=== PATIENT | female | born 1970 | race Caucasian/White ===

== ENCOUNTER → 2017-03-08 | Outpatient (REF) | payer MEDICARE ==
[~2017-03-08] MED LIST: /ONDA4TA PO; AMBI10TA PO; ANUS2.5C2 PR; BUSP15TA47 PO; DIAZ10TA2 PO; DIPH2.5L PO; DIVA500T9 PO; DRIS50002 PO; FOLI1TAB86 PO; HYDR25CA PO; LASI40TA PO; LORA10TA2 PO; MOBI7.5T10 PO; NICO21PAT EXT; OMEP40CA2 PO; ONDA4TAB2 PO; PROTPAK PO; ROBA750T4 PO; SERO1TAB PO; SERO50TA3 PO; SERT-141 PO; THERTAB20 PO; TOPI1CAP2 PO; TRAZ50TA4 PO; VALT1TAB PO; VIST50CA PO; VITA100T2 PO; ZOLO100T PO; ZOLO50TA PO; ZYPR5TAB2 PO; [UNRECOGNIZED DRUG - CODE] PO; [UNRECOGNIZED DRUG - CODE] PO; [UNRECOGNIZED DRUG - CODE] SC; [UNRECOGNIZED DRUG - OTHER] PO; pegasys PO
[2017-03-08 14:18] LABS: BASO % 0.3 % (0.0-1.0); EOS # 0.2 K/mm3 (0.0-0.50); EOS % 3.3 % (0.0-3.0); LARGE UNSTAINED CELL # 0.1 K/mm3 (0.0-0.4); LARGE UNSTAINED CELL % 1.5 % (0.0-4.0); LYMPH # 2.2 K/mm3 (1.5-4.5); LYMPH % 37.6 % (24.0-44.0); MEAN CORPUSCULAR HEMOGLOBIN 35.1 pg (27.0-33.0); MEAN CORPUSCULAR HGB CONC 34.2 g/dl (32.0-36.5); MEAN CORPUSCULAR VOLUME 102.7 fl (80.0-96.0); MONO # 0.3 K/mm3 (0.0-0.8); MONO % 5.4 % (0.0-5.0); NEUTROPHILS % 51.9 % (36.0-66.0); PLATELET COUNT, AUTOMATED 218 k/mm3 (150-450); RED CELL DISTRIBUTION WIDTH 12.5 % (11.5-14.5); WHITE BLOOD COUNT 5.8 K/mm3 (4.0-10.0)
[2017-03-08 14:42] LABS: ALBUMIN 3.7 GM/DL (3.2-5.2); ALBUMIN/GLOBULIN RATIO 1.12 (1.00-1.93); ALKALINE PHOSPHATASE 144 U/L (45-117); ALT/SGPT 197 U/L (12-78); ANION GAP 10 MEQ/L (8-16); AST/SGOT 134 U/L (15-37); BLOOD UREA NITROGEN 9 MG/DL (7-18); CALCIUM LEVEL 9.3 MG/DL (8.5-10.1); CARBON DIOXIDE LEVEL 26 MEQ/L (21-32); CHLORIDE LEVEL 106 MEQ/L (98-107); CREATININE FOR GFR 0.74 MG/DL (0.55-1.02); GLOMERULAR FILTRATION RATE > 60.0 (>58); GLUCOSE, FASTING 90 MG/DL (70-105); POTASSIUM SERUM 3.8 MEQ/L (3.5-5.1); SODIUM LEVEL 142 MEQ/L (136-145)
== END ==
LOC: M SFHCPLAZ 10:02
PROVIDERS: ATTEND Internal Medicine
DX: R10.12 Left upper quadrant pain (principal)

== ENCOUNTER → 2017-03-09 | Outpatient (REF) | payer MEDICARE | LOC: M SFHCPLAZ 15:39 | PROVIDERS: ATTEND Family Medicine | DX: R10.12 Left upper quadrant pain (principal) ==

== ENCOUNTER → 2017-03-25 | Outpatient (REF) | payer MEDICARE ==
[2017-03-30 00:10] LABS: BENZODIAZEPINES, URINE SCREEN Negative ng/mL (Cutoff=200); METHADONE, URINE SCREEN Negative ng/mL (Cutoff=300); pH, URINE 5.9 (4.5-8.9)
== END ==
LOC: M SFHCPLAZ 16:14
DX: Z00.00 Encounter for general adult medical examination without abnormal findings (principal); R74.8 Abnormal levels of other serum enzymes; Z72.0 Tobacco use; F10.20 Alcohol dependence, uncomplicated; R19.5 Other fecal abnormalities; Z86.19 Personal history of other infectious and parasitic diseases; F31.9 Bipolar disorder, unspecified

== ENCOUNTER → 2017-03-31 | Outpatient (CLI) | payer MEDICARE ==
[2017-03-31 12:10] LABS: BASO % 0.4 % (0.0-1.0); EOS # 0.2 K/mm3 (0.0-0.50); EOS % 3.2 % (0.0-3.0); LARGE UNSTAINED CELL # 0.1 K/mm3 (0.0-0.4); LARGE UNSTAINED CELL % 1.5 % (0.0-4.0); LYMPH # 2.4 K/mm3 (1.5-4.5); LYMPH % 41.8 % (24.0-44.0); MEAN CORPUSCULAR HEMOGLOBIN 34.7 pg (27.0-33.0); MEAN CORPUSCULAR HGB CONC 34.7 g/dl (32.0-36.5); MONO # 0.2 K/mm3 (0.0-0.8); MONO % 4.2 % (0.0-5.0); NEUTROPHILS # 2.7 K/mm3 (1.8-7.7); NEUTROPHILS % 48.8 % (36.0-66.0); PLATELET COUNT, AUTOMATED 194 k/mm3 (150-450); RED CELL DISTRIBUTION WIDTH 12.9 % (11.5-14.5); WHITE BLOOD COUNT 5.5 K/mm3 (4.0-10.0)
[2017-03-31 12:32] LABS: ERYTHROCYTE SEDIMENTATION RATE 34 mm/hr (0-20)
[2017-03-31 13:14] LABS: ALBUMIN 3.6 GM/DL (3.2-5.2); ALBUMIN/GLOBULIN RATIO 1.16 (1.00-1.93); ALKALINE PHOSPHATASE 150 U/L (45-117); ALT/SGPT 214 U/L (12-78); ANION GAP 7 MEQ/L (8-16); AST/SGOT 148 U/L (15-37); BILIRUBIN,DIRECT 0.2 MG/DL (0.0-0.2); BILIRUBIN,TOTAL 0.6 MG/DL (0.2-1.0); BLOOD UREA NITROGEN 7 MG/DL (7-18); CALCIUM LEVEL 8.8 MG/DL (8.5-10.1); CARBON DIOXIDE LEVEL 25 MEQ/L (21-32); CHLORIDE LEVEL 110 MEQ/L (98-107); CREATININE FOR GFR 0.72 MG/DL (0.55-1.02); GLOMERULAR FILTRATION RATE > 60.0 (>58); GLUCOSE, FASTING 91 MG/DL (70-105); POTASSIUM SERUM 4.1 MEQ/L (3.5-5.1); SODIUM LEVEL 142 MEQ/L (136-145); TOTAL PROTEIN 6.7 GM/DL (6.4-8.2)
[2017-04-06 00:06] LABS: BENZODIAZEPINES, URINE SCREEN Negative ng/mL (Cutoff=200); ENDOMYSIAL ABY IgA Negative (Negative); IgA ULTRASENSITIVE 95.1 mg/dL (72-321); METHADONE, URINE SCREEN Negative ng/mL (Cutoff=300); pH, URINE 5.9 (4.5-8.9)
== END ==
LOC: M LAB 11:06
PROVIDERS: ATTEND Hospitalist
DX: Z00.00 Encounter for general adult medical examination without abnormal findings (principal); R74.8 Abnormal levels of other serum enzymes

== ENCOUNTER → 2017-04-05 | Outpatient (CLI) | payer MEDICARE ==
[~2017-04-05] MED LIST changes: +GASTROGRAFIN SOLUTION 30ML (Q9963) As Ordered ONE; +ISOVUE-370 76% 100ML VIAL (Q9967) As Ordered ONE
--- NOTE | 2017-04-05 18:48 | REP ---
CT ABDOMEN: REASON: Elevated LFT's. COMPARISON: 07/08/2015. CONTRAST: 100 mL Isovue-370. Lung bases are clear. The precontrast enhanced portion of the exam shows hepatic and splenic densities to be within normal limits. There are no nephroliths. There are no choleliths. Two focal areas of low density are seen in the liver, one in the anterior segment of the segment of the right lobe and the other in the posterior segment Of the right lobe. The larger of the two measures 1.9 cm in its greatest dimension while the smaller of the two is too small for precise CT characterization. The larger of the two has slightly higher than water Hounsfield unit readings. The contrast enhanced portion of the exam shows in addition to the aforementioned two tiny low density lesions, a third low density lesion seen in the lateral segment of the left lobe of the liver also too small for precise CT characterization. None of these lesions show any form of contrast enhancement, either central or peripheral. They are likely small hepatic cysts. There are no enhancing hepatic lesions. The gallbladder, spleen, pancreas, adrenal glands and kidneys are within normal limits. The abdominal aorta and paraaortic regions are within normal limits. The bowel loops and their mesenteries are within normal limits. There is no free fluid or free air. There is no intraabdominal mass or adenopathy. CT PELVIS: The bowel loops and their mesenteries are within normal limits. There is no mass or adenopathy. There is no free fluid or free air. Bone window technique throughout the exam shows the osseous structures to be within normal limits. IMPRESSION: 1. Small low density hepatic lesions completely stable from 07/08/2015 and likely representing small cysts as described above. 2. No evidence of acute intraabdominal or intrapelvic disease with findings as described above. There has been no significant change from the prior exam. Signed by Jak Gay DO 04/05/2017 07:03 P
== END ==
LOC: M RAD 16:20
DX: R74.8 Abnormal levels of other serum enzymes (principal); K76.9 Liver disease, unspecified
CPT/HCPCS: 74178; Q9963; Q9967

== ENCOUNTER → 2017-04-14 | Outpatient (REF) | payer MEDICARE ==
[~2017-04-14] MED LIST changes: -GASTROGRAFIN SOLUTION 30ML (Q9963) As Ordered ONE; -ISOVUE-370 76% 100ML VIAL (Q9967) As Ordered ONE
[2017-04-20 00:09] LABS: BENZODIAZEPINES, URINE SCREEN Negative ng/mL (Cutoff=200); METHADONE, URINE SCREEN Negative ng/mL (Cutoff=300); pH, URINE 6.5 (4.5-8.9)
== END ==
LOC: M SFHCPLAZ 17:10
PROVIDERS: ATTEND Hospitalist
DX: F19.10 Other psychoactive substance abuse, uncomplicated (principal); Z79.899 Other long term (current) drug therapy

== ENCOUNTER → 2017-05-19 | Outpatient (CLI) | payer MEDICARE, MEDICAID ==
[~2017-05-19] VITALS: Ht 165.1 cm; Wt 104.3 kg
[~2017-05-19] MED LIST changes: +MOBI4TAB PO; -MOBI7.5T10 PO; +NS 1,000 ML IV ONE; +PROPOFOL 500 MG/50 ML VIAL As Ordered ONE; +TRAZ50TA11 PO; -TRAZ50TA4 PO
--- NOTE | 2017-05-19 11:53 | ROOR ---
Patient Name: Bianca Araiza Procedure Date: 05/19/2017 11:34 AM Date of : 1970 Age: 46 Room: [facility] Gender: Female Note Status: Finalized Procedure: Upper GI endoscopy Indications: Suspected esophageal reflux Providers: Moo Swan Jr, MD Referring MD: EVANS BELTRÁN MD Requesting Provider: Medicines: Propofol per Anesthesia Complications: No immediate complications. Procedure: Pre-Anesthesia Assessment: - Prior to the procedure, a History and Physical was performed, and patient medications and allergies were reviewed. The patient is competent. The risks and benefits of the procedure and the sedation options and risks were discussed with the patient. All questions were answered and informed consent was obtained. Patient identification and proposed procedure were verified by the physician and the nurse in the pre-procedure area and in the procedure room. Mental Status Examination: alert and oriented. Airway Examination: normal oropharyngeal airway and neck mobility. Respiratory Examination: clear to auscultation. CV Examination: normal. ASA Grade Assessment: II - A patient with mild systemic disease. After reviewing the risks and benefits, the patient was deemed in satisfactory condition to undergo the procedure. The anesthesia plan was to use moderate sedation / analgesia (conscious sedation). Immediately prior to administration of medications, the patient was re-assessed for adequacy to receive sedatives. The heart rate, respiratory rate, oxygen saturations, blood pressure, adequacy of pulmonary ventilation, and response to care were monitored throughout the procedure. The physical status of the patient was re-assessed after the procedure. The Endoscope was introduced through the mouth, and advanced to the second part of duodenum. The upper GI endoscopy was accomplished without difficulty. The patient tolerated the procedure well. Findings: The upper third of the esophagus, middle third of the esophagus and lower third of the esophagus were normal. The cardia, gastric fundus and gastric body were normal. Localized moderate inflammation characterized by congestion (edema), erosions, erythema, friability and granularity was found in the prepyloric region of the stomach and at the pylorus. Biopsies were taken with a cold forceps for histology. The duodenal bulb, first portion of the duodenum and second portion of the duodenum were normal. Biopsies for histology were taken with a cold forceps for evaluation of celiac disease. Impression: - Normal upper third of esophagus, middle third of esophagus and lower third of esophagus. - Normal cardia, gastric fundus and gastric body. - Gastritis. Biopsied. - Normal duodenal bulb, first portion of the duodenum and second portion of the duodenum. Biopsied. Recommendation: - Discharge patient to home (ambulatory). - Return to my office in 3 weeks. Moo Swan MD Moo Swan Jr, MD 05/19/2017 11:53:14 AM This report has been signed electronically. Number of Addenda: 0 Note Initiated On: 05/19/2017 11:34 AM Estimated Blood Loss: Estimated blood loss: none.
--- NOTE | 2017-05-19 12:06 | ROOR ---
Patient Name: Bianca Araiza Procedure Date: 05/19/2017 11:35 AM Date of : 1970 Age: 46 Room: [facility] Gender: Female Note Status: Finalized Procedure: Colonoscopy Indications: Generalized abdominal pain, Constipation Providers: Moo Swan Jr, MD Referring MD: EVANS BELTRÁN MD Requesting Provider: Medicines: Propofol per Anesthesia Complications: No immediate complications. Procedure: Pre-Anesthesia Assessment: - Prior to the procedure, a History and Physical was performed, and patient medications and allergies were reviewed. The patient is competent. The risks and benefits of the procedure and the sedation options and risks were discussed with the patient. All questions were answered and informed consent was obtained. Patient identification and proposed procedure were verified by the physician and the nurse in the pre-procedure area and in the procedure room. Mental Status Examination: alert and oriented. Airway Examination: normal oropharyngeal airway and neck mobility. Respiratory Examination: clear to auscultation. CV Examination: normal. ASA Grade Assessment: II - A patient with mild systemic disease. After reviewing the risks and benefits, the patient was deemed in satisfactory condition to undergo the procedure. The anesthesia plan was to use moderate sedation / analgesia (conscious sedation). Immediately prior to administration of medications, the patient was re-assessed for adequacy to receive sedatives. The heart rate, respiratory rate, oxygen saturations, blood pressure, adequacy of pulmonary ventilation, and response to care were monitored throughout the procedure. The physical status of the patient was re-assessed after the procedure. The Colonoscope was introduced through the anus and advanced to the cecum, identified by appendiceal orifice and ileocecal valve. The colonoscopy was performed without difficulty. The patient tolerated the procedure well. The quality of the bowel preparation was adequate and good. Findings: The perianal exam findings include non-thrombosed internal hemorrhoids. The rectum, sigmoid colon, descending colon, transverse colon, ascending colon, cecum and ileocecal valve appeared normal. Estimated blood loss: none. Impression: - Non-thrombosed internal hemorrhoids found on perianal exam. - The rectum, sigmoid colon, descending colon, transverse colon, ascending colon, cecum and ileocecal valve are normal. - No specimens collected. Recommendation: - Discharge patient to home (ambulatory). - Repeat colonoscopy in 10 years for screening purposes. Moo Swan MD Moo Swan Jr, MD 05/19/2017 12:05:51 PM This report has been signed electronically. Number of Addenda: 0 Note Initiated On: 05/19/2017 11:35 AM Estimated Blood Loss: Estimated blood loss: none.
[2017-05-19 12:30] VITALS: BP 119/83
== END ==
LOC: M OPP 10:11
PROVIDERS: ATTEND Surgery
DX: K64.8 Other hemorrhoids (principal); R10.13 Epigastric pain; R19.4 Change in bowel habit; Z80.0 Family history of malignant neoplasm of digestive organs; K21.9 Gastro-esophageal reflux disease without esophagitis; K29.70 Gastritis, unspecified, without bleeding; Z79.899 Other long term (current) drug therapy; F17.210 Nicotine dependence, cigarettes, uncomplicated; Z86.19 Personal history of other infectious and parasitic diseases; Z86.59 Personal history of other mental and behavioral disorders; M54.9 Dorsalgia, unspecified; Z86.69 Personal history of other diseases of the nervous system and sense organs; Z86.79 Personal history of other diseases of the circulatory system

== ENCOUNTER → 2017-10-18 | Outpatient (CLI) | payer MEDICARE, MEDICAID ==
[~2017-10-18] MED LIST changes: -NS 1,000 ML IV ONE; -PROPOFOL 500 MG/50 ML VIAL As Ordered ONE
--- NOTE | 2017-10-18 15:08 | REP ---
Cervical spine series: Eight views. History: Neck pain. Comparison study: February 04, 2016. Findings: Lateral views done in flexion, extension and neutral position show preserved vertebral body heights and normal alignment. No subluxation or instability is seen. There is discogenic spurring anteriorly at the C5-6 and to a lesser extent C6-7 disc levels. Swimmers lateral view shows no additional abnormality. Open-mouth odontoid view shows that the mandible is edentulous. AP view is unremarkable. Oblique images demonstrate intact neural foramina bilaterally at each cervical level and normally aligned facets. The findings are status quo from February 04, 2016 prior study. Impression: Mild degenerative disc changes at C5-6 and C6-7. No significant change from February 04, 2016 prior radiographs. Signed by Neil Hahn MD 10/18/2017 04:01 P
--- NOTE | 2017-10-18 15:10 | REP ---
Lumbar spine series: Seven views. History: Pain. Unspecified obesity. Spondylosis. Comparison study: April 07, 2016 intraoperative film. Comparison is also made with radiographs from February 04, 2016. Findings: Lumbar vertebral body heights are preserved. Alignment is normal. Pedicles and posterior elements are intact. There is no evidence of spondylolysis or spondylolisthesis. There is an old anterior wedge compression deformity at T12. This is unchanged. There is mild disc space narrowing at L3-4 and L4-5. Sacrum and SI joints are intact. Psoas margins are symmetric. Impression: Old mild wedge compression deformity at T12. Degenerative disc changes at L4-5 and L3-4. Otherwise negative. Signed by Neil Hahn MD 10/18/2017 04:01 P
== END ==
LOC: M LAB 10:17
PROVIDERS: ATTEND Neurological Surgery
DX: E66.9 Obesity, unspecified (principal)

== ENCOUNTER 2018-01-30 00:31 | Emergency (ER) | payer MEDICARE, MEDICAID ==
[2018-01-30 01:20] LABS: HEMATOCRIT 43.5 % (36.0-47.0); HEMOGLOBIN 15.1 g/dl (12.0-16.0); MEAN CORPUSCULAR HEMOGLOBIN 34.1 pg (27.0-33.0); MEAN CORPUSCULAR HGB CONC 34.7 g/dl (32.0-36.5); MEAN CORPUSCULAR VOLUME 98.2 fl (80.0-96.0); PLATELET COUNT, AUTOMATED 208 10^3/uL (150-450); RED BLOOD COUNT 4.43 10^6/uL (4.00-5.40); RED CELL DISTRIBUTION WIDTH 12.9 % (11.5-14.5); WHITE BLOOD COUNT 6.2 10^3/uL (4.0-10.0)
[2018-01-30 01:36] LABS: CONTROL LINE HCG INT CTR LINE PRESENT; HCG, SERUM QUALITATIVE NEGATIVE (NEGATIVE)
[2018-01-30 01:49] LABS: ACETAMINOPHEN LEVEL < 2.0 UG/ML (10.0-30.0); ALBUMIN 3.6 GM/DL (3.2-5.2); ALBUMIN/GLOBULIN RATIO 1.03 (1.00-1.93); ALKALINE PHOSPHATASE 151 U/L (45-117); ALT/SGPT 100 U/L (12-78); ANION GAP 7 MEQ/L (8-16); AST/SGOT 78 U/L (7-37); BILIRUBIN,DIRECT 0.2 MG/DL (0.0-0.2); BILIRUBIN,TOTAL 0.5 MG/DL (0.2-1.0); BLOOD UREA NITROGEN 9 MG/DL (7-18); CALCIUM LEVEL 8.7 MG/DL (8.5-10.1); CARBON DIOXIDE LEVEL 24 MEQ/L (21-32); CHLORIDE LEVEL 116 MEQ/L (98-107); CREATININE FOR GFR 0.73 MG/DL (0.55-1.30); ETHYL ALCOHOL (ETHANOL) 0.294 % (0.000-0.010); GLOMERULAR FILTRATION RATE > 60.0 (>58); GLUCOSE, FASTING 108 MG/DL (70-100); POTASSIUM SERUM 3.9 MEQ/L (3.5-5.1); SALICYLATE LEVEL 3.3 MG/DL (5.0-30.0); SODIUM LEVEL 147 MEQ/L (136-145); TOTAL PROTEIN 7.1 GM/DL (6.4-8.2)
[2018-01-30 07:51] LABS: AMPHETAMINES LEVEL URINE NEGATIVE (NEGATIVE); BARBITURATES URINE NEGATIVE (NEGATIVE); BENZODIAZEPINES URINE NEGATIVE (NEGATIVE); CANNABINOIDS URINE NEGATIVE (NEGATIVE); COCAINE METABOLITE URINE NEGATIVE (NEGATIVE); METHADONE URINE NEGATIVE (NEGATIVE); OPIATES URINE NEGATIVE (NEGATIVE); PHENCYCLIDINE URINE NEGATIVE (NEGATIVE)
[2018-01-30] MEDS: IBUPROFEN 600 MG TAB PO (08:15)
== END 2018-01-30 09:39 | disposition home or self-care (01) ==
LOC: M ED 00:31
DX: F10.929 Alcohol use, unspecified with intoxication, unspecified (principal); F17.210 Nicotine dependence, cigarettes, uncomplicated
CPT/HCPCS: G0480

== ENCOUNTER → 2018-02-09 | Outpatient (REF) | payer MEDICARE, MEDICAID ==
[2018-02-09 18:31] LABS: ALBUMIN/GLOBULIN RATIO 1.03 (1.00-1.93); ALKALINE PHOSPHATASE 156 U/L (45-117); ALT/SGPT 215 U/L (12-78); ANION GAP 10 MEQ/L (8-16); AST/SGOT 106 U/L (7-37); BILIRUBIN,TOTAL 0.6 MG/DL (0.2-1.0); BLOOD UREA NITROGEN 13 MG/DL (7-18); CALCIUM LEVEL 9.5 MG/DL (8.5-10.1); CARBON DIOXIDE LEVEL 25 MEQ/L (21-32); CHLORIDE LEVEL 108 MEQ/L (98-107); CREATININE FOR GFR 0.77 MG/DL (0.55-1.30); FERRITIN 444 NG/ML (8-252); GLOMERULAR FILTRATION RATE > 60.0 (>58); GLUCOSE, FASTING 98 MG/DL (70-100); IRON (FE) 100 UG/DL (50-170); PERCENT SATURATION 22.9 % (13.2-45.0); POTASSIUM SERUM 3.7 MEQ/L (3.5-5.1); SODIUM LEVEL 143 MEQ/L (136-145); TOTAL IRON BINDING CAPACITY 436 UG/DL (250-450); TOTAL PROTEIN 7.9 GM/DL (6.4-8.2)
[2018-02-10 11:14] LABS: HEPATITIS B SURFACE ANTIGEN NEGATIVE (NEGATIVE)
[2018-02-10 11:29] LABS: HEPATITIS B CORE ANTIBODY IGM NEGATIVE (NEGATIVE)
[2018-02-10 11:31] LABS: HEPATITIS A ANTIBODY IGM NEGATIVE (NEGATIVE)
[2018-02-10 12:03] LABS: HEPATITIS C VIRUS ABY INDEX > 11.0 INDEX (<0.8)
[2018-02-13 08:06] LABS: ANTI-MITOCHONDRIAL ANTIBODY 1.3 Units (0.0-20.0); ANTINUCLEAR ANTIBODIES DIRECT Negative (Negative); LIVER-KIDNEY MICROSOMAL ABY 2.1 Units (0.0-20.0)
[2018-02-13 08:06] LABS: HCV RNA NAA QUALITATIVE Negative (Negative)
== END ==
LOC: M SFHCPLAZ 15:17
DX: R79.89 Other specified abnormal findings of blood chemistry (principal); R06.02 Shortness of breath; R07.9 Chest pain, unspecified
CPT/HCPCS: 83550

== ENCOUNTER → 2018-02-27 | Outpatient (CLI) | payer MEDICARE, MEDICAID ==
[2018-02-27 08:26] LABS: GLUCOSE, FASTING 106 MG/DL (70-100)
[2018-02-27 10:13] LABS: 1 HR GLUCOSE 198 MG/DL (LESS THAN 199)
[2018-02-27 10:57] LABS: 2 HR GLUCOSE 139 MG/DL (LESS THAN 140)
== END ==
LOC: M LAB 07:39
DX: Z01.812 Encounter for preprocedural laboratory examination (principal); E66.01 Morbid (severe) obesity due to excess calories; R73.09 Other abnormal glucose
CPT/HCPCS: 82951

== ENCOUNTER → 2018-03-10 | Outpatient (CLI) | payer MEDICARE, MEDICAID | LOC: M WHC 12:56 | DX: Z12.31 Encounter for screening mammogram for malignant neoplasm of breast (principal); Z78.0 Asymptomatic menopausal state | CPT/HCPCS: 77067 ==

== ENCOUNTER → 2018-03-22 | Outpatient (CLI) | payer MEDICARE, MEDICAID | LOC: M SLEEP 18:45 | DX: R40.0 Somnolence (principal) | CPT/HCPCS: 95810 ==

== ENCOUNTER 2018-05-18 00:57 | Emergency (ER) | payer MEDICARE, MEDICAID ==
[2018-05-18 02:55] LABS: ANION GAP 11 MEQ/L (8-16); BLOOD UREA NITROGEN 9 MG/DL (7-18); CALCIUM LEVEL 8.2 MG/DL (8.5-10.1); CARBON DIOXIDE LEVEL 27 MEQ/L (21-32); CHLORIDE LEVEL 106 MEQ/L (98-107); CREATININE FOR GFR 0.74 MG/DL (0.55-1.30); ETHYL ALCOHOL (ETHANOL) 0.194 % (0.000-0.010); GLOMERULAR FILTRATION RATE > 60.0 (>58); GLUCOSE, FASTING 102 MG/DL (70-100); SODIUM LEVEL 144 MEQ/L (136-145)
== END 2018-05-18 04:25 | disposition home or self-care (01) ==
LOC: M ED 00:57
DX: F10.220 Alcohol dependence with intoxication, uncomplicated (principal); F41.1 Generalized anxiety disorder; D64.9 Anemia, unspecified; F40.00 Agoraphobia, unspecified; B19.20 Unspecified viral hepatitis C without hepatic coma; F17.200 Nicotine dependence, unspecified, uncomplicated
CPT/HCPCS: G0480

== ENCOUNTER → 2018-06-02 | Outpatient (CLI) | payer MEDICARE, MEDICAID | LOC: M SLEEP 19:45 | DX: G47.33 Obstructive sleep apnea (adult) (pediatric) (principal); G47.61 Periodic limb movement disorder | CPT/HCPCS: 95811 ==

== ENCOUNTER 2018-07-03 16:23 | Emergency (ER) | payer MEDICARE, MEDICAID ==
[2018-07-03 16:44] LABS: BEDSIDE GLUCOSE 100 MG/DL (70-105)
[2018-07-03 16:55] LABS: BASO % 0.7 % (0.0-1.0); EOS # 0.1 10^3/uL (0.0-0.50); EOS % 1.3 % (0.0-3.0); HEMATOCRIT 44.4 % (36.0-47.0); HEMOGLOBIN 15.6 g/dl (12.0-15.5); IMMATURE GRANULOCYTE % 0.3 % (0-3.0); LYMPH # 3.2 10^3/uL (1.5-4.5); MEAN CORPUSCULAR HEMOGLOBIN 33.9 pg (27.0-33.0); MEAN CORPUSCULAR HGB CONC 35.1 g/dl (32.0-36.5); MEAN CORPUSCULAR VOLUME 96.5 fl (80.0-96.0); MONO # 0.4 10^3/uL (0.0-0.8); NEUTROPHILS # 2.3 10^3/uL (1.8-7.7); NEUTROPHILS % 37.7 % (36.0-66.0); PLATELET COUNT, AUTOMATED 178 10^3/uL (150-450); RED CELL DISTRIBUTION WIDTH 13.6 % (11.5-14.5); WHITE BLOOD COUNT 6.1 10^3/uL (4.0-10.0)
[2018-07-03] MEDS: KETOROLAC 30 MG/ML VIAL (J1885) IV (17:17)
[2018-07-03 17:29] LABS: AMPHETAMINES LEVEL URINE NEGATIVE (NEGATIVE); BARBITURATES URINE NEGATIVE (NEGATIVE); BENZODIAZEPINES URINE NEGATIVE (NEGATIVE); CANNABINOIDS URINE NEGATIVE (NEGATIVE); COCAINE METABOLITE URINE NEGATIVE (NEGATIVE); METHADONE URINE NEGATIVE (NEGATIVE); OPIATES URINE NEGATIVE (NEGATIVE); PHENCYCLIDINE URINE NEGATIVE (NEGATIVE)
[2018-07-03 17:40] LABS: ALBUMIN 3.8 GM/DL (3.2-5.2); ALBUMIN/GLOBULIN RATIO 1.06 (1.00-1.93); ALKALINE PHOSPHATASE 133 U/L (45-117); ALT/SGPT 303 U/L (12-78); ANION GAP 14 MEQ/L (8-16); AST/SGOT 498 U/L (7-37); BILIRUBIN,DIRECT 0.6 MG/DL (0.0-0.2); BILIRUBIN,TOTAL 1.3 MG/DL (0.2-1.0); BLOOD UREA NITROGEN 5 MG/DL (7-18); CALCIUM LEVEL 8.6 MG/DL (8.5-10.1); CARBON DIOXIDE LEVEL 25 MEQ/L (21-32); CHLORIDE LEVEL 104 MEQ/L (98-107); CPK CREATINE PHOSPHOKINASE 111 U/L (26-192); CREATININE FOR GFR 0.62 MG/DL (0.55-1.30); ETHYL ALCOHOL (ETHANOL) 0.311 % (0.000-0.010); GLOMERULAR FILTRATION RATE > 60.0 (>58); GLUCOSE, FASTING 97 MG/DL (70-100); POTASSIUM SERUM 3.3 MEQ/L (3.5-5.1); SALICYLATE LEVEL < 1.7 MG/DL (5.0-30.0); SODIUM LEVEL 143 MEQ/L (136-145); THYROID STIMULATING HORMONE 0.421 uIU/ML (0.358-3.740); TOTAL PROTEIN 7.4 GM/DL (6.4-8.2)
[2018-07-03 17:45] LABS: ACETAMINOPHEN LEVEL < 2.0 UG/ML (10.0-30.0)
== END 2018-07-03 17:35 | disposition left against medical advice (07) ==
LOC: M ED 16:23
DX: M54.9 Dorsalgia, unspecified (principal); R00.0 Tachycardia, unspecified; I45.19 Other right bundle-branch block; K76.0 Fatty (change of) liver, not elsewhere classified; R45.1 Restlessness and agitation; Z53.21 Procedure and treatment not carried out due to patient leaving prior to being seen by health care provider
CPT/HCPCS: J1885

== ENCOUNTER → 2018-08-10 | Outpatient (CLI) | payer MEDICARE, MEDICAID | LOC: M WHC 12:40 | DX: R10.2 Pelvic and perineal pain (principal); R93.89 Abnormal findings on diagnostic imaging of other specified body structures | CPT/HCPCS: 76830 ==

== ENCOUNTER 2018-12-24 22:38 | Emergency (ER) | payer MEDICARE, MEDICAID ==
[~2018-12-24 22:38] MED LIST changes: -DRIS50002 PO; +DRIS50003 PO; -LASI40TA PO; +LASI40TA9 PO; +SERO50TA27 PO; -SERO50TA3 PO; +TRAZ-160 PO; -TRAZ50TA11 PO
[2018-12-24 22:45] VITALS: BP 98/56
[2018-12-24] MEDS ORDERED: ACETAMINOPHEN TAB 650MG DOSE (2X325MG) PO ONE (23:45)
--- NOTE | 2018-12-25 08:35 | REP ---
LEFT KNEE, TWO VIEWS: HISTORY: Pain. There is no acute fracture or dislocation. The joint spaces are normal in appearance. IMPRESSION: There is no acute fracture or dislocation. Electronically Signed by Syed Javed MD 12/25/2018 08:56 A
--- NOTE | 2018-12-25 08:39 | REP ---
LEFT HIP, TWO VIEWS: HISTORY: Hip pain. There is no acute fracture or dislocation. The joint space is normal in appearance. IMPRESSION: There is no acute fracture or dislocation. Electronically Signed by Syed Javed MD 12/25/2018 08:56 A
== END 2018-12-25 00:08 | disposition home or self-care (01) ==
LOC: M ED 22:38
DX: S80.02XA Contusion of left knee, initial encounter (principal); S70.02XA Contusion of left hip, initial encounter; W19.XXXA Unspecified fall, initial encounter; Y92.099 Unspecified place in other non-institutional residence as the place of occurrence of the external cause; Y93.89 Activity, other specified; Y99.9 Unspecified external cause status

== ENCOUNTER 2019-01-20 06:33 | Inpatient (IN) | payer MEDICARE, MEDICAID ==
[~2019-01-20] VITALS: Ht 165.1 cm; Wt 89.9 kg
[2019-01-20 08:43] LABS: BASO # 0.1 10^3/uL (0.0-0.2); BASO % 0.6 % (0.0-1.0); EOS # 0.1 10^3/uL (0.0-0.50); EOS % 0.8 % (0.0-3.0); HEMATOCRIT 27.2 % (36.0-47.0); HEMOGLOBIN 9.4 g/dl (12.0-15.5); LYMPH # 1.7 10^3/uL (1.5-4.5); LYMPH % 17.8 % (24.0-44.0); MEAN CORPUSCULAR HEMOGLOBIN 36.9 pg (27.0-33.0); MEAN CORPUSCULAR HGB CONC 34.6 g/dl (32.0-36.5); MEAN CORPUSCULAR VOLUME 106.7 fl (80.0-96.0); MONO # 0.8 10^3/uL (0.0-0.8); MONO % 8.2 % (0.0-5.0); NEUTROPHILS # 6.8 10^3/uL (1.8-7.7); NEUTROPHILS % 72.1 % (36.0-66.0); PLATELET COUNT, AUTOMATED 151 10^3/uL (150-450); RED BLOOD COUNT 2.55 10^6/uL (4.00-5.40); WHITE BLOOD COUNT 9.5 10^3/uL (4.0-10.0)
[2019-01-20 09:09] LABS: INR 1.99
[2019-01-20 10:04] LABS: BLOOD UREA NITROGEN 4 MG/DL (7-18); CREATININE FOR GFR 0.52 MG/DL (0.55-1.30); GLOMERULAR FILTRATION RATE > 60.0 (>51); GLUCOSE, FASTING 94 MG/DL (70-100); POTASSIUM SERUM 2.8 MEQ/L (3.5-5.1); SODIUM LEVEL 133 MEQ/L (136-145)
[2019-01-20 10:05] LABS: CARBON DIOXIDE LEVEL 29 MEQ/L (21-32); CHLORIDE LEVEL 97 MEQ/L (98-107)
[2019-01-20 10:06] LABS: ALT/SGPT 34 U/L (12-78); CALCIUM LEVEL 7.3 MG/DL (8.5-10.1)
[2019-01-20 10:07] LABS: ALBUMIN 2.3 GM/DL (3.2-5.2); BILIRUBIN,DIRECT 8.8 MG/DL (0.0-0.2); BILIRUBIN,TOTAL 12.7 MG/DL (0.2-1.0); ETHYL ALCOHOL (ETHANOL) < 0.003 % (0.000-0.010); LIPASE 107 U/L (73-393); MAGNESIUM LEVEL 1.4 MG/DL (1.8-2.4); TOTAL PROTEIN 4.9 GM/DL (6.4-8.2)
[2019-01-20 10:08] LABS: ACETAMINOPHEN LEVEL < 2.0 UG/ML (10.0-30.0)
[2019-01-20] MEDS ORDERED: MAG SULF 1GM/100ML (MAG RUN) 1 GM in APPROPRIATE DILUENT 1 EA IV ONE ×3 (10:30→12:30)
[2019-01-20] MEDS ORDERED: POTASSIUM CHLORIDE 10 MEQ SR TABLET PO ONE (10:30)
--- NOTE | 2019-01-20 10:44 | REP ---
Liver ultrasound History: Jaundice. The gallbladder is distended. Sludge is present in the gallbladder. The gallbladder wall is thickened measuring 2.3 mm. The common bile duct measures 3.9 mm. The liver is enlarged. There is fatty infiltration of the liver. There are to see small in the left A1 in the right lobe. The left liver cyst measures 1.2 cm. The right liver cyst measures 2.1 cm. Multiple collateral vessels are seen in the ashley hepatis. There is no definite flow in the main portal vein. The right kidney measures 5.9 cm in transverse by 4.4 cm in AP by 10.6 cm in cephalocaudal dimensions. There is no hydronephrosis or mass. A small amount of free fluid is present in the right upper quadrant. Impression 1. Distended gallbladder containing sludge. There is no cholelithiasis. 2. Enlarged fatty liver. 3. Right and left liver cysts. 4. There is no definite flow in the main portal vein. This may represent portal vein thrombosis. 4. There is a small amount of free fluid in the right upper quadrant. Electronically Signed by Syed Javed MD 01/20/2019 10:35 A
[2019-01-20] MEDS ORDERED: OXAZEPAM 10 MG CAP PO PRN (12:00)
[2019-01-20] MEDS ORDERED: NICOTINE POLACRILEX 2 MG GUM PO PRN (12:00)
[2019-01-20] MEDS ORDERED: ONDANSETRON 4MG/2ML VIAL (J2405) IV PRN (12:30)
[2019-01-20] MEDS ORDERED: HEPARIN SOD (PORCINE) 5000 UNITS/ML VIAL IV PRN (12:45)
[2019-01-20] MEDS ORDERED: PROHANCE 279.3MG/ML 5ML VIAL (A9576) As Ordered ONE (12:51)
[2019-01-20] MEDS ORDERED: PROHANCE 279.3MG/ML 15ML VIAL (A9576) As Ordered ONE (12:52)
[2019-01-20] MEDS: LACTULOSE 20 GM/30 ML SYRUP UD PO SCH ×3 (12:59→21:11)
[2019-01-20] MEDS: NICOTINE 21MG/24HR 1 EA TRANSDERMAL TD SCH (13:50)
[2019-01-20] MEDS: THIAMINE 100 MG TAB PO SCH (13:50)
[2019-01-20] MEDS: FOLIC ACID 1 MG TAB PO SCH (13:50)
[2019-01-20] MEDS: MULTIVITAMINS/MINERALS THERAP 1 TAB PO SCH (13:50)
[2019-01-20] MEDS: SENOKOT S TAB PO SCH ×2 (13:50→21:11)
[2019-01-20] MEDS: PANTOPRAZOLE 40MG INJ (PROTONIX) (C9113) IV SCH ×2 (13:50→21:11)
[2019-01-20 13:53] LABS: PERCENT SATURATION 65.2 % (13.2-45.0)
[2019-01-20] MEDS ORDERED: LORazepam 2 MG/ML VIAL (J2060) IV STA (14:32)
[2019-01-20] MEDS ORDERED: LORazepam 2 MG/ML VIAL (J2060) IV PRN (15:00)
[2019-01-20 15:30] VITALS: BP 122/67
[2019-01-20 15:33] LABS: HEMATOCRIT 28.3 % (36.0-47.0); HEMOGLOBIN 9.7 g/dl (12.0-15.5)
[2019-01-20 15:35] VITALS: BP 122/67
[2019-01-20] MEDS: cefTRIAXone SOD 1 GM in D5W MINI-BAG PLUS 50 ML IV SCH (15:42)
[2019-01-20] MEDS: KCL 20MEQ in NS 1000ML 1,000 ML IV SCH (15:42)
--- NOTE | 2019-01-20 16:28 | REPVR ---
EXAM: MR Abdomen Without Contrast; Liver EXAM DATE/TIME: 01/20/2019 3:32 PM CLINICAL HISTORY: 48 years old, female; Pain; Abdominal pain; Generalized; Patient HX: PT is jaundice; Additional info: Liver protocol, mrcp TECHNIQUE: MR Abdomen without contrast. Exam focused on the liver. MIP reconstructed images were created and reviewed. COMPARISON: LIVER US 01/20/2019 9:13 AM FINDINGS: Liver: Liver measures 24 cm in craniocaudal span. A lobulated 1.4 cm T2 hyperintense lesion noted within the medial segment of the left lobe of the liver anterior to the bifurcation of the portal vein. 6 mm T2 hyperintense lesion in the posterior superior segment of the right lobe the liver. 1.8 cm T2 hyperintense lesion in the medial segment of left lobe of the liver superior to the plane of the portal vein. 9 mm rounded T2 hyperintense lesion in the posterior inferior segment of the right lobe of the liver 1.3 cm T2 hyperintense lesion in the lateral segment of the left lobe of the liver. Gallbladder and bile ducts: Common bile duct measures 3 mm. Pancreas: No pancreatic ductal dilatation. Spleen: Spleen measures 14.9 cm in craniocaudal span. Filippo hepatis: there is a lobulated T2 hyperintense lesion located slightly to the right of the pancreatic head and posterior to the neck of the gallbladder measuring 2.3 x 2.7 by 1.8 cm. Kidneys: 1.4 cm T2 hyperintense lesion in lower pole left kidney Intraperitoneal space: Trace amount of perisplenic ascites. Trace amount of dee-hepatic ascites. Other findings: Recanalized umbilical vein noted. Perirenal varices are present. Mesenteric varices. Varices suggested in the gastric fundus. IMPRESSION: 1. Normal MRCP. No ductal dilatation. 2. Hepatosplenomegaly with varices as described above. Small amount of intra-abdominal ascites. 3. Lobulated cystic structure adjacent to and not from the pancreatic head. It is not imaged in its entirety. This could represent a duplication cyst, pancreatic cyst, choledochal diverticulum or cystic lymph node. MR of the abdomen without and with gadolinium might be considered if clinically relevant 4. Multiple T2 hyperintense liver lesions. 5. T2 hyperintense left renal lesion not fully characterized without contrast. COMMENT: Consistent with the [employer] Incidental Findings Committee Report (J Am Mickey Radiol 2010): Unless the patients specific circumstances suggest otherwise, any liver lesion 0.5 cm or less, any cystic kidney lesion less than 1.0 cm, and/or any adrenal lesion 1.0 cm or less not otherwise characterized in this report as possessing suspicious or indeterminate imaging features is/are highly likely to be benign and do not require follow-up imaging or biopsy. Electronically signed by: Sophie Roque On 01/20/2019 16:27:50 PM
[2019-01-20] MEDS: predniSONE 50 MG TAB PO SCH (16:43)
[2019-01-20] MEDS: HEPARIN DRIP 25,000 UNITS in APPROPRIATE DILUENT 1 EA IV SCH (16:48)
--- NOTE | 2019-01-20 17:08 | HPE ---
DATE OF ADMISSION: 01/20/2019 PRIMARY CARE PROVIDER: Dr. Donohue CHIEF COMPLAINT: Jaundice. HISTORY OF PRESENT ILLNESS: This is a 48-year-old female patient with underlying medical history of hepatitis C, treated by Dr. Von Nelson, alcoholism, fatty liver with liver cysts with biopsy showing benign, chronic anemia, anxiety, agoraphobia, T12 compression fracture with fall, uterine prolapse, bipolar disorder, impulse control issues, anxiety disorder, who sent to the hospital when the patient was seen by the primary care provider with jaundice. The patient's boyfriend stated that the jaundice has been noted for the past week or so. The patient reported mild constipation, mild left lower quadrant abdominal discomfort. No nausea or vomiting. The patient is asymptomatic. The patient expresses minimal symptoms. Denies any chest pain, fevers or chills. The patient stated drinking about 10 shots of vodka a week ago, as well as one 20 ounce beer. The patient binge drinks. The patient stated that she used to drink a lot more than this. The patient also smokes one pack per day. ALLERGIES: No known drug allergies. PAST MEDICAL HISTORY: See above. PAST SURGICAL HISTORY: 1. Back surgery. 2. Tubal ligation. 3. Ruptured tubal . 4. Carpal tunnel release in right hand. FAMILY HISTORY: Unknown. Father of unknown cause. Mother is still alive with cholecystectomy. SOCIAL HISTORY: The patient is a heavy drinker, alcohol abuse. Used to drink every day and currently drinking intermittently, last drink one week ago was 10 shots of vodka and one 20 ounce beer. Smoking one pack per day since she was 10 years old. No other illicit drug use. REVIEW OF SYSTEMS: Reported constipation with left lower quadrant abdominal pain. Jaundice. Other review of systems are negative. HOME MEDICATIONS: The patient is noncompliant and does not take any medications. VITAL SIGNS: Temperature 98.4, pulse 105, respirations 20, blood pressure 122/67, pulse oximetry 94% on room air. GENERAL: The patient is alert, comfortable, jaundiced. HEENT: Normocephalic, atraumatic. Sclera icterus, jaundice. PULMONARY: Bilaterally clear. CARDIAC: Regular. S1, S2. ABDOMEN: Soft, nontender. EXTREMITIES: No clubbing, cyanosis or edema. LABORATORIES: WBC 9.5, hemoglobin and hematocrit 9.4/27.2, platelets 151. Sodium 133, potassium 3.8, chloride 97, bicarbonate 29, BUN 4, creatinine 0.52, magnesium 1.4, total bilirubin 12.7, direct bilirubin 8.8, ammonia 43. INR 1.99. ASSESSMENT AND PLAN: This is a 48-year-old female patient with underlying medical history of hepatitis C, as well as fatty liver, alcoholism/alcohol abuse, bipolar disorder, anxiety disorder, compression fracture of T12, who presented with jaundice. 1. Jaundice secondary to cirrhosis with liver failure, likely secondary to alcohol. We will get a hepatitis profile, as well as hepatitis C PCR. The patient stated that she was treated for hepatitis C by Dr. Nelson. We will also get ARLENE, ANCA, C-ANCA, P-ANCA, anti cardiolipin. Alcohol level negative. Acetaminophen level negative. IV fluids for hydration. The patient has a model for end-stage liver disease (MELD) score of 26 with 19.6% mortality in 3 months. Discriminate function of 48.5. Alcohol cessation recommended. We will get MRI of the liver. Ultrasound of the liver appreciated. 2. Possible hepatoportal thrombosis. Ultrasound appreciated. We will get ultrasound with Doppler, as well as MRI of the liver. Started anticoagulation. Consented for transfusion. Monitor hemoglobin and hematocrit. Followup laboratories, as mentioned above. 3. Alcoholic hepatitis. Prednisone has been started. 4. Alcohol abuse. Monitor for withdrawal. Serax as needed. Thiamine, folate and multivitamin. Supportive care. 5. Advanced cirrhosis with jaundice, hyperbilirubinemia. Workup has been ordered, including laboratories, MRI of the liver, ultrasound of the liver with Doppler. Followup INR. Followup liver functions and bilirubin. Case discussed with Dr. Yeh, gastroenterology. Rocephin for SBE prophylaxis. Prednisone given discriminate function of 48.5 for alcoholic hepatitis. 6. Anemia. The patient has significant anemia compared to previous. History does not support manifest of esophageal varices. The patient did have esophagogastroduodenoscopy (EGD) 2 years ago. Hemoglobin and hematocrit remain relatively stable. Consented for transfusion. SBE prophylaxis, Rocephin has been started. Anemia workup has been sent. 7. Hypokalemia and hypomagnesemia. Supplemented. 8. Smoking. Counseling provided. Nicotine patch. 9. Deep vein thrombosis (DVT) prophylaxis. Thromboembolic compression stockings (TEDS) and sequentials. Place the patient on heparin drip for portal venous thrombosis suspected, pending further studies. DISPOSITION: Pending further workup. The patient has advanced liver disease. Poor long-term prognosis. Counseling provided.
[2019-01-20 20:00] VITALS: BP 96/55
[2019-01-20 20:13] LABS: HEMATOCRIT 25.7 % (36.0-47.0); HEMOGLOBIN 8.9 g/dl (12.0-15.5)
[2019-01-20 20:26] LABS: BLOOD UREA NITROGEN 3 MG/DL (7-18); CALCIUM LEVEL 7.3 MG/DL (8.5-10.1); CARBON DIOXIDE LEVEL 27 MEQ/L (21-32); CHLORIDE LEVEL 98 MEQ/L (98-107); CREATININE FOR GFR 0.69 MG/DL (0.55-1.30); GLOMERULAR FILTRATION RATE > 60.0 (>51); GLUCOSE, FASTING 131 MG/DL (70-100); MAGNESIUM LEVEL 2.4 MG/DL (1.8-2.4); POTASSIUM SERUM 3.1 MEQ/L (3.5-5.1); SODIUM LEVEL 134 MEQ/L (136-145)
[2019-01-20 23:42] LABS: HEMATOCRIT 26.1 % (36.0-47.0)
[2019-01-20 23:59] VITALS: BP 94/48
[2019-01-21] VITALS (9 sets, daily range): BP systolic 92–106; BP diastolic 48–64
[2019-01-21] MEDS: KCL 20MEQ in NS 1000ML 1,000 ML IV SCH (05:28)
[2019-01-21 07:48] LABS: HEMATOCRIT 26.9 % (36.0-47.0); HEMOGLOBIN 9.3 g/dl (12.0-15.5); MEAN CORPUSCULAR HEMOGLOBIN 36.9 pg (27.0-33.0); MEAN CORPUSCULAR HGB CONC 34.6 g/dl (32.0-36.5); MEAN CORPUSCULAR VOLUME 106.7 fl (80.0-96.0); PLATELET COUNT, AUTOMATED 157 10^3/uL (150-450); RED BLOOD COUNT 2.52 10^6/uL (4.00-5.40); WHITE BLOOD COUNT 9.8 10^3/uL (4.0-10.0)
[2019-01-21] MEDS ORDERED: POTASSIUM CHLORIDE 10 MEQ SR TABLET PO ONE (08:00)
[2019-01-21 08:15] LABS: INR 2.04; PROTHROMBIN TIME 23.4 SECONDS (12.1-14.4)
[2019-01-21 08:19] LABS: PARTIAL THROMBOPLASTIN TIME 130.8 SECONDS (25.4-37.6)
[2019-01-21 08:29] LABS: ALBUMIN 2.3 GM/DL (3.2-5.2); ALT/SGPT 38 U/L (12-78); BILIRUBIN,TOTAL 12.3 MG/DL (0.2-1.0); BLOOD UREA NITROGEN 4 MG/DL (7-18); CALCIUM LEVEL 7.4 MG/DL (8.5-10.1); CARBON DIOXIDE LEVEL 25 MEQ/L (21-32); CHLORIDE LEVEL 98 MEQ/L (98-107); CREATININE FOR GFR 0.63 MG/DL (0.55-1.30); GLOMERULAR FILTRATION RATE > 60.0 (>51); GLUCOSE, FASTING 153 MG/DL (70-100); MAGNESIUM LEVEL 2.2 MG/DL (1.8-2.4); POTASSIUM SERUM 3.1 MEQ/L (3.5-5.1); SODIUM LEVEL 131 MEQ/L (136-145); TOTAL PROTEIN 5.9 GM/DL (6.4-8.2)
[2019-01-21] MEDS: PANTOPRAZOLE 40MG INJ (PROTONIX) (C9113) IV SCH ×2 (10:22→21:20)
[2019-01-21] MEDS: NICOTINE 21MG/24HR 1 EA TRANSDERMAL TD SCH (10:22)
[2019-01-21] MEDS: LACTULOSE 20 GM/30 ML SYRUP UD PO SCH ×3 (10:23→21:20)
[2019-01-21] MEDS: THIAMINE 100 MG TAB PO SCH (10:23)
[2019-01-21] MEDS: FOLIC ACID 1 MG TAB PO SCH (10:23)
[2019-01-21] MEDS: SENOKOT S TAB PO SCH ×2 (10:23→21:20)
[2019-01-21] MEDS: predniSONE 50 MG TAB PO SCH (10:23)
[2019-01-21] MEDS: MULTIVITAMINS/MINERALS THERAP 1 TAB PO SCH (10:23)
[2019-01-21] MEDS: rOPINIRole 0.25 MG TAB(REQUIP) PO SCH ×3 (10:47→21:20)
[2019-01-21] MEDS: LORazepam 2 MG/ML VIAL (J2060) IV PRN ×2 (11:00→11:30)
--- NOTE | 2019-01-21 11:01 | REP ---
Portal vein Doppler ultrasound: No vascular flow can be identified within the main portal vein with color Doppler ultrasound with Doppler waveforms. This is compatible with main portal vein thrombosis. There is vascular flow in the right and the left intrahepatic portal veins. The umbilical vein is recanalized. There is no biliary duct dilatation, the common biliary duct measures 3.4 mm in diameter. Hepatic cysts are identified. There is no cholelithiasis. There is minimal abdominal ascites. Impression: Findings are compatible with main portal vein thrombosis. Upper abdomen ultrasound: The spleen measures 15.6 by 4.3 x 13.7 cm for a volume of 190 March. The left kidney is normal size. The abdominal aorta is unremarkable. Electronically Signed by Shivam Serrano MD 01/21/2019 10:53 A
[2019-01-21] MEDS ORDERED: PROHANCE 279.3MG/ML 5ML VIAL (A9576) As Ordered ONE (11:03)
[2019-01-21] MEDS ORDERED: PROHANCE 279.3MG/ML 15ML VIAL (A9576) As Ordered ONE (11:04)
[2019-01-21] MEDS ORDERED: LORazepam 2 MG/ML VIAL (J2060) As Ordered ONE (11:56)
[2019-01-21] MEDS ORDERED: LORazepam 2 MG/ML VIAL (J2060) IV ONE (12:00)
[2019-01-21] MEDS: cefTRIAXone SOD 1 GM in D5W MINI-BAG PLUS 50 ML IV SCH (12:55)
--- NOTE | 2019-01-21 15:07 | REPVR ---
EXAM: MR Abdomen Without and With Contrast; Liver EXAM DATE/TIME: 01/21/2019 12:17 PM CLINICAL HISTORY: 48 years old, female; Pain; Abdominal pain; Generalized; Patient HX: PT is jaundice best images possible PT continued to get leg cramps and was medicated two times to help; Additional info: Liver protocol TECHNIQUE: MR Abdomen with and without intravenous contrast. Exam focused on the liver. CONTRAST: Contrast Material: 16 ml of prohance; Contrast Route: power injection COMPARISON: MRI ABDOMEN WITHOUT CONTRAST 01/20/2019 2:07 PM FINDINGS: Liver: There is a 2.5 CM cyst of the liver near the ashley hepatis. There is a 1 CM cyst posterior aspect of the right lobe liver. Small cyst left lobe of the liver. A 2.8 CM cystic structure near the pylorus. Gallbladder and bile ducts: The Common bile duct appears normal in size. There is a large amount of sludge in the dependent portion of gallbladder. There is fluid along the margin of the gallbladder and this is possibly the result of pancreatitis , cholecystitis or ascites. Pancreas: Normal sized pancreatic duct. Adrenals: Normal appearing adrenal glands. Kidneys and ureters: Normal appearing kidneys. Intraperitoneal space: There was a great deal of patient motion making the MRI suboptimal, therefore it would be helpful to have a CT scan of the abdomen for further evaluation. Other findings: Continue thrombolysis of the main portal vein. IMPRESSION: 1. Thrombosis of the main portal vein is thought to be present. Because of motion artifact a CT scan would be helpful for further evaluation. 2. There is fluid along the margin of the pancreas, gallbladder, liver and spleen. This fluid may be due to ascites and portal vein thrombosis. This can also be seen with cholecystitis and pancreatitis. 3. Prominent sludge within the gallbladder. Normal-sized common bile duct. 4. A 2.8 CM cyst near the gastric antrum and pancreas can be seen on the CT scan of 07/03/2018. A followup CT would be helpful for comparison since the MRI had significant motion artifact. Electronically signed by: Danial Reynoso On 01/21/2019 15:06:49 PM
--- NOTE | 2019-01-21 15:42 | IPNPDOC ---
Text Note Date of Service The patient was seen on 01/21/19. NOTE Reported restless leg. Denied chest pain, sob, abd pain, n/v GENERAL: The patient is alert, comfortable, jaundiced. HEENT: Normocephalic, atraumatic. Sclera icterus, jaundice. PULMONARY: Bilaterally clear. CARDIAC: Regular. S1, S2. ABDOMEN: Soft, nontender. EXTREMITIES: No clubbing, cyanosis or edema. ASSESSMENT AND PLAN: This is a 48-year-old female patient with underlying medical history of hepatitis C, as well as fatty liver, alcoholism/alcohol abuse, bipolar disorder, anxiety disorder, compression fracture of T12, who presented with jaundice. 1. Jaundice secondary to cirrhosis with liver failure, likely secondary to alcohol. We will get a hepatitis profile, as well as hepatitis C PCR. The patient stated that she was treated for hepatitis C by Dr. Nelson. We will also get ARLENE, ANCA, C-ANCA, P-ANCA, anti cardiolipin. Alcohol level negative. Acetaminophen level negative. IV fluids for hydration providered. The patient has a model for end-stage liver disease (MELD) score of 26 with 19.6% mortality in 3 months. Discriminate function of 48.5. Alcohol cessation recommended. MRI of the liver. Ultrasound of the liver appreciated. 2. Possible hepatoportal thrombosis. Ultrasound appreciated. We will get ultrasound with Doppler, as well as MRI of the liver. Started anticoagulation. Heparin Drip, f/u CBC, PTT Consented for transfusion. Monitor hemoglobin and hematocrit. Followup laboratories, as mentioned above. 3. Alcoholic hepatitis. Prednisone has been started. 4. Alcohol abuse. Monitor for withdrawal. Serax as needed. Thiamine, folate and multivitamin. Supportive care. 5. Advanced cirrhosis with jaundice, hyperbilirubinemia. Workup has been ordered, including laboratories, MRI of the liver, ultrasound of the liver with Doppler. Followup INR. Followup liver functions and bilirubin. Case discussed with Dr. Yeh, gastroenterology. Rocephin for SBE prophylaxis. Prednisone given discriminate function of 48.5 for alcoholic hepatitis. 6. Anemia. The patient has significant anemia compared to previous. History does not support manifest of esophageal varices. The patient did have esophagogastroduodenoscopy (EGD) 2 years ago. Hemoglobin and hematocrit remain relatively stable. Consented for transfusion. SBE prophylaxis, Rocephin has been started. Anemia workup has been sent. 7. Hypokalemia and hypomagnesemia. Supplemented. 8. Smoking. Counseling provided. Nicotine patch. 9. Deep vein thrombosis (DVT) prophylaxis. Thromboembolic compression stockings (TEDS) and sequentials. Place the patient on heparin drip for portal venous thrombosis suspected, pending further studies. DISPOSITION: Pending further workup. The patient has advanced liver disease. Poor long-term prognosis. considering CT abd with contrast VS,Fishbone, I+O VS, Fishbone, I+O Laboratory Tests 01/20/19 19:59 Calcium Level 7.3 L 01/20/19 23:17 01/21/19 07:10 Calcium Level 7.4 L, Red Blood Count 2.52 L, Mean Corpuscular Volume 106.7 H, Mean Corpuscular Hemoglobin 36.9 H, Mean Corpuscular Hemoglobin Concent 34.6, Red Cell Distribution Width 17.7 H, Aspartate Amino Transf (AST/SGOT) 152 H, Alanine Aminotransferase (ALT/SGPT) 38, Alkaline Phosphatase 165 H, Total Bilirubin 12.3 H, Total Protein 5.9 #L, Albumin 2.3 L Vital Signs Date Time Temp Pulse Resp B/P (MAP) Pulse Ox O2 Delivery O2 Flow Rate FiO2 01/21/19 11:30 96 106/64 01/21/19 10:52 97.6 18 97 01/20/19 15:04 Room Air I&O- Last 24 Hours up to 6 AM 01/21/19 06:00 Intake Total 1619 ml Output Total 100 ml Balance 1519 ml ASHLEY RODAS MD Jan 21, 2019 15:42
[2019-01-21 15:43] LABS: HEMATOCRIT 23.8 % (36.0-47.0); HEMOGLOBIN 8.2 g/dl (12.0-15.5)
[2019-01-21 16:13] LABS: BLOOD UREA NITROGEN 6 MG/DL (7-18); CARBON DIOXIDE LEVEL 25 MEQ/L (21-32); CHLORIDE LEVEL 102 MEQ/L (98-107); CREATININE FOR GFR 0.59 MG/DL (0.55-1.30); GLOMERULAR FILTRATION RATE > 60.0 (>51); GLUCOSE, FASTING 131 MG/DL (70-100); POTASSIUM SERUM 3.5 MEQ/L (3.5-5.1); SODIUM LEVEL 135 MEQ/L (136-145)
--- NOTE | 2019-01-21 18:37 | ECGEPIP ---
Stationary ECG Study [facility] - ED Test Date: 2019-01-20 Pat Name: SLICK BIRD Department: Room: - Gender: F Hand Lacer: : 1970 Requested By: Mauricio Schaeffer Order Number: [id number] Reading MD: Myla Gray Measurements Intervals [place] Rate: 89 P: 19 MO: 144 QRS: 42 QRSD: 110 T: -2 QT: 432 QTc: 528 Interpretive Statements SINUS RHYTHM INCOMPLETE RIGHT BUNDLE BRANCH BLOCK ST DEVIATION AND MODERATE T-WAVE ABNORMALITY, CONSIDER ISCHEMIA DECREASED RATE 07/03/18 Electronically Signed On 01-21-2019 18:37:27 EDT by Myla Gray
[2019-01-21 22:32] LABS: HEMATOCRIT 24.7 % (36.0-47.0); HEMOGLOBIN 8.3 g/dl (12.0-15.5)
[2019-01-22] VITALS: BP 97/52
[2019-01-22 04:00] VITALS: BP 102/57
[2019-01-22 05:41] LABS: HEMATOCRIT 25.4 % (36.0-47.0); HEMOGLOBIN 8.7 g/dl (12.0-15.5); MEAN CORPUSCULAR HEMOGLOBIN 36.4 pg (27.0-33.0); MEAN CORPUSCULAR HGB CONC 34.3 g/dl (32.0-36.5); MEAN CORPUSCULAR VOLUME 106.3 fl (80.0-96.0); PLATELET COUNT, AUTOMATED 194 10^3/uL (150-450); RED BLOOD COUNT 2.39 10^6/uL (4.00-5.40); WHITE BLOOD COUNT 12.4 10^3/uL (4.0-10.0)
[2019-01-22 05:54] LABS: INR 1.8; PROTHROMBIN TIME 21.2 SECONDS (12.1-14.4)
[2019-01-22 05:56] LABS: PARTIAL THROMBOPLASTIN TIME 66.1 SECONDS (25.4-37.6)
[2019-01-22 06:06] LABS: ALBUMIN 2.3 GM/DL (3.2-5.2); ALT/SGPT 42 U/L (12-78); BILIRUBIN,TOTAL 9.5 MG/DL (0.2-1.0); BLOOD UREA NITROGEN 7 MG/DL (7-18); CALCIUM LEVEL 7.6 MG/DL (8.5-10.1); CARBON DIOXIDE LEVEL 26 MEQ/L (21-32); CHLORIDE LEVEL 103 MEQ/L (98-107); CREATININE FOR GFR 0.62 MG/DL (0.55-1.30); GLOMERULAR FILTRATION RATE > 60.0 (>51); GLUCOSE, FASTING 113 MG/DL (70-100); MAGNESIUM LEVEL 2.2 MG/DL (1.8-2.4); POTASSIUM SERUM 3.7 MEQ/L (3.5-5.1); SODIUM LEVEL 136 MEQ/L (136-145); TOTAL PROTEIN 5.8 GM/DL (6.4-8.2)
[2019-01-22 08:00] VITALS: BP 102/53
[2019-01-22] MEDS ORDERED: ISOVUE-370 76% 125ML VIAL (Q9967 PER ML) As Ordered ONE (08:23)
[2019-01-22] MEDS: PANTOPRAZOLE 40MG INJ (PROTONIX) (C9113) IV SCH ×2 (09:12→20:49)
[2019-01-22] MEDS: NICOTINE 21MG/24HR 1 EA TRANSDERMAL TD SCH (09:12)
[2019-01-22] MEDS: MULTIVITAMINS/MINERALS THERAP 1 TAB PO SCH (09:13)
[2019-01-22] MEDS: rOPINIRole 0.25 MG TAB(REQUIP) PO SCH ×3 (09:13→20:49)
[2019-01-22] MEDS: FOLIC ACID 1 MG TAB PO SCH (09:13)
[2019-01-22] MEDS: THIAMINE 100 MG TAB PO SCH (09:13)
[2019-01-22] MEDS: SENOKOT S TAB PO SCH ×2 (09:13→20:49)
[2019-01-22] MEDS: LACTULOSE 20 GM/30 ML SYRUP UD PO SCH ×3 (09:13→20:49)
[2019-01-22] MEDS: predniSONE 50 MG TAB PO SCH (09:13)
--- NOTE | 2019-01-22 09:57 | REP ---
CT ABDOMEN AND PELVIS WITH AND WITHOUT CONTRAST: CT abdomen was performed without IV contrast. CT abdomen and pelvis performed following the intravenous administration of 100 mL of Isovue-370. Sagittal and coronal reconstruction images are performed. Visualized lung bases show mild patchy atelectasis/infiltrate. The liver is enlarged measuring 20-21 cm in length in the midclavicular line. A few scattered cysts are seen in the liver. Largest is in the right lobe and measures approximately 2.3 cm in diameter. There is mild splenomegaly. Adrenals and pancreas are unremarkable. The kidneys demonstrate no hydronephrosis or nephrolithiasis. There is a cyst in the lower pole of the left kidney measuring 1.2 cm in diameter. There is no abdominal aortic aneurysm with mild atherosclerotic calcification. I see no adenopathy. No free air is seen. There is mild free fluid scattered in the abdomen or pelvis. There are multiple varices present in the right upper and left upper quadrants with multiple varices extending inferiorly through the right pericolic gutter. There is recanalization of the umbilical vein. The portal vein opacifies well with contrast with no evidence of thrombosis. There is no hepatic vein thrombosis. No definite bowel wall thickening is seen. There is no appendicitis. I see no pelvic mass. IMPRESSION: Mild patchy atelectasis or infiltrate in each lung base. Mild hepatosplenomegaly. There is recanalization of the umbilical vein with multiple varices in the upper abdomen and right pericolic gutter. There is no evidence of portal vein thrombosis or hepatic vein thrombosis. Mild scattered abdominal and pelvic ascites. Electronically Signed by Shivam Moon MD 01/24/2019 10:21 A
[2019-01-22 10:06] LABS: FOLATE 3.8 NG/ML (>5.4)
[2019-01-22 10:12] LABS: HEPATITIS B SURFACE ANTIGEN NEGATIVE (NEGATIVE)
[2019-01-22 10:40] LABS: HEPATITIS B CORE ANTIBODY IGM NEGATIVE (NEGATIVE)
[2019-01-22 10:42] LABS: HEPATITIS A ANTIBODY IGM NEGATIVE (NEGATIVE)
[2019-01-22 10:49] LABS: HEPATITIS C VIRUS ABY INDEX > 11.0 INDEX (<0.8)
[2019-01-22 11:17] LABS: HEMATOCRIT 25.7 % (36.0-47.0); HEMOGLOBIN 8.7 g/dl (12.0-15.5)
[2019-01-22 12:00] VITALS: BP 100/54
[2019-01-22] MEDS ORDERED: LIDOCAINE 1% MDV 20ML VIAL As Ordered ONE (12:03)
[2019-01-22] MEDS: cefTRIAXone SOD 1 GM in D5W MINI-BAG PLUS 50 ML IV SCH (13:44)
[2019-01-22] MEDS: HEPARIN DRIP 25,000 UNITS in APPROPRIATE DILUENT 1 EA IV SCH (13:52)
[2019-01-22] MEDS ORDERED: SODIUM CHLORIDE 0.9% INJ 10 ML SYR IV PRN (14:00)
[2019-01-22 16:00] VITALS: BP 107/64
[2019-01-22 16:34] LABS: HEMOGLOBIN 8.4 g/dl (12.0-15.5)
[2019-01-22] MEDS: SODIUM CHLORIDE 0.9% INJ 10 ML SYR IV SCH (17:14)
--- NOTE | 2019-01-22 19:12 | CR ---
DATE OF CONSULTATION: 01/22/2019 INPATIENT REQUESTING PHYSICIAN: Hospitalist service. REASON FOR CONSULTATION: Abdominal pain, jaundice, alcoholism. HISTORY OF PRESENT ILLNESS: This is a 48-year-old female with a long history of alcoholism, also a known history of hepatitis C, who presents to the hospital upon urging from her boyfriend stating that she had become more jaundiced over the past 1 to 2 weeks. She otherwise feels well, does not appear to be confused. Denies any significant abdominal pain. She has an extensive and long-standing heavy alcohol consumption history on a daily basis, plus binge drinking. ALLERGIES: No known drug allergies. PAST MEDICAL HISTORY: As per history of present illness. PAST SURGICAL HISTORY: No intraabdominal surgeries. FAMILY HISTORY: Negative for colorectal carcinoma, inflammatory bowel disease or chronic liver disease. SOCIAL HISTORY: As stated above with heavy long standing alcoholism, drinking vodka and beer. HOME MEDICATIONS: She is on no medications. PHYSICAL EXAMINATION: VITAL SIGNS: Temperature 98.1, pulse 92, respiratory rate 69, blood pressure 107/64, pulse oximetry 93% on room air. GENERAL: She is awake, alert and oriented times three. In no apparent distress. She is deeply jaundiced. HEENT: Grossly without abnormalities except for scleral icterus. NECK: Supple. No lymphadenopathy or thyromegaly. CHEST: Clear bilaterally. HEART: Regular rate and rhythm. S1, S2. ABDOMEN: Soft, positive bowel sounds. She is mildly tender in the right upper quadrant area and in the epigastric area. Abdomen is obese. I do not appreciate a definite fluid wave. EXTREMITIES: Negative for edema. RECTAL: Examination deferred as per patient. NEUROLOGIC: There is no asterixis. She is awake and alert. Moves all extremities equally bilaterally. LABORATORY WORK: PT/INR 2.04/1.80, hemoglobin 8.7/8.4, hematocrit 25.7/25, WBC 12.4, BUN 7, creatinine 0.62, total bilirubin 12.3/9.5, AST 152/149, ALT 38/42, alkaline phosphatase 165/179, albumin 2.3. Hepatitis C antibody positive with HCV RNA pending (the patient is status post treatment). Hepatitis A and B negative. ARLENE and ANCA pending. AMA is pending. IMAGIN01/21/2019: Ultrasound with Doppler: Impression: 1. Findings compatible with portal vein thrombosis. 2. Distended gallbladder containing sludge. 3. No cholelithiasis. 4. Large fatty liver. 5. Right and left liver cysts. 6. Small amount of free fluid in the right upper quadrant. 01/21/2019: MRI: Impression: 1. Thrombosis of the main portal vein is thought to be present. Because of motion artifact, a CT scan would be helpful for further evaluation. 2. There is fluid along the margin of the pancreas, gallbladder, liver and spleen. This fluid may be due to ascites and portal vein thrombosis. This can also be seen with cholecystitis and pancreatitis. 3. Prominent sludge in the gallbladder, normal sized common bile duct. 4. A 2.8 cm cyst near the gastric antrum pancreas and can be seen on CT scan of 07/03/2018. A followup CT would be helpful in comparison MRI since the MRI has significant motion artifact. 01/22/2019: CT of the abdomen and pelvis, with and without IV contrast. Impression: 1. Mild patchy atelectasis or infiltrate in each lung base. 2. Mild hepatosplenomegaly. There is recannulation of the umbilical vein with multiple varices in the upper abdomen and right pericolic gutter. There is no evidence of portal vein thrombosis or hepatic vein thrombosis. Mild scattered abdominal and pelvic ascites. IMPRESSION: 1. Alcoholic hepatitis. 2. Cirrhosis of the liver. 3. Portal hypertension. 4. Possible portal vein thrombosis as suggested by ultrasound Duplex, but this is in disagreement with her CT abdomen with IV contrast. RECOMMENDATIONS: 1. I agree with the course of prednisone 20 mg daily for 1 month for alcoholic hepatitis for 1 month, then stop (such short course does not need taper). 2. There is apparently discordant information by ultrasound Doppler and CT IV contrast regarding her portal vein thrombosis. Certainly, her portal vein thrombosis does not appear to be an acute finding, if present, therefore the use of anticoagulation may be questionable for chronic portal vein thrombosis. I will discuss with our radiologist for further recommendation regarding the use of anticoagulant. ADD: I reviewed her scans with Dr Hahn. The US dopper shows the right and left hepatic veins with flow. The portal vein is not dilated and doppler likely unable to penetrate sufficiently deep into liver to get flow characteristics.Comparison to MRI and CT was made which showed portal vein to be patent and normal in caliber. Overall the general verdict is that she does NOT have portal vein thrombosis, and anticoagulation not necessary. (please note that anticoagulation for chronic portal vein thrombosis is of unproven value anyways). Rec hold off on anticoagulation MTDD
--- NOTE | 2019-01-22 19:31 | IPNPDOC ---
Text Note Date of Service The patient was seen on 01/22/19. NOTE Reported restless leg improved. Denied chest pain, sob, abd pain, n/v GENERAL: The patient is alert, comfortable, jaundiced. HEENT: Normocephalic, atraumatic. Sclera icterus, jaundice. PULMONARY: Bilaterally clear. CARDIAC: Regular. S1, S2. ABDOMEN: Soft, nontender. EXTREMITIES: No clubbing, cyanosis or edema. ASSESSMENT AND PLAN: This is a 48-year-old female patient with underlying medical history of hepatitis C, as well as fatty liver, alcoholism/alcohol abu se, bipolar disorder, anxiety disorder, compression fracture of T12, who presented with jaundice. 1. Jaundice secondary to cirrhosis with liver failure, likely secondary to alcohol. hepatitis profile, hepatitis C PCR neg. The patient stated that she was treated for hepatitis C by Dr. Nelson. We will also get ARLENE, ANCA, C-ANCA, P-ANCA, anti cardiolipin, iron binding, ceruloplasmin, Anti mitochondrial . Alcohol level negative. Acetaminophen level negative. IV fluids given. The patient has a model for end-stage liver disease (MELD) score of 26 with 19.6% mortality in 3 months. Discriminate function of 48.5. Alcohol cessation recommended. MRI of the liver. Ultrasound of the liver appreciated. 2. Possible hepatoportal thrombosis. Ultrasound appreciated. MRI appreciated, CT abd showed discripensy. as well as MRI of the liver. Consented for transfusion. Monitor hemoglobin and hematocrit. Followup laboratories, as mentioned above. consulted GI 3. Alcoholic hepatitis. Prednisone has been started. for 1month 4. Alcohol abuse. Monitor for withdrawal. Serax as needed. Thiamine, folate and multivitamin. Supportive care. 5. Advanced cirrhosis with jaundice, hyperbilirubinemia. Workup has been ordered, including laboratories, MRI of the liver, ultrasound of the liver with Doppler. Followup INR. Followup liver functions and bilirubin. GI consult. Rocephin for SBE prophylaxis. Prednisone given discriminate function of 48.5 for alcoholic hepatitis. 6. Anemia. The patient has significant anemia compared to previous. History does not support manifest of esophageal varices. The patient did have esophagogastroduodenoscopy (EGD) 2 years ago. Hemoglobin and hematocrit remain relatively stable. Consented for transfusion. SBE prophylaxis, Rocephin has been started. Anemia workup has been sent. 7. Hypokalemia and hypomagnesemia. Supplemented. 8. Smoking. Counseling provided. Nicotine patch. 9. Deep vein thrombosis (DVT) prophylaxis. Thromboembolic compression stockings (TEDS) and sequentials. Place the patient on heparin drip for portal venous thrombosis suspected, pending further studies. DISPOSITION: Pending further workup. The patient has advanced liver disease. Poor long-term prognosis. GI rec VS,Fishbone, I+O VS, Fishbone, I+O Laboratory Tests 01/21/19 22:18 01/22/19 05:18 Red Blood Count 2.39 L, Mean Corpuscular Volume 106.3 H, Mean Corpuscular Hemoglobin 36.4 H, Mean Corpuscular Hemoglobin Concent 34.3, Red Cell Distribution Width 18.6 H, Calcium Level 7.6 L, Aspartate Amino Transf (AST/SGOT) 149 H, Alanine Aminotransferase (ALT/SGPT) 42, Alkaline Phosphatase 179 H, Total Bilirubin 9.5 H, Total Protein 5.8 L, Albumin 2.3 L 01/22/19 09:59 01/22/19 16:02 Vital Signs Date Time Temp Pulse Resp B/P (MAP) Pulse Ox O2 Delivery O2 Flow Rate FiO2 01/22/19 16:00 69 107/64 01/22/19 16:00 98.1 20 93 01/20/19 15:04 Room Air I&O- Last 24 Hours up to 6 AM 01/22/19 06:00 Intake Total 802.5 ml Output Total 400 ml Balance 402.5 ml ASHLEY RODAS MD Jan 22, 2019 19:31
[2019-01-22 20:00] VITALS: BP 111/61
[2019-01-22 22:09] LABS: HEMATOCRIT 24.2 % (36.0-47.0); HEMOGLOBIN 8.2 g/dl (12.0-15.5)
[2019-01-23] VITALS: BP 103/59
[2019-01-23 04:00] VITALS: BP_SYST 103; BP_SYST 117; BP_DIAS 59; BP_DIAS 61
[2019-01-23] MEDS: SODIUM CHLORIDE 0.9% INJ 10 ML SYR IV SCH ×2 (05:15→17:51)
[2019-01-23 05:32] LABS: HEMATOCRIT 24.6 % (36.0-47.0); HEMOGLOBIN 8.3 g/dl (12.0-15.5); MEAN CORPUSCULAR HEMOGLOBIN 37.1 pg (27.0-33.0); MEAN CORPUSCULAR HGB CONC 33.7 g/dl (32.0-36.5); MEAN CORPUSCULAR VOLUME 109.8 fl (80.0-96.0); PLATELET COUNT, AUTOMATED 175 10^3/uL (150-450); RED BLOOD COUNT 2.24 10^6/uL (4.00-5.40); WHITE BLOOD COUNT 9.8 10^3/uL (4.0-10.0)
[2019-01-23 05:46] LABS: INR 1.59; PROTHROMBIN TIME 19.2 SECONDS (12.1-14.4)
[2019-01-23 06:10] LABS: ALBUMIN 2.1 GM/DL (3.2-5.2); ALT/SGPT 42 U/L (12-78); BILIRUBIN,TOTAL 7.1 MG/DL (0.2-1.0); BLOOD UREA NITROGEN 8 MG/DL (7-18); CALCIUM LEVEL 7.6 MG/DL (8.5-10.1); CARBON DIOXIDE LEVEL 27 MEQ/L (21-32); CHLORIDE LEVEL 104 MEQ/L (98-107); CREATININE FOR GFR 0.54 MG/DL (0.55-1.30); GLOMERULAR FILTRATION RATE > 60.0 (>51); GLUCOSE, FASTING 102 MG/DL (70-100); PERCENT SATURATION 51.8 % (13.2-45.0); POTASSIUM SERUM 3.6 MEQ/L (3.5-5.1); SODIUM LEVEL 137 MEQ/L (136-145); TOTAL PROTEIN 4.9 GM/DL (6.4-8.2)
[2019-01-23 08:00] VITALS: BP 134/71
[2019-01-23] MEDS: rOPINIRole 0.25 MG TAB(REQUIP) PO SCH ×3 (08:51→21:24)
[2019-01-23] MEDS: PANTOPRAZOLE 40MG INJ (PROTONIX) (C9113) IV SCH ×2 (08:51→21:23)
[2019-01-23] MEDS: SENOKOT S TAB PO SCH ×2 (08:52→21:24)
[2019-01-23] MEDS: MULTIVITAMINS/MINERALS THERAP 1 TAB PO SCH (08:52)
[2019-01-23] MEDS: NICOTINE 21MG/24HR 1 EA TRANSDERMAL TD SCH (08:52)
[2019-01-23] MEDS: LACTULOSE 20 GM/30 ML SYRUP UD PO SCH ×3 (08:52→21:23)
[2019-01-23] MEDS: FOLIC ACID 1 MG TAB PO SCH (08:52)
[2019-01-23] MEDS: THIAMINE 100 MG TAB PO SCH (08:52)
[2019-01-23] MEDS: predniSONE 20 MG TAB PO SCH (08:53)
--- NOTE | 2019-01-23 11:59 | REP ---
PICC LINE INSERTION UNDER ULTRASOUND GUIDANCE: REASON FOR EXAM: Poor IV access. PROCEDURE: PICC line insertion with ultrasound guidance. This procedure was performed under the personal supervision of Dr. Moon. The risks and benefits of the procedure were explained to the patient and informed consent was obtained. The right basilic vein was localized using ultrasound guidance. The skin was prepped and draped in the usual sterile fashion. 4 mL of 1% lidocaine was used as a local anesthetic. Using ultrasound guidance the right basilic vein was cannulated and a 0.018 guidewire was inserted and advanced to the SVC using fluoroscopic guidance. The needle was removed and a 5.5 Italian dilator and a Peel-Away sheath was inserted over the guidewire. A 5.5 Italian double lumen catheter was cut to the length of 37 cm with the tip ending in the SVC. The Peel-Away sheath was removed and the catheter was flushed with heparinized saline as per hospital protocol. The catheter was affixed to the skin and a sterile dressing was applied. The patient tolerated the procedure well and there were no immediate complications. 0.7 minutes of fluoro time was utilized for this procedure. Reviewed by YOLANDA Munoz 01/23/2019 12:37 P Edited and Electronically Signed by Shivam Moon MD 01/23/2019 09:11 P
[2019-01-23 12:00] VITALS: BP 112/68
[2019-01-23] MEDS: cefTRIAXone SOD 1 GM in D5W MINI-BAG PLUS 50 ML IV SCH (12:42)
[2019-01-23 16:00] VITALS: BP 106/64
--- NOTE | 2019-01-23 19:29 | IPNPDOC ---
Text Note Date of Service The patient was seen on 01/23/19. NOTE Reported restless leg improved. Denied chest pain, sob, abd pain, n/v GENERAL: The patient is alert, comfortable, jaundiced. HEENT: Normocephalic, atraumatic. Sclera icterus, jaundice. PULMONARY: Bilaterally clear. CARDIAC: Regular. S1, S2. ABDOMEN: Soft, nontender. EXTREMITIES: No clubbing, cyanosis or edema. ASSESSMENT AND PLAN: This is a 48-year-old female patient with underlying medical history of hepatitis C, as well as fatty liver, alcoholism/alcohol abu se, bipolar disorder, anxiety disorder, compression fracture of T12, who presented with jaundice. 1. Jaundice secondary to cirrhosis with liver failure, likely secondary to alcohol. Alcoholic hepatitis. hepatitis profile, hepatitis C PCR neg. The patient stated that she was treated for hepatitis C by Dr. Nelson. We will also get ARLENE, ANCA, C-ANCA, P-ANCA, anti cardiolipin, iron binding, ceruloplasmin, Anti mitochondrial . Alcohol level negative. Acetaminophen level negative. IV fluids given. The patient has a model for end-stage liver disease (MELD) score of 26 with 19.6% mortality in 3 months. Discriminate function of 48.5. Alcohol cessation recommended. MRI of the liver. Ultrasound of the liver appreciated. CT abd appreciated. lactulose, prednisone 2. r/o hepatoportal thrombosis. Ultrasound appreciated. MRI appreciated, CT abd appreciated. Dr hebert discussed the case with Dr Hahn, agree, US and MRI false positive. heparin Stopped, GI consult appreciated 3. Alcoholic hepatitis. Prednisone has been started. for 1month 4. Alcohol abuse. Monitor for withdrawal. Serax as needed. Thiamine, folate and multivitamin. Supportive care. 5. Advanced cirrhosis with jaundice, hyperbilirubinemia. Workup has been ordered, including laboratories, MRI of the liver, ultrasound of the liver with Doppler. Followup INR. Followup liver functions and bilirubin. GI consult. Rocephin for SBE prophylaxis. Prednisone given discriminate function of 48.5 for alcoholic hepatitis. 6. Anemia. The patient has significant anemia compared to previous. History does not support manifest of esophageal varices. The patient did have esophagogastroduodenoscopy (EGD) 2 years ago. Hemoglobin and hematocrit remain relatively stable. Consented for transfusion. SBE prophylaxis, Rocephin has been started. Anemia workup has been sent. 7. Hypokalemia and hypomagnesemia. Supplemented. 8. Smoking. Counseling provided. Nicotine patch. 9. Deep vein thrombosis (DVT) prophylaxis. Heparin SQ DISPOSITION: DC pending PT Poor long-term prognosis. GI rec VS,Fishbone, I+O VS, Fishbone, I+O Laboratory Tests 01/22/19 22:03 01/23/19 05:20 Red Blood Count 2.24 L, Mean Corpuscular Volume 109.8 H, Mean Corpuscular He moglobin 37.1 H, Mean Corpuscular Hemoglobin Concent 33.7, Red Cell Distribution Width 19.3 H, Calcium Level 7.6 L, Aspartate Amino Transf (AST/SGOT) 128 H, Alanine Aminotransferase (ALT/SGPT) 42, Alkaline Phosphatase 187 H, Total Bilirubin 7.1 H, Total Protein 4.9 L, Albumin 2.1 L Vital Signs Date Time Temp Pulse Resp B/P (MAP) Pulse Ox O2 Delivery O2 Flow Rate FiO2 01/23/19 16:00 97.6 88 18 106/64 (78) 01/23/19 12:00 94 01/20/19 15:04 Room Air I&O- Last 24 Hours up to 6 AM 01/23/19 06:00 Intake Total 1315 ml Output Total 0 ml Balance 1315 ml ASHLEY RODAS MD Jan 23, 2019 19:29
[2019-01-23 20:00] VITALS: BP 118/66
[2019-01-23] MEDS: HEPARIN SOD (PORCINE) 5000 UNITS/ML VIAL SQ SCH ×2 (21:00→21:24)
[2019-01-24] VITALS: BP 117/72
[2019-01-24 00:06] LABS: CARDIOLIPIN IGA ANTIBODY <9 APL U/mL (0-11); CARDIOLIPIN IGG ANTIBODY <9 GPL U/mL (0-14); CARDIOLIPIN IGM ANTIBODY 10 MPL U/mL (0-12)
[2019-01-24 00:19] VITALS: BP 117/72
[2019-01-24 04:00] VITALS: BP 118/77
[2019-01-24] MEDS: SODIUM CHLORIDE 0.9% INJ 10 ML SYR IV SCH (04:06)
[2019-01-24 04:14] LABS: HEMATOCRIT 26.5 % (36.0-47.0); HEMOGLOBIN 8.8 g/dl (12.0-15.5); MEAN CORPUSCULAR HEMOGLOBIN 36.8 pg (27.0-33.0); MEAN CORPUSCULAR HGB CONC 33.2 g/dl (32.0-36.5); MEAN CORPUSCULAR VOLUME 110.9 fl (80.0-96.0); PLATELET COUNT, AUTOMATED 177 10^3/uL (150-450); RED BLOOD COUNT 2.39 10^6/uL (4.00-5.40); WHITE BLOOD COUNT 10.4 10^3/uL (4.0-10.0)
[2019-01-24 04:30] LABS: INR 1.58; PROTHROMBIN TIME 19.1 SECONDS (12.1-14.4)
[2019-01-24 04:31] LABS: PARTIAL THROMBOPLASTIN TIME 44.5 SECONDS (25.4-37.6)
[2019-01-24 04:44] LABS: ALT/SGPT 46 U/L (12-78); BILIRUBIN,TOTAL 6.3 MG/DL (0.2-1.0); BLOOD UREA NITROGEN 10 MG/DL (7-18); CALCIUM LEVEL 7.6 MG/DL (8.5-10.1); CARBON DIOXIDE LEVEL 27 MEQ/L (21-32); CHLORIDE LEVEL 104 MEQ/L (98-107); CREATININE FOR GFR 0.56 MG/DL (0.55-1.30); GLOMERULAR FILTRATION RATE > 60.0 (>51); GLUCOSE, FASTING 113 MG/DL (70-100); MAGNESIUM LEVEL 1.9 MG/DL (1.8-2.4); SODIUM LEVEL 136 MEQ/L (136-145); TOTAL PROTEIN 4.9 GM/DL (6.4-8.2)
[2019-01-24 08:00] VITALS: BP 115/69
[2019-01-24] MEDS: LACTULOSE 20 GM/30 ML SYRUP UD PO SCH (09:00)
[2019-01-24] MEDS: PANTOPRAZOLE 40MG INJ (PROTONIX) (C9113) IV SCH (09:00)
[2019-01-24] MEDS: HEPARIN SOD (PORCINE) 5000 UNITS/ML VIAL SQ SCH (09:00)
[2019-01-24] MEDS: SENOKOT S TAB PO SCH (09:00)
[2019-01-24] MEDS: rOPINIRole 0.25 MG TAB(REQUIP) PO SCH (10:12)
[2019-01-24] MEDS: predniSONE 20 MG TAB PO SCH (10:12)
[2019-01-24] MEDS: THIAMINE 100 MG TAB PO SCH (10:12)
[2019-01-24] MEDS: FOLIC ACID 1 MG TAB PO SCH (10:12)
[2019-01-24] MEDS: NICOTINE 21MG/24HR 1 EA TRANSDERMAL TD SCH (10:13)
[2019-01-24] MEDS: MULTIVITAMINS/MINERALS THERAP 1 TAB PO SCH (10:13)
[2019-01-24 12:00] VITALS: BP 100/54
[2019-01-24] MEDS ORDERED: VITMTA PO (14:09)
[2019-01-24] MEDS ORDERED: FOLI1TAB11 PO (14:09)
[2019-01-24] MEDS ORDERED: PRED20TA PO (14:09)
[2019-01-24] MEDS ORDERED: NICO21PAT TD (14:09)
[2019-01-24] MEDS ORDERED: THIA100TA PO (14:09)
[2019-01-24] MEDS ORDERED: PROT1TAB2 PO (14:09)
[2019-01-24] MEDS ORDERED: REQU0.5T PO (14:39)
[2019-01-24 15:14] LABS: HEPATITIS C QUANTITATION HCV Not Detected IU/mL (.)
[2019-01-24 15:14] LABS: CERULOPLASMIN 21.4 mg/dL (19.0-39.0)
[2019-01-25 00:08] LABS: ANCA-ATYPICAL <1:20 titer (Neg:<1:20); ANTINUCLEAR ANTIBODIES DIRECT Negative (Negative); CYTOPLASMIC NEUTROP AB ANCA-C <1:20 titer (Neg:<1:20); PERINUCLEAR AB ANCA-P <1:20 titer (Neg:<1:20)
[2019-01-25 00:08] LABS: ANTI-MITOCHONDRIAL ANTIBODY <20.0 Units (0.0-20.0)
--- NOTE | 2019-01-25 01:46 | DSES ---
DATE OF ADMISSION: 01/20/2019 DATE OF DISCHARGE: 01/24/2019 PRIMARY CARE PROVIDER: Lyn Puente CALL CENTER AGENT: Dr. Dieudonne Figueroa FINAL DIAGNOSES: 1. Jaundice secondary to cirrhosis. 2. Alcoholic hepatitis. 3. Decompensated cirrhosis. 4. Rule out hepatoportal thrombosis. 5. Alcohol abuse. 6. Hyperbilirubinemia. 7. Anemia. 8. Hypokalemia. 9. Hypomagnesemia. 10. Smoking. HISTORY OF PRESENT ILLNESS: This is a 48-year-old female patient with underlying medical history of hepatitis C treated by Dr. Von Nelson, alcoholism, fatty liver with liver cyst biopsy shows benign, chronic anemia, anxiety, agoraphobia, T12 compression fracture with fall, uterine prolapse, bipolar disorder, impulse control issue, anxiety disorder, restless leg was sent into the hospital when patient was seen by primary care provider with jaundice. The patient's boyfriend stated that jaundice has been noted for the past week. The patient reported mild constipation, mild left lower quadrant abdominal discomfort. No nausea. No vomiting. The patient is asymptomatic. The patient has reported minimal symptoms. Denies any chest pain, fevers, chills. The patient drinks about 10 drinks. The patient is a binge drinker. She drinks ten shots of vodka a week prior to admission and also 20 ounces of beer. The patient stated that she used to drink a lot more than this and smokes one pack per day. HOSPITAL COURSE: The patient admitted to the hospital. Found to be hyperbilirubinemic, hypokalemia with coagulopathy due to cirrhosis. Fecal occult is negative. Ultrasound liver initially suggested possible portal vein thrombosis. MRI of the liver and magnetic resonance cholangiopancreatography (MRCP) appreciated suggestive of portal vein thrombosis but a poor study. Heparin drip was started. Patient with MELD score 26 with 19.6% mortality in three months and discriminate function of 48.5. Prednisone was started. Initially given Rocephin for a spontaneous bacterial peritonitis prophylaxis. The patient's liver function including bilirubin and INR was monitored. Hemoglobin and hematocrit (H and H) was monitored closely. Serax as needed, thiamine, folate, and multivitamin. Counseling was provided as well as smoking cessation counseling was provided. Nicotine patch was provided. Gastroenterology was consulted. A repeat study of CT of the abdomen with and without contrast was done showing negative for hepatic portal vein thrombosis. The case was discussed with Dr. Figueroa and Dr. Hahn, both of them which agreed that initial ultrasound and MRI is a false positive subsequently anticoagulation was discontinued. Currently the patient has resolving jaundice, resolving hyperbilirubinemia with recovering liver function. Further studies for hepatitis and cirrhosis were done. Serology for hepatitis C RNA has been negative. Further study including antinuclear antibody (ARLENE), antineutrophil cytoplasmic antibodies (ANCA), antimitochondrial, anti-smooth muscle deoxyribonucleic acid, anticardiolipin has been sent. Pending result. Currently patient tolerating oral with improvement of coagulopathy, improvement of liver function, ready to be discharged for further care as outpatient. Counseling was provided. Risks and benefits explained. VITAL SIGNS: Temperature 97.9, pulse 92, respirations 20, blood pressure 100/54, pulse oximetry 99% on room air. LABORATORIES: White blood cell (WBC) 10.4, hemoglobin and hematocrit (H and H) 8.8/26.5, platelets 177. Chemistry: Sodium 136, potassium 4, chloride 104, bicarbonate 27, BUN 10, creatinine 0.56. PHYSICAL EXAMINATION: GENERAL: The patient is alert, comfortable, in no acute distress. HEENT: Normocephalic, atraumatic. Jaundice has improved. Scleral icterus. PULMONARY: Bilaterally clear. CARDIAC: Regular. S1, S2. ABDOMEN: Soft, nontender, EXTREMITIES: No clubbing, cyanosis or edema. DISCHARGE MEDICATIONS: - folic acid 1 mg by mouth daily - multivitamin 1 tablet by mouth daily - nicotine patch 21 mg transdermal daily - Protonix 40 mg by mouth daily - prednisone 20 mg by mouth daily for one month - Requip 0.5 mg by mouth three times a day - thiamine 100 mg by mouth daily DISCHARGE INSTRUCTIONS: Avoid smoking. Avoid alcoholic beverages. Avoid Tylenol. Please see primary care provider in 7 days. Check liver function, INR, complete blood count (CBC), basic metabolic panel (BMP) with primary care provider. Return if symptoms worsen. Please see Dr. Figueroa in two weeks, oxygen therapy technician for further workup and followup workup for cirrhosis and alcoholic hepatitis. Return to the hospital if symptoms worsen.
== END 2019-01-24 16:09 | disposition home or self-care (01) | DRG 434 ==
LOC: M ED 06:33 → M ED INP 12:26 → M PCU 15:15
PROVIDERS: ADMIT Hospitalist; ATTEND Hospitalist
PROC: 02HV33Z Insertion of Infusion Device into Superior Vena Cava, Percutaneous Approach (ICD-10-PCS; principal; 2019-01-22)
DX: K70.31 Alcoholic cirrhosis of liver with ascites (principal); K70.11 Alcoholic hepatitis with ascites; D64.9 Anemia, unspecified; F41.9 Anxiety disorder, unspecified; F40.00 Agoraphobia, unspecified; F31.9 Bipolar disorder, unspecified; K59.00 Constipation, unspecified; F17.210 Nicotine dependence, cigarettes, uncomplicated; K76.89 Other specified diseases of liver; E87.6 Hypokalemia; F10.20 Alcohol dependence, uncomplicated; G25.81 Restless legs syndrome; K76.0 Fatty (change of) liver, not elsewhere classified; E83.42 Hypomagnesemia; Z91.14 Patient's other noncompliance with medication regimen

== ENCOUNTER 2019-01-31 15:02 | Inpatient (IN) | payer MEDICARE, MEDICAID ==
[~2019-01-31] VITALS: Ht 165.1 cm; Wt 91.1 kg
[~2019-01-31 15:02] MED LIST changes: +FOLI1TAB11 PO; +NICO21PAT TD; +PRED20TA PO; +PROT1TAB2 PO; +REQU0.5T PO; +THIA100TA PO; +VITMTA PO
[2019-01-31 16:08] LABS: HEMATOCRIT 29.4 % (36.0-47.0); HEMOGLOBIN 9.7 g/dl (12.0-15.5); PLATELET COUNT, AUTOMATED 125 10^3/uL (150-450); RED BLOOD COUNT 2.55 10^6/uL (4.00-5.40); WHITE BLOOD COUNT 17.3 10^3/uL (4.0-10.0)
[2019-01-31 16:27] LABS: ALBUMIN 2.5 GM/DL (3.2-5.2); ALT/SGPT 67 U/L (12-78); BILIRUBIN,DIRECT 4.6 MG/DL (0.0-0.2); BILIRUBIN,TOTAL 6.5 MG/DL (0.2-1.0); BLOOD UREA NITROGEN 13 MG/DL (7-18); CALCIUM LEVEL 8.5 MG/DL (8.5-10.1); CARBON DIOXIDE LEVEL 24 MEQ/L (21-32); CHLORIDE LEVEL 109 MEQ/L (98-107); CREATININE FOR GFR 0.74 MG/DL (0.55-1.30); GLOMERULAR FILTRATION RATE > 60.0 (>51); GLUCOSE, FASTING 114 MG/DL (70-100); LIPASE 230 U/L (73-393); POTASSIUM SERUM 3.9 MEQ/L (3.5-5.1); SODIUM LEVEL 142 MEQ/L (136-145); TOTAL PROTEIN 5.7 GM/DL (6.4-8.2)
[2019-01-31] MEDS ORDERED: MORPHINE 4 MG/ML 1ML VIAL/SYRINGE (J2270) IV ONE (16:30)
[2019-01-31 16:41] LABS: MEAN CORPUSCULAR VOLUME 115.3 fl (80.0-96.0)
[2019-01-31 17:25] LABS: ANISOCYTOSIS 2+; ATYPICAL LYMPH 2 % (0-5); LYMPHOCYTES 12 % (16-52); MONOCYTES 3 % (0-8); NEUTROPHILS 78 % (35-75); OVALOCYTES 2+; POIKILOCYTOSIS 2+; TEAR DROP CELLS 1+
[2019-01-31 17:26] LABS: PLATELET ESTIMATE DECREASED (NORMAL); POLYCHROMASIA 1+
[2019-01-31 17:27] LABS: INR 1.54; PROTHROMBIN TIME 18.7 SECONDS (12.1-14.4)
--- NOTE | 2019-01-31 17:44 | REP ---
Clinical: Shortness of breath. Technique: PA and lateral. Comparison: 09/25/2015. Findings: Mild pulmonary vascular congestion along with left lower lobe atelectasis cannot be excluded. No effusion. No pneumothorax. Skeletal structures intact. Impression: Cannot exclude mild pulmonary vascular congestion with mild basilar atelectasis (left greater than right). Electronically Signed by Binu Man MD 01/31/2019 05:36 P
[2019-01-31] MEDS ORDERED: ROPI0.5T PO (18:07)
[2019-01-31] MEDS ORDERED: PANT-23 PO (18:07)
--- NOTE | 2019-01-31 19:58 | HPE ---
DATE OF ADMISSION: 01/31/2019 48-year-old female with a past medical history of liver cirrhosis secondary to chronic alcoholism, hepatitis C, bipolar disorder, chronic active tobacco abuser, who presents to the emergency room from Dr. Mancilla's office for abdominal paracentesis. The patient has been complaining of increased abdominal girth and shortness of breath when lying flat for over 2 weeks now. She has never been tapped before, but she has not a candidate for liver transplant. Unfortunately, the interventional radiology team has left so the patient will be admitted for therapeutic paracentesis in the morning. The patient denies any chest pain or shortness of breath at this time. PAST MEDICAL HISTORY: Again, past medical history of: 1. Liver cirrhosis secondary to hepatitis C and alcoholism. 2. History of chronic anemia. 3. Agoraphobia. 4. Bipolar disorder. PAST SURGICAL HISTORY: 1. Tubal ligation. 2. Carpal tunnel release in the right hand. ALLERGIES: She has no known drug allergies. FAMILY HISTORY: Noncontributory. SOCIAL HISTORY: The patient still smokes approximately a pack a day for many years. She does still occasionally binge drink and hard liquor is her main choice of alcohol. Denies any illicit drugs. MEDICATIONS: She takes at home: - folic acid 1 mg by mouth daily - multivitamin one tablet by mouth daily - nicotine transdermal patch 21 mg daily - pantoprazole 40 mg by mouth daily - prednisone 20 mg by mouth daily - ropinirole 0.5 mg by mouth three times a day - thiamine 100 mg by mouth daily REVIEW OF SYSTEMS: Negative for all ten major systems except what is mentioned in the history of present illness. PHYSICAL EXAMINATION: VITAL SIGNS: Blood pressure 126/62, heart rate is 111 and regular, respiratory rate 22, temperature 98.1, oxygen saturation 97% on room air. Head is atraumatic, normocephalic. Neck is supple with no jugular venous distention (JVD). Lungs clear to auscultation. S1, S2 audible. No murmurs appreciated. Abdomen is distended. Positive bowel sounds. No pedal edema. Skin is intact. Neurologic examination, the patient is awake, alert and oriented times three. LABORATORIES: WBC 17.3, hemoglobin 9.7, hematocrit 29.4, platelets 125,000. Sodium 142, potassium 3.9, chloride 109, CO2 of 24, BUN 13, creatinine 0.74, glucose 114, lipase 230. Urinalysis is not suggestive of a urinary tract infection (UTI). INR is 1.54. Chest x-ray is read as pulmonary vascular congestion, but I do not believe in that. When I looked at it, it looks like clear lungs and has good costophrenic angles. No signs of pleural effusion. IMPRESSION: 1. Ascites. PLAN: The patient is to be admitted to the medical/surgical floor. We will have interventional radiology do a therapeutic paracentesis in the morning and discharge her in the morning if uncomplicated. I will continue her preadmission medications and continue her care on the medical/surgical floor.
[2019-01-31] MEDS: rOPINIRole 0.25 MG TAB(REQUIP) PO SCH (22:25)
[2019-02-01] MEDS ORDERED: LORazepam 2 MG TAB PO PRN (00:15)
[2019-02-01 01:00] VITALS: BP 116/59
[2019-02-01 06:00] VITALS: BP 124/65
[2019-02-01 08:00] VITALS: BP 124/65
[2019-02-01] MEDS: rOPINIRole 0.25 MG TAB(REQUIP) PO SCH ×3 (09:26→20:01)
[2019-02-01] MEDS: NICOTINE 21MG/24HR 1 EA TRANSDERMAL TD SCH (09:26)
[2019-02-01] MEDS: PANTOPRAZOLE 40MG TAB (PROTONIX) PO SCH (09:27)
[2019-02-01] MEDS: FOLIC ACID 1 MG TAB PO SCH (09:27)
[2019-02-01] MEDS: THIAMINE 100 MG TAB PO SCH (09:27)
[2019-02-01] MEDS: ANUSOL HC CREAM 30GM TOP SCH ×3 (09:27→20:03)
[2019-02-01] MEDS: MULTIVITAMINS/MINERALS THERAP 1 TAB PO SCH (09:27)
[2019-02-01] MEDS: predniSONE 20 MG TAB PO SCH (09:27)
[2019-02-01 14:00] VITALS: BP 137/79
--- NOTE | 2019-02-01 14:52 | REP ---
Clinical: Evaluate for ascites. Technique: Moon scale ultrasound examination using curved array transducer. Findings: Survey sonographic images through the four quadrants of the abdomen and pelvis demonstrate no discernible ascites. Impression: No ascites noted. Electronically Signed by Binu Man MD 02/01/2019 02:43 P
[2019-02-01 15:03] VITALS: BP 137/79
[2019-02-01] MEDS: FUROSEMIDE 40 MG/4 ML VIAL (J1940) IV SCH (16:18)
[2019-02-01] MEDS ORDERED: KETOROLAC 30 MG/ML VIAL (J1885) IV ONE (17:00)
[2019-02-01 22:00] VITALS: BP 108/54
--- NOTE | 2019-02-01 22:58 | IPNPDOC ---
Text Note Date of Service The patient was seen on 02/01/19. NOTE Subjective: Complains of abdominal bloating and genralized soreness, also complains of leg swelling. No fever or chills, no nausea or vomiting or diarreha. PHYSICAL EXAMINATION: VITAL SIGNS: as below HEENT: Head is atraumatic, normocephalic. Moist mucous membranes, jaundice present. Neck is supple Lungs clear to auscultation. Heart: S1, S2 regular. No murmurs appreciated. Abdomen is distended. Positive bowel sounds. Extremities: bipedal edema Skin is intact. Neurologic examination, the patient is awake, alert and oriented times three. Labs and Radiology: Reviewed Assessment and Plan: 48-year-old female with a past medical history of liver cirrhosis secondary to chronic alcoholism, hepatitis C treated by Dr Nelson, bipolar disorder, chronic active tobacco abuser,chronic anemia, anxiety, agoraphobia, T12 compression fracture with fall, uterine prolapse, impulse control issue, anxiety disorder, restless leg who presents to the emergency room from Dr. Mancilla's office for possible abdominal paracentesis. The patient has been complaining of increased abdominal girth and shortness of breath when lying flat for over 2 weeks now. She has never been tapped before. US this am showed minimal ascitis not enough to be tapped. Alcoholic hepatitis continue prednisone till February 20. continue thiamine and folate. Alcoholic cirrhosis with features of anasarca start on lasix bid. will also add spironolactone. 2 gm sodium diet, fluid restriction US did not show any significant ascitis for tapping. Internal hemorrhoids complains of severe pain and some bleeding will give anusol h cream will give 1 dose of toradol. H/o Gastritis continue pantoprazole. Bipolar disoreder, anxiety disorder, impulse control disorder not on any meds follow up PMD. restless legs continue ropinirole DVT prophylaxis has been ordered. VS,Fishbone, I+O VS, Fishbone, I+O Vital Signs Date Time Temp Pulse Resp B/P (MAP) Pulse Ox O2 Delivery O2 Flow Rate FiO2 02/01/19 22:00 98.3 87 18 108/54 (72) 95 02/01/19 00:29 Room Air I&O- Last 24 Hours up to 6 AM 02/01/19 06:00 Output Total 0 ml Balance 0 ml ANNE-MARIE DAVIS MD Feb 01, 2019 22:58
[2019-02-02 06:00] VITALS: BP 110/59
[2019-02-02 08:00] VITALS: BP 110/59
[2019-02-02] MEDS: rOPINIRole 0.25 MG TAB(REQUIP) PO SCH ×3 (09:38→20:37)
[2019-02-02] MEDS: predniSONE 20 MG TAB PO SCH (09:38)
[2019-02-02] MEDS: FOLIC ACID 1 MG TAB PO SCH (09:38)
[2019-02-02] MEDS: PANTOPRAZOLE 40MG TAB (PROTONIX) PO SCH (09:38)
[2019-02-02] MEDS: THIAMINE 100 MG TAB PO SCH (09:38)
[2019-02-02] MEDS: MULTIVITAMINS/MINERALS THERAP 1 TAB PO SCH (09:39)
[2019-02-02] MEDS: FUROSEMIDE 40 MG/4 ML VIAL (J1940) IV SCH ×2 (09:39→16:26)
[2019-02-02] MEDS: NICOTINE 21MG/24HR 1 EA TRANSDERMAL TD SCH (09:40)
[2019-02-02] MEDS: ANUSOL HC CREAM 30GM TOP SCH ×3 (09:40→20:38)
[2019-02-02] MEDS: SPIRONOLACTONE 25 MG TAB PO SCH (09:42)
[2019-02-02 10:48] LABS: BASO % 0.2 % (0.0-1.0); EOS # 0.1 10^3/uL (0.0-0.50); EOS % 1.1 % (0.0-3.0); HEMATOCRIT 28.6 % (36.0-47.0); HEMOGLOBIN 9.1 g/dl (12.0-15.5); LYMPH % 15.5 % (24.0-44.0); MEAN CORPUSCULAR HEMOGLOBIN 36.4 pg (27.0-33.0); MEAN CORPUSCULAR HGB CONC 31.8 g/dl (32.0-36.5); MONO # 0.8 10^3/uL (0.0-0.8); MONO % 6.3 % (0.0-5.0); NEUTROPHILS # 10.1 10^3/uL (1.8-7.7); NEUTROPHILS % 76.4 % (36.0-66.0); PLATELET COUNT, AUTOMATED 117 10^3/uL (150-450); WHITE BLOOD COUNT 13.2 10^3/uL (4.0-10.0)
[2019-02-02 10:56] LABS: MEAN CORPUSCULAR VOLUME 114.4 fl (80.0-96.0)
[2019-02-02 11:13] LABS: ALBUMIN 2.5 GM/DL (3.2-5.2); ALT/SGPT 67 U/L (12-78); BILIRUBIN,TOTAL 6.2 MG/DL (0.2-1.0); BLOOD UREA NITROGEN 17 MG/DL (7-18); CALCIUM LEVEL 8.4 MG/DL (8.5-10.1); CARBON DIOXIDE LEVEL 25 MEQ/L (21-32); CHLORIDE LEVEL 106 MEQ/L (98-107); CREATININE FOR GFR 0.59 MG/DL (0.55-1.30); GLOMERULAR FILTRATION RATE > 60.0 (>51); GLUCOSE, FASTING 87 MG/DL (70-100); POTASSIUM SERUM 3.3 MEQ/L (3.5-5.1); SODIUM LEVEL 140 MEQ/L (136-145); TOTAL PROTEIN 5.5 GM/DL (6.4-8.2)
[2019-02-02 11:38] LABS: PLATELET ESTIMATE DECREASED (NORMAL)
[2019-02-02 11:39] LABS: ANISOCYTOSIS 2+; POLYCHROMASIA 1+
[2019-02-02] MEDS ORDERED: POTASSIUM CHLORIDE 10 MEQ SR TABLET PO ONE (13:30)
[2019-02-02 14:00] VITALS: BP 118/57
[2019-02-02] MEDS ORDERED: CALCIUM CARBONATE 500 MG CHEW U/D PO ONE (20:45)
[2019-02-02 22:00] VITALS: BP 109/68
[2019-02-02] MEDS ORDERED: KETOROLAC 30 MG/ML VIAL (J1885) IV ONE (22:15)
--- NOTE | 2019-02-02 22:45 | IPNPDOC ---
Text Note Date of Service The patient was seen on 02/02/19. NOTE Subjective: Complains of abdominal bloating and generalized soreness, also co mplains of leg swelling. No fever or chills, no nausea or vomiting or diarrhea. Says her abdomen feels less distended and less bloated today. PHYSICAL EXAMINATION: VITAL SIGNS: as below HEENT: Head is atraumatic, normocephalic. Moist mucous membranes, jaundice present. Neck is supple Lungs clear to auscultation. Heart: S1, S2 regular. No murmurs appreciated. Abdomen is distended. Positive bowel sounds. Extremities: bipedal edema Skin is intact. Neurologic examination, the patient is awake, alert and oriented times three. Labs and Radiology: Reviewed Assessment and Plan: 48-year-old female with a past medical history of liver cirrhosis secondary to chronic alcoholism, hepatitis C treated by Dr Nelson, bipolar disorder, chronic active tobacco abuser,chronic anemia, anxiety, agoraphobia, T12 compression fracture with fall, uterine prolapse, impulse control issue, anxiety disorder, restless leg who presents to the emergency room from Dr. Mancilla's office for possible abdominal paracentesis. The patient has been complaining of increased abdominal girth and shortness of breath when lying flat for over 2 weeks now. She has never been tapped before. US this am showed minimal ascitis not enough to be tapped. Alcoholic hepatitis continue prednisone till February 20. continue thiamine and folate. Alcoholic cirrhosis with features of anasarca started on lasix bid. will also add spironolactone. 2 gm sodium diet, fluid restriction US did not show any significant ascites for tapping. Internal hemorrhoids complains of severe pain and some bleeding will give anusol h cream will give 1 dose of toradol. H/o Gastritis continue pantoprazole. Bipolar disoreder, anxiety disorder, impulse control disorder not on any meds follow up PMD. restless legs continue ropinirole DVT prophylaxis has been ordered. VS,Fishbone, I+O VS, Fishbone, I+O Laboratory Tests 02/02/19 09:26 Red Blood Count 2.50 L, Mean Corpuscular Volume 114.4 H, Mean Corpuscular Hemoglobin 36.4 H, Mean Corpuscular Hemoglobin Concent 31.8 L, Red Cell Distr ibution Width 19.1 H, Neutrophils (%) (Auto) 76.4 H, Lymphocytes (%) (Auto) 15.5 L, Monocytes (%) (Auto) 6.3 H, Eosinophils (%) (Auto) 1.1, Basophils (%) (Auto) 0.2, Neutrophils # (Auto) 10.1 H, Lymphocytes # (Auto) 2.0, Monocytes # (Auto) 0.8, Eosinophils # (Auto) 0.1, Basophils # (Auto) 0.0, Calcium Level 8.4 L, Aspartate Amino Transf (AST/SGOT) 166 H, Alanine Aminotransferase (ALT/SGPT) 67, Alkaline Phosphatase 153 H, Total Bilirubin 6.2 H, Total Protein 5.5 L, Albumin 2.5 L Vital Signs Date Time Temp Pulse Resp B/P (MAP) Pulse Ox O2 Delivery O2 Flow Rate FiO2 02/02/19 22:00 97.9 93 18 109/68 (82) 95 02/01/19 00:29 Room Air I&O- Last 24 Hours up to 6 AM 02/02/19 06:00 Intake Total 220 ml Output Total 950 ml Balance -730 ml ANNE-MARIE DAVIS MD Feb 02, 2019 22:45
[2019-02-03 06:00] VITALS: BP 111/70
[2019-02-03 06:11] LABS: HEMATOCRIT 28.1 % (36.0-47.0); HEMOGLOBIN 9.3 g/dl (12.0-15.5); MEAN CORPUSCULAR HEMOGLOBIN 37.2 pg (27.0-33.0); MEAN CORPUSCULAR HGB CONC 33.1 g/dl (32.0-36.5); MEAN CORPUSCULAR VOLUME 112.4 fl (80.0-96.0); PLATELET COUNT, AUTOMATED 111 10^3/uL (150-450); WHITE BLOOD COUNT 10.9 10^3/uL (4.0-10.0)
[2019-02-03 06:35] LABS: ALBUMIN 2.4 GM/DL (3.2-5.2); ALT/SGPT 66 U/L (12-78); BILIRUBIN,TOTAL 6.4 MG/DL (0.2-1.0); BLOOD UREA NITROGEN 15 MG/DL (7-18); CALCIUM LEVEL 8.6 MG/DL (8.5-10.1); CARBON DIOXIDE LEVEL 24 MEQ/L (21-32); CHLORIDE LEVEL 105 MEQ/L (98-107); CREATININE FOR GFR 0.59 MG/DL (0.55-1.30); GLOMERULAR FILTRATION RATE > 60.0 (>51); GLUCOSE, FASTING 84 MG/DL (70-100); POTASSIUM SERUM 3.3 MEQ/L (3.5-5.1); SODIUM LEVEL 140 MEQ/L (136-145)
[2019-02-03] MEDS ORDERED: LACTULOSE 20 GM/30 ML SYRUP UD PO SCH (09:00)
[2019-02-03] MEDS: FOLIC ACID 1 MG TAB PO SCH (09:02)
[2019-02-03] MEDS: FUROSEMIDE 40 MG/4 ML VIAL (J1940) IV SCH (09:02)
[2019-02-03] MEDS: MULTIVITAMINS/MINERALS THERAP 1 TAB PO SCH (09:02)
[2019-02-03] MEDS: NICOTINE 21MG/24HR 1 EA TRANSDERMAL TD SCH (09:02)
[2019-02-03] MEDS: THIAMINE 100 MG TAB PO SCH (09:02)
[2019-02-03] MEDS: predniSONE 20 MG TAB PO SCH (09:02)
[2019-02-03] MEDS: SPIRONOLACTONE 25 MG TAB PO SCH (09:02)
[2019-02-03] MEDS: rOPINIRole 0.25 MG TAB(REQUIP) PO SCH ×2 (09:03→16:06)
[2019-02-03] MEDS: PANTOPRAZOLE 40MG TAB (PROTONIX) PO SCH (09:03)
[2019-02-03] MEDS: ANUSOL HC CREAM 30GM TOP SCH ×2 (09:03→16:07)
[2019-02-03] MEDS ORDERED: LACT10SO3 PO (11:30)
[2019-02-03] MEDS ORDERED: LASI40TA9 PO (11:30)
[2019-02-03] MEDS ORDERED: ALDA25TA2 PO (11:30)
[2019-02-03] MEDS ORDERED: POTASSIUM CHLORIDE 10 MEQ SR TABLET PO ONE (11:30)
[2019-02-03] MEDS ORDERED: PROC1CRE5 TOP (11:30)
--- NOTE | 2019-02-04 05:48 | DS.PDOC ---
Discharge Summary General Date of Admission Jan 31, 2019 at 21:11 Date of Discharge 02/03/19 Attending Physician: ANNE-MARIE DAVIS MD Discharge Summary PROCEDURES PERFORMED DURING STAY: [None]. DISCHARGE DIAGNOSES: Alcoholic cirrhosis with hypoalbuminemia and Anasarca Recovering Alcoholic hepatitis Internal and external hemorrhoids Bipolar disorder/ impulse control disorder/ anxiety disorder Restless legs H/O Gastritis COMPLICATIONS/CHIEF COMPLAINT: Ascites. HISTORY OF PRESENT ILLNESS: See History and Physical HOSPITAL COURSE: 48-year-old female with a past medical history of liver cirrhosis secondary to chronic alcoholism, hepatitis C treated by Dr Nelson, bipolar disorder, chronic active tobacco abuser,chronic anemia, anxiety, agoraphobia, T12 compression fracture with fall, uterine prolapse, impulse control issue, anxiety disorder, restless leg who presents to the emergency room from Dr. Mancilla's office for possible abdominal paracentesis. The patient has been complaining of increased abdominal girth and shortness of breath when lying flat for over 2 weeks now. She has never been tapped before. US this am showed minimal ascites not enough to be tapped. However patient did have anasarca so was started on aggressive diuresis which improved her symptoms. Alcoholic hepatitis continue prednisone till February 20. continue thiamine and folate. Alcoholic cirrhosis with features of anasarca started on lasix bid. will also add spironolactone. 2 gm sodium diet, fluid restriction US did not show any significant ascites for tapping. Internal hemorrhoids complains of severe pain and some bleeding will give anusol h cream H/o Gastritis continue pantoprazole. Bipolar disorder, anxiety disorder, impulse control disorder not on any meds follow up PMD. restless legs continue ropinirole DISCHARGE MEDICATIONS: Please see below. ALLERGIES: Please see below. PHYSICAL EXAMINATION ON DISCHARGE: VITAL SIGNS: Please see below. HEENT: Head is atraumatic, normocephalic. Moist mucous membranes, jaundice present. Neck is supple Lungs clear to auscultation. Heart: S1, S2 regular. No murmurs appreciated. Abdomen is distended. Positive bowel sounds. Extremities: bipedal edema Skin is intact. Neurologic examination, the patient is awake, alert and oriented times three. LABORATORY DATA: Please see below. ACTIVITY: [As tolerated]. DIET: Regular, Fluid restriction 1.5 liters. DISPOSITION: Home, Self-Care. DISCHARGE INSTRUCTIONS: 1. Follow up PMD in 1 [address] up [address] Figueroa as directed during previous admission. DISCHARGE CONDITION: [Stable]. TIME SPENT ON DISCHARGE: Greater than 30 minutes. Vital Signs/I&Os Vital Signs Date Time Temp Pulse Resp B/P (MAP) Pulse Ox O2 Delivery O2 Flow Rate FiO2 02/03/19 06:00 97.4 84 17 111/70 (84) 96 02/01/19 00:29 Room Air I&O- Last 24 Hours up to 6 AM 02/04/19 06:00 Intake Total 360 ml Output Total 1000 ml Balance -640 ml Laboratory Data Labs 24H Laboratory Tests 2 02/03/19 05:45: Nucleated Red Blood Cells % (auto) 0.0, Anion Gap 11, Glomerular Filtration Rate > 60.0, Blood Urea Nitrogen 15, Creatinine 0.59, Sodium Level 140, Potassium Level 3.3L, Chloride Level 105, Carbon Dioxide Level 24, Calcium Level 8.6, Aspartate Amino Transf (AST/SGOT) 153H, Alanine Aminotransferase (ALT/SGPT) 66, Alkaline Phosphatase 156H, Total Bilirubin 6.4H, Total Protein 6.0L, Albumin 2.4L, Albumin/Globulin Ratio 0.67L CBC/BMP Laboratory Tests 02/03/19 05:45 Red Blood Count 2.50 L, Mean Corpuscular Volume 112.4 H, Mean Corpuscular Hemoglobin 37.2 H, Mean Corpuscular Hemoglobin Concent 33.1, Red Cell Distribution Width 18.6 H, Calcium Level 8.6, Aspartate Amino Transf (AST/SGOT) 153 H, Alanine Aminotransferase (ALT/SGPT) 66, Alkaline Phosphatase 156 H, Total Bilirubin 6.4 H, Total Protein 6.0 L, Albumin 2.4 L Discharge Medications Scheduled (Proctozone-Hc) 2.5 % Cre, 0 DOSE TOP TID Folic Acid (Folic Acid) 1 Mg Tab, 1 MG PO DAILY Furosemide (Lasix) 40 Mg Tab, 40 MG PO DAILY Lactulose (Lactulose) 10 Gm/15 Ml Precious, 15 ML PO DAILY Multivitamins *[facility] STOCKED* (Thera M Plus *[facility] STOCKED*) 1 Tab Tab, 1 TAB PO DAILY Nicotine (Nicotine Transdermal Syst) 21 Mg/24 Hr Dis, 1 PATCH TD DAILY Pantoprazole Sodium Sesquihydr (Pantoprazole Sodium Dr) 40 Mg Tab, 40 MG PO DAILY, (Reported) Prednisone (Prednisone) 20 Mg Tab, 20 MG PO DAILY Ropinirole Hydrochloride (Ropinirole HCl) 0.5 Mg Tab, 0.5 MG PO TID, (Reported) Spironolactone (Aldactone) 25 Mg Tab, 25 MG PO QAM Thiamine Hcl (Thiamine Hcl) 100 Mg Tab, 100 MG PO DAILY Allergies Coded Allergies: No Known Allergies (Unverified , 07/08/15) ANNE-MARIE DAVIS MD Feb 04, 2019 05:47
== END 2019-02-03 16:45 | disposition home or self-care (01) | DRG 434 ==
LOC: M ED 15:02 → M ED INP 21:11 → M MSPAV 02-01 00:50
PROVIDERS: ADMIT Internal Medicine; ATTEND Internal Medicine Nephrology
DX: K70.31 Alcoholic cirrhosis of liver with ascites (principal); K70.11 Alcoholic hepatitis with ascites; F31.9 Bipolar disorder, unspecified; F40.00 Agoraphobia, unspecified; K64.4 Residual hemorrhoidal skin tags; F63.9 Impulse disorder, unspecified; F41.9 Anxiety disorder, unspecified; K64.8 Other hemorrhoids; G25.81 Restless legs syndrome; F17.210 Nicotine dependence, cigarettes, uncomplicated; Z79.52 Long term (current) use of systemic steroids; Z79.899 Other long term (current) drug therapy

== ENCOUNTER → 2019-03-08 | Outpatient (CLI) | payer MEDICARE, MEDICAID ==
[~2019-03-08] MED LIST changes: -/ONDA4TA PO; +ALDA25TA2 PO; +LACT10SO3 PO; +NICO21DI3 EXT; -NICO21PAT EXT; +ONDA-1 PO; +PANT-23 PO; +PROC1CRE5 TOP; +ROPI0.5T PO; -SERO50TA27 PO; +SERO50TA4 PO
[2019-03-08 14:01] LABS: BASO # 0.1 10^3/uL (0.0-0.2); BASO % 0.8 % (0.0-1.0); EOS # 0.2 10^3/uL (0.0-0.50); EOS % 1.4 % (0.0-3.0); HEMATOCRIT 37.7 % (36.0-47.0); HEMOGLOBIN 12.7 g/dl (12.0-15.5); LYMPH % 28.7 % (24.0-44.0); MEAN CORPUSCULAR HEMOGLOBIN 35.6 pg (27.0-33.0); MEAN CORPUSCULAR HGB CONC 33.7 g/dl (32.0-36.5); MEAN CORPUSCULAR VOLUME 105.6 fl (80.0-96.0); MONO # 0.8 10^3/uL (0.0-0.8); MONO % 7.9 % (0.0-5.0); NEUTROPHILS # 6.4 10^3/uL (1.8-7.7); NEUTROPHILS % 60.8 % (36.0-66.0); PLATELET COUNT, AUTOMATED 160 10^3/uL (150-450); RED BLOOD COUNT 3.57 10^6/uL (4.00-5.40); WHITE BLOOD COUNT 10.5 10^3/uL (4.0-10.0)
[2019-03-08 14:11] LABS: INR 1.29; PROTHROMBIN TIME 16.3 SECONDS (12.1-14.4)
[2019-03-08 14:12] LABS: PARTIAL THROMBOPLASTIN TIME 41.3 SECONDS (25.4-37.6)
[2019-03-08 14:28] LABS: ALBUMIN 3.4 GM/DL (3.2-5.2); ALT/SGPT 28 U/L (12-78); BILIRUBIN,TOTAL 3.9 MG/DL (0.2-1.0); BLOOD UREA NITROGEN 11 MG/DL (7-18); CARBON DIOXIDE LEVEL 25 MEQ/L (21-32); CHLORIDE LEVEL 103 MEQ/L (98-107); CREATININE FOR GFR 0.81 MG/DL (0.55-1.30); GLOMERULAR FILTRATION RATE > 60.0 (>51); GLUCOSE, FASTING 98 MG/DL (70-100); POTASSIUM SERUM 3.1 MEQ/L (3.5-5.1); SODIUM LEVEL 138 MEQ/L (136-145); TOTAL PROTEIN 6.7 GM/DL (6.4-8.2)
== END ==
LOC: M LAB 12:44
PROVIDERS: ATTEND Internal Medicine Gastroenterology
DX: K70.10 Alcoholic hepatitis without ascites (principal)

== ENCOUNTER → 2019-04-03 | Outpatient (CLI) | payer MEDICARE, MEDICAID ==
[~2019-04-03] MED LIST changes: +FURO40TA2 PO; +LACT10SO29 PO; +NICO21DI37 TD; +ONDA4TAB5 PO; +PHARMACY COMMENT; +SPIR-10 PO; -TRAZ-160 PO; +TRAZ-252 PO
[2019-04-03 15:30] LABS: BASO # 0.1 10^3/uL (0.0-0.2); BASO % 0.9 % (0.0-1.0); EOS # 0.1 10^3/uL (0.0-0.50); EOS % 1.5 % (0.0-3.0); HEMOGLOBIN 12.1 g/dl (12.0-15.5); LYMPH # 2.1 10^3/uL (1.5-4.5); LYMPH % 37.7 % (24.0-44.0); MEAN CORPUSCULAR HEMOGLOBIN 35.4 pg (27.0-33.0); MEAN CORPUSCULAR HGB CONC 33.6 g/dl (32.0-36.5); MEAN CORPUSCULAR VOLUME 105.3 fl (80.0-96.0); MONO # 0.6 10^3/uL (0.0-0.8); MONO % 11.1 % (0.0-5.0); NEUTROPHILS # 2.7 10^3/uL (1.8-7.7); NEUTROPHILS % 48.4 % (36.0-66.0); PLATELET COUNT, AUTOMATED 127 10^3/uL (150-450); RED BLOOD COUNT 3.42 10^6/uL (4.00-5.40); WHITE BLOOD COUNT 5.5 10^3/uL (4.0-10.0)
[2019-04-03 15:40] LABS: INR 1.29; PROTHROMBIN TIME 16.3 SECONDS (12.1-14.4)
[2019-04-03 15:41] LABS: PARTIAL THROMBOPLASTIN TIME 43.2 SECONDS (25.4-37.6)
[2019-04-03 15:57] LABS: ALBUMIN 2.9 GM/DL (3.2-5.2); ALT/SGPT 13 U/L (12-78); BILIRUBIN,TOTAL 3.8 MG/DL (0.2-1.0); BLOOD UREA NITROGEN 8 MG/DL (7-18); CALCIUM LEVEL 8.7 MG/DL (8.5-10.1); CARBON DIOXIDE LEVEL 26 MEQ/L (21-32); CHLORIDE LEVEL 106 MEQ/L (98-107); CREATININE FOR GFR 0.71 MG/DL (0.55-1.30); GLOMERULAR FILTRATION RATE > 60.0 (>51); GLUCOSE, FASTING 125 MG/DL (70-100); POTASSIUM SERUM 3.5 MEQ/L (3.5-5.1); SODIUM LEVEL 142 MEQ/L (136-145); TOTAL PROTEIN 6.5 GM/DL (6.4-8.2)
== END ==
LOC: M LAB 13:56
PROVIDERS: ATTEND Internal Medicine Gastroenterology
DX: K70.10 Alcoholic hepatitis without ascites (principal)

== ENCOUNTER 2019-04-12 15:02 | Inpatient (IN) | payer MEDICARE, MEDICAID ==
[~2019-04-12] VITALS: Ht 167.6 cm; Wt 84.5 kg
[2019-04-12] VITALS (16 sets, daily range): BP systolic 100–141; BP diastolic 54–76
[~2019-04-12 15:02] MED LIST changes: -FURO40TA2 PO; -LACT10SO29 PO; -NICO21DI37 TD; -ONDA4TAB5 PO; -PHARMACY COMMENT; -SPIR-10 PO
[2019-04-12 15:42] LABS: HEMATOCRIT 37.7 % (36.0-47.0); MEAN CORPUSCULAR HEMOGLOBIN 34.2 pg (27.0-33.0); MEAN CORPUSCULAR HGB CONC 34.5 g/dl (32.0-36.5); MEAN CORPUSCULAR VOLUME 99.2 fl (80.0-96.0); PLATELET COUNT, AUTOMATED 165 10^3/uL (150-450); WHITE BLOOD COUNT 10.3 10^3/uL (4.0-10.0)
--- NOTE | 2019-04-12 16:04 | REP ---
CHEST, SINGLE VIEW: There is no evidence of acute infiltrate. No pleural effusion is seen. The heart is normal in size. The mediastinal silhouette is unremarkable. The visualized osseous structures are intact. IMPRESSION: No acute pulmonary disease. Electronically Signed by Shivam Moon MD 04/16/2019 04:57 P
[2019-04-12 16:16] LABS: ATYPICAL LYMPH 8 % (0-5); BASOPHILS 3 % (0-4); EOSINOPHILS 1 % (0-5); LYMPHOCYTES 41 % (16-52); MONOCYTES 4 % (0-8); NEUTROPHILS 43 % (35-75)
[2019-04-12 16:17] LABS: PLATELET ESTIMATE NORMAL (NORMAL)
[2019-04-12 16:18] LABS: OSMOLALITY SERUM 387 MOSM/KG (275-295)
[2019-04-12 16:47] LABS: ACETAMINOPHEN LEVEL < 2.0 UG/ML (10.0-30.0); ALBUMIN 3.9 GM/DL (3.2-5.2); ALT/SGPT 23 U/L (12-78); BILIRUBIN,DIRECT 2.1 MG/DL (0.0-0.2); BILIRUBIN,TOTAL 4.5 MG/DL (0.2-1.0); BLOOD UREA NITROGEN 13 MG/DL (7-18); CALCIUM LEVEL 8.8 MG/DL (8.5-10.1); CARBON DIOXIDE LEVEL 25 MEQ/L (21-32); CHLORIDE LEVEL 105 MEQ/L (98-107); CPK CREATINE PHOSPHOKINASE 105 U/L (26-192); CREATININE FOR GFR 0.59 MG/DL (0.55-1.30); ETHYL ALCOHOL (ETHANOL) 0.324 % (0.000-0.010); GLOMERULAR FILTRATION RATE > 60.0 (>51); GLUCOSE, FASTING 110 MG/DL (70-100); MB/CK RELATIVE INDEX 1.24 (< OR =4); POTASSIUM SERUM 3.5 MEQ/L (3.5-5.1); SALICYLATE LEVEL < 1.7 MG/DL (5.0-30.0); SODIUM LEVEL 143 MEQ/L (136-145); THYROID STIMULATING HORMONE 0.858 uIU/ML (0.358-3.740); TOTAL PROTEIN 7.6 GM/DL (6.4-8.2); TROPONIN I < 0.02 NG/ML (< 0.10)
[2019-04-12 17:16] LABS: LIPASE 108 U/L (73-393)
[2019-04-12] MEDS ORDERED: ISOVUE-370 76% 100ML VIAL (Q9967) As Ordered ONE (17:26)
[2019-04-12] MEDS ORDERED: NS 1,000 ML IV ONE (17:30)
[2019-04-12] MEDS ORDERED: PANTOPRAZOLE 40MG INJ (PROTONIX) (C9113) IV ONE (17:30)
[2019-04-12 17:46] LABS: INR 1.34; PROTHROMBIN TIME 16.8 SECONDS (12.1-14.4)
[2019-04-12 17:47] LABS: PARTIAL THROMBOPLASTIN TIME 45.2 SECONDS (25.4-37.6)
[2019-04-12] MEDS ORDERED: NICO21DI37 TD (17:54)
[2019-04-12] MEDS ORDERED: FOLI1TAB11 PO (17:54)
[2019-04-12] MEDS ORDERED: LACT10SO29 PO (17:54)
[2019-04-12] MEDS ORDERED: SPIR-10 PO (17:57)
[2019-04-12] MEDS ORDERED: THIA100TA PO (17:57)
[2019-04-12] MEDS ORDERED: FURO40TA2 PO (17:57)
[2019-04-12] MEDS ORDERED: ONDA4TAB5 PO (17:58)
[2019-04-12] MEDS ORDERED: PHARMACY COMMENT (18:00)
[2019-04-12] MEDS ORDERED: ROCURONIUM BROMIDE 50 MG/5 ML VIAL As Ordered ONE (18:11)
[2019-04-12] MEDS ORDERED: LIDOCAINE 2% INJ 100 MG/5 ML SDV (FOR ANES.) As Ordered ONE (18:11)
[2019-04-12] MEDS ORDERED: SUCCINYLCHOLINE 100 MG/5 ML SYRINGE (J0330) As Ordered ONE (18:11)
[2019-04-12] MEDS ORDERED: PROPOFOL 200 MG/20 ML VIAL As Ordered ONE ×2 (18:11→19:43)
[2019-04-12] MEDS ORDERED: MIDAZOLAM INJ 2 MG/2 ML VIAL (J2250) As Ordered ONE (18:12)
[2019-04-12] MEDS ORDERED: dexameTHASONE 4 MG/ML 1ML VIAL (J1100) As Ordered ONE (18:12)
[2019-04-12] MEDS ORDERED: fentaNYL 100 MCG/2 ML INJECTION (J3010) As Ordered ONE (18:12)
[2019-04-12] MEDS ORDERED: ONDANSETRON 4MG/2ML VIAL (J2405) As Ordered ONE ×2 (18:12→20:30)
--- NOTE | 2019-04-12 19:22 | HPEPDOC ---
General Date of Admission Date of Service: Apr 12, 2019 Chief Complaint The patient is a 48-year-old female admitted with a reason for visit of AMS. Source: Patient, Family History of Present Illness 48-year-old female with a past medical history of liver cirrhosis secondary to chronic alcoholism, hepatitis C, bipolar disorder, chronic active tobacco abuser, who presents to the emergency room for altered mental status by family. Per patient and family, she has had coughed blood at least 2-3 times/day with a large amount of blood in stool for many days. She denies shortness of breath. The patient insists that she is sober from EtOH, but in the ED, EtOH level was found to be high. Per patient, she smokes many cigarretts/day. She denies a fever, chills, nausea, vomiting, or diarrhea. She endorses headache, neck pain. Home Medications Scheduled Folic Acid (Folic Acid) 1 Mg Tablet, 1 MG PO DAILY, (Reported) Furosemide (Furosemide) 40 Mg Tablet, 40 MG PO DAILY, (Reported) Lactulose (Lactulose) 10 Gm/15 Ml Solution, 15 ML PO DAILY, (Reported) Nicotine (Nicotine Patch) 21 Mg Patch.td24, 21 MG TD DAILY, (Reported) Pantoprazole Sodium (Pantoprazole Sodium) 40 Mg Tab, 40 MG PO DAILY, (Reported) Ropinirole HCl (Ropinirole HCl) 0.5 Mg Tab, 0.5 MG PO TID, (Reported) Spironolactone (Spironolactone) 25 Mg Tablet, 25 MG PO DAILY, (Reported) Thiamine Hcl (Vitamin B-1) 100 Mg Tablet, 100 MG PO DAILY, (Reported) Scheduled PRN Ondansetron HCl (Ondansetron HCl) 4 Mg Tablet, 4 MG PO Q12H PRN for NAUSEA OR VOMITING, (Reported) Miscellaneous Medications [Pharmacy Comment] , (Reported) MED LIST OBTAINED FROM PHARMACY Allergies Coded Allergies: No Known Allergies (Unverified , 07/08/15) Past Medical History Medical History 1. Liver cirrhosis secondary to hepatitis C and alcoholism. 2. History of chronic anemia. 3. Agoraphobia. 4. Bipolar disorder. Surgical History 1. Tubal ligation. 2. Carpal tunnel release in the right hand. Family History The patient does not know much about family medical history Social History * Smoker: current smoker Alcohol: heavy Drugs: denies see above A-FIB/CHADSVASC A-FIB History Current/History of A-Fib/PAF?: No Review of Systems Constitutional: Denies: Chills, Fever, Malaise, Night Sweats, Weakness, Fatigue, Weight Loss, Lethargy, Other Eyes: Denies: Pain, Vision change, Conjunctivae inflammation, Eyelid inflammation, Redness, Other ENT: Denies: Head Aches, Ear Pain, Dysphagia, Sinus Congestion, Post Nasal Drip, Sore Throat, Epistaxis, Other Symptoms Skin: Denies: Rash, Lesions, Jaundice, Bruising, Itching, Dry, Breakdown, Nail Changes, Other Pulmonary: Denies: Dyspnea, Cough, Pleuritic Chest Pain, Other Symptoms Cardiovascular: Denies: Chest Pain, Palpitations, Orthopnea, Paroxysmal Noc. Dyspnea, Edema, Lt Headedness, Other Symptoms Gastrointestinal: Reports: Other Symptoms (blood while coughing, large amount of blood in stool) Genitourinary: Denies: Dysuria, Frequency, Incontinence, Hematuria, Retention, Other Symptoms Hematologic: Denies: Bruising, Bleeding Excessively, Petecchia, Purpura, Enlarged Lymph Nodes, Other Hematologic Endocrine: Denies: Polydipsia, Polyphagia, Polyuria, Heat Intolerance, Cold Intolerance, Other Endocrine Sx Musculoskeletal: Denies: Neck Pain, Back Pain, Shoulder Pain, Arm Pain, Hand Pain, Leg Pain, Foot Pain, Joint Pain, Muscle Pain, Spasms, Other Symptoms Neurological: Denies: Weakness, Numbness, Incoordination, Change in speech, Confusion, Seizures, Other Symptoms Psych: Denies: Mood Normal, Anxiety, Depression, Memory Issues, Thoughts of Self Harm, Anger, Thoughts of Harming Other, Other Psych Physical Examination General Exam: Positive: Other (smells of alcohol and smoking, mildly confused, but answering questions properly) Eye Exam: Positive: PERRLA ENT Exam: Positive: Atraumatic Neck Exam: Positive: Supple Chest Exam: Positive: Clear to auscultation Heart Exam: Positive: Tachycardic Telemetry: Positive: No significant arrhythmia Abdomen Exam: Positive: Normal bowel sounds Extremity Exam: Positive: Other Skin Exam: Positive: Nl turgor and temperature Neuro Exam: Positive: Normal Speech (slurred speech) Vital Signs Vital Signs Date Time Temp Pulse Resp B/P (MAP) Pulse Ox O2 Delivery O2 Flow Rate FiO2 04/12/19 18:06 62 191/93 (125) 100 04/12/19 15:03 97.9 20 Room Air Laboratory Data Labs 24H Laboratory Tests 2 04/12/19 15:25: White Blood Count 10.3H, Red Blood Count 3.80L, Hemoglobin 13.0, Hematocrit 37.7, Mean Corpuscular Volume 99.2H, Mean Corpuscular Hemoglobin 34.2H, Mean Corpuscular Hemoglobin Concent 34.5, Red Cell Distribution Width 12.8, Platelet Count 165, Lymphocytes # (Auto) , Nucleated Red Blood Cells % (auto) 0.0, Neutrophils 43, Lymphocytes (Manual) 41, Monocytes (Manual) 4, Eosinophils (Manual) 1, Basophils (Manual) 3, Atypical Lymphocytes 8H, Platelet Estimate NORMAL, Red Blood Cell Morphology NORMAL, Anion Gap 13, Glomerular Filtration Rate > 60.0, Osmolality 387H, Calcium Level 8.8, Aspartate Amino Transf (AST/SGOT) 73H, Alanine Aminotransferase (ALT/SGPT) 23, Alkaline Phosphatase 157H, Total Bilirubin 4.5H, Direct Bilirubin 2.1H, Ammonia 55H, Total Creatine Kinase 105, Creatine Kinase MB 1.0, Creatine Kinase MB Relative Index 1.24, Troponin I < 0.02, Total Protein 7.6, Albumin 3.9, Albumin/Globulin Ratio 1.05, Lipase 108, Thyroid Stimulating Hormone (TSH) 0.858, Salicylates Level < 1.7L, Acetaminophen Level < 2.0L, Ethyl Alcohol Level 0.324H 04/12/19 16:59: Prothrombin Time 16.8H, Prothromb Time International Ratio 1.34, Activated Partial Thromboplast Time 45.2H CBC/BMP Laboratory Tests 04/12/19 15:25 Red Blood Count 3.80 L, Mean Corpuscular Volume 99.2 H, Mean Corpuscular Hemoglobin 34.2 H, Mean Corpuscular Hemoglobin Concent 34.5, Red Cell Distribution Width 12.8, Lymphocytes # (Auto) Microbiology Microbiology 04/12/19 Blood Culture, Received Pending 04/12/19 Blood Culture, Received Pending Problems (1) Hematemesis Problem Text: # Hematemesis and blood in stool, EtOH abuse - She has liver cirrhosis, continues to drinks, highly suspecting variceal bleeding. - GI was consulted, and the patient will be taken to the OR for stopping bleeding. Dr. Figueroa is aware of the case. - Currently, Hb is stable, but will follow q4h. - After the OR procedure, the patient will need to be admitted and monitored in the ICU. ICU was notified. - The patient has abused EtOH, and this likely contributed to GI bleeding in the setting of liver cirrhosis. - Two IV access. Type and screen will be ordered with repeat CBC for possible transfusion. - Will follow the recommendation from Dr. Figueroa. - Continue protonix 40 IV BID. # EtOH abuse - EtOH level, serum is elevated. The patient insists that she is sober. - Will have ativan 2 mg IV q2h PRN anxiety. - CIWA - Continue thiamine, folic acid, and multivitamin. - Will start librium, long acting benzo to decrease a chance for withdrawal. # hepatitis C - Will need outpatient follow up # Smoking - Nicotine patch NPO except meds Plan / VTE VTE Prophylaxis Ordered?: No (GI bleeding) NICOLAS GARCIA MD Apr 12, 2019 19:22
--- NOTE | 2019-04-12 19:26 | CR ---
DATE OF CONSULTATION: 04/12/2019 STATUS PATIENT: Inpatient. REQUESTING PHYSICIAN: Hospitalist service. REASON FOR CONSULTATION: Hematemesis. HISTORY OF PRESENT ILLNESS: Mrs. Araiza is a 48-year-old female known to me from previous admission with a long history of alcoholism. She has recently developed alcoholic hepatitis, was admitted to the hospital for multiple days, discharged on prednisone for 30 days for alcoholic hepatitis. She has a baseline history of cirrhosis, which appears to be otherwise compensated. She continues to consume alcohol in the way of binging. She was in her usual state of health until approximately yesterday, when she started having worsening episodes of nausea, vomiting and abdominal cramping. She presents to the emergency room today, intoxicated, claiming to have vomited large quantities of bright red blood. She also has passed some maroon stool from below. The history is not exactly reliable as the patient right now is quite inebriated and does not have a very coherent history. Per emergency room (ER) physician, some of that hematemesis was witnessed by her boyfriend. Examination in the emergency room did show some blood in the stool. The patient, at this time, is denying any significant abdominal pain. She appears to be quite comfortable, ambulating in her room. She is nontoxic in appearance, but again, she appears to be quite inebriated with alcohol. PAST MEDICAL HISTORY: 1. Alcoholic hepatitis. 2. Alcoholic cirrhosis. 3. History of hepatitis C. 4. History of depression. SURGICAL HISTORY: 1. Upper endoscopy and colonoscopy in 2017. 2. Ulnar nerve surgery. 3. Tubal ligation. 4. Carpal tunnel release. FAMILY HISTORY: Negative for colorectal carcinoma, inflammatory bowel disease. SOCIAL HISTORY: Positive for tobacco. Positive for continued alcohol binging. The patient had stopped for approximately four months, however, relapsed. ALLERGIES: No known drug allergies. MEDICATIONS AT HOME: - nicotine patch - pantoprazole - furosemide - spironolactone - lactulose REVIEW OF SYSTEMS: Not reliably obtainable, as the patient is inebriated. EXAMINATION: Pulse is variable from 126-102, blood pressure varies from 170/79 to 113/93, pulse oximetry is 100% on room air. The patient is unable to hold still for orthostatic blood pressures. The patient appears comfortable and happy, walking around the room and slurring her speech. She is inebriated as stated above. HEAD, EARS, EYES, NOSE AND THROAT: Grossly without abnormality. There is no oral thrush. NECK: No lymphadenopathy, thyromegaly. CHEST: Clear bilaterally. HEART: Regular rate rhythm. S1, S2. Perhaps slightly tachycardiac. ABDOMEN: Soft, moderately tender over the liver on deep palpation only. No rebound tenderness. I do not appreciate any ascites. There are no masses. EXTREMITIES: Negative for edema. RECTAL EXAMINATION: Definitely refused by the patient at this time. She states that she had done earlier and they found some blood. WBC 10.3, hemoglobin is 13.0, hematocrit is 37.7, MCV is 99.2. Total bilirubin is 4.5, direct bilirubin 2.1, AST 73, ALT 23, alkaline phosphatase 157. Alcohol level 0.324. PT/INR 1.34. IMPRESSION: 1. Hematemesis of bright red blood. Unable to quantify, but at least three to four times within an hour of arrival, in a patient with alcoholic hepatitis, cirrhosis. 2. Heme-positive stools. 3. Alcohol intoxication. RECOMMENDATIONS: 1. The patient is unable to quantify the amount of hematemesis; however, her boyfriend confirms that there was a significant amount of vomiting of fresh blood over past 2-3 hours. Therefore, despite the lack of unstable vital signs and the lack of a significant hemoglobin drop, I think it would be prudent to proceed with an upper endoscopy to evaluate her for a potential variceal bleed. 2. Alcoholism. Alcoholic inebriation will need to be re-addressed with her and the patient will be counseled for cessation once again once she has sobered up. 3. Baseline cirrhosis. Is presently relatively compensated, with a relatively normal albumin and normal INR and lack of ascites. 4. Alcoholic hepatitis. This will be monitored at this time without repeat prednisone for now, as her discriminant function is not at this time elevated.
[2019-04-12] MEDS ORDERED: OCTREOTIDE ACETATE 1,200 MCG in NS 238.8 ML IV SCH (20:00)
--- NOTE | 2019-04-12 20:16 | ROOR ---
Patient Name: Bianca Araiza Procedure Date: 04/12/2019 5:57 PM Date of : 1970 Age: 48 Gender: Female Note Status: Finalized Procedure: Upper GI endoscopy Indications: Hematemesis, Cirrhosis with UGI bleeding suspected esophageal varices Providers: Dieudonne FIGUEROA MD Referring MD: 1. No Referring Physician 1. No Referring Physician, Admin. Requesting Provider: Medicines: Monitored Anesthesia Care Complications: No immediate complications. Procedure: Pre-Anesthesia Assessment: - The heart rate, respiratory rate, oxygen saturations, blood pressure, adequacy of pulmonary ventilation, and response to care were monitored throughout the procedure. The Endoscope was introduced through the mouth, and advanced to the second part of duodenum. The upper GI endoscopy was accomplished without difficulty. The patient tolerated the procedure well. Findings: Grade I varices were found in the lower third of the esophagus. They were small in size. One band was successfully placed with complete eradication, resulting in deflation of varices. There was no bleeding during and at the end of the procedure. Hematin (altered blood/rfjdhl-xqewhl-xbba material) was found in the entire examined stomach- no source of bleed seen in stomach.. The entire examined stomach was normal. Biopsies were taken with a cold forceps for histology. A few shallow erosions without bleeding were found in the first portion of the duodenum. - No source for bleeding seen in duodenum. Impression: - Grade I esophageal varices. Completely eradicated. Banded x 1. - Normal stomach with hematin (altered blood/bgrtwy-xktjow-kwro material) in the entire stomach. Biopsied. - Scattered small shallow duodenal erosions/duodenitis without bleeding. Recommendation: - Observe patient's clinical course. - Administer an IV bolus of 50 micrograms of octreotide followed by an infusion of 50 micrograms per hour for 2 days. - Use a proton pump inhibitor IV BID. - Clear liquid diet today. - Recommend an anti-emetic/anti-nausea medication. Dieudonne Figueroa MD Dieudonne FIGUEROA MD 04/12/2019 8:16:35 PM Electronically signed by Dieudonne FIGUEROA MD Number of Addenda: 0 Note Initiated On: 04/12/2019 5:57 PM Estimated Blood Loss: Estimated blood loss: none.
[2019-04-12] MEDS ORDERED: MEPERIDINE INJ 25 MG/ML VIAL (J2175) IV PRN (20:45)
[2019-04-12] MEDS ORDERED: ONDANSETRON 4MG/2ML VIAL (J2405) IV PRN ×2 (20:45)
[2019-04-12] MEDS ORDERED: METOCLOPRAMIDE INJ 10MG/2ML VIAL (J2765) IV PRN (20:45)
[2019-04-12] MEDS ORDERED: PERCOCET 5MG/325MG TAB PO PRN (20:45)
[2019-04-12] MEDS ORDERED: fentaNYL 100 MCG/2 ML INJECTION (J3010) IV PRN (20:45)
[2019-04-12] MEDS ORDERED: LIDOCAINE VISCOUS 2% SOLN 15ML UDC MT PRN (20:45)
[2019-04-12] MEDS ORDERED: LR 1,000 ML IV SCH (20:45)
[2019-04-12] MEDS: CHLORHEXIDINE GLUCONATE 0.12 % 15ML UDC (PERIDEX ORAL RINSE) MT SCH (21:00)
[2019-04-12] MEDS: NICOTINE 21MG/24HR 1 EA TRANSDERMAL TD SCH (21:22)
[2019-04-12] MEDS: LORazepam 2 MG/ML VIAL (J2060) IV PRN (21:22)
[2019-04-12] MEDS: chlordiazePOXIDE 25 MG CAP PO SCH (21:22)
[2019-04-12] MEDS: PANTOPRAZOLE 40MG INJ (PROTONIX) (C9113) IV SCH (21:22)
[2019-04-12 21:57] LABS: HEMATOCRIT 32.8 % (36.0-47.0); HEMOGLOBIN 11.1 g/dl (12.0-15.5); MEAN CORPUSCULAR HEMOGLOBIN 34.7 pg (27.0-33.0); MEAN CORPUSCULAR HGB CONC 33.8 g/dl (32.0-36.5); MEAN CORPUSCULAR VOLUME 102.5 fl (80.0-96.0); PLATELET COUNT, AUTOMATED 111 10^3/uL (150-450); WHITE BLOOD COUNT 5.1 10^3/uL (4.0-10.0)
[2019-04-13] VITALS (9 sets, daily range): BP systolic 104–129; BP diastolic 57–73
[2019-04-13] MEDS: LORazepam 2 MG/ML VIAL (J2060) IV PRN ×2 (00:07→05:06)
[2019-04-13 02:07] LABS: HEMATOCRIT 33.4 % (36.0-47.0); HEMOGLOBIN 11.4 g/dl (12.0-15.5); MEAN CORPUSCULAR HGB CONC 34.1 g/dl (32.0-36.5); MEAN CORPUSCULAR VOLUME 102.5 fl (80.0-96.0); RED BLOOD COUNT 3.26 10^6/uL (4.00-5.40); WHITE BLOOD COUNT 3.8 10^3/uL (4.0-10.0)
[2019-04-13 02:15] LABS: PLATELET COUNT, AUTOMATED 97 10^3/uL (150-450)
[2019-04-13 04:45] LABS: HEMATOCRIT 33.1 % (36.0-47.0); HEMOGLOBIN 11.1 g/dl (12.0-15.5); MEAN CORPUSCULAR HEMOGLOBIN 34.5 pg (27.0-33.0); MEAN CORPUSCULAR HGB CONC 33.5 g/dl (32.0-36.5); MEAN CORPUSCULAR VOLUME 102.8 fl (80.0-96.0); RED BLOOD COUNT 3.22 10^6/uL (4.00-5.40)
[2019-04-13 05:06] LABS: ALBUMIN 2.9 GM/DL (3.2-5.2); ALT/SGPT 17 U/L (12-78); BILIRUBIN,TOTAL 4.7 MG/DL (0.2-1.0); BLOOD UREA NITROGEN 10 MG/DL (7-18); CALCIUM LEVEL 8.1 MG/DL (8.5-10.1); CARBON DIOXIDE LEVEL 24 MEQ/L (21-32); CHLORIDE LEVEL 105 MEQ/L (98-107); GLOMERULAR FILTRATION RATE > 60.0 (>51); GLUCOSE, FASTING 165 MG/DL (70-100); POTASSIUM SERUM 4.1 MEQ/L (3.5-5.1); SODIUM LEVEL 140 MEQ/L (136-145); TOTAL PROTEIN 6.5 GM/DL (6.4-8.2)
[2019-04-13 05:10] LABS: PLATELET COUNT, AUTOMATED 82 10^3/uL (150-450)
[2019-04-13] MEDS ORDERED: THIAMINE HCL 200 MG/2 ML VIAL (J3411) IV SCH (09:00)
[2019-04-13] MEDS: CHLORHEXIDINE GLUCONATE 0.12 % 15ML UDC (PERIDEX ORAL RINSE) MT SCH (09:00)
[2019-04-13] MEDS ORDERED: FOLIC ACID 1 MG in NS 50 ML IV SCH (09:00)
[2019-04-13] MEDS: chlordiazePOXIDE 25 MG CAP PO SCH ×2 (09:43→15:34)
[2019-04-13] MEDS: PANTOPRAZOLE 40MG INJ (PROTONIX) (C9113) IV SCH (09:44)
[2019-04-13] MEDS: NICOTINE 21MG/24HR 1 EA TRANSDERMAL TD SCH (09:44)
[2019-04-13 10:53] LABS: HEMATOCRIT 33.3 % (36.0-47.0); MEAN CORPUSCULAR HEMOGLOBIN 34.1 pg (27.0-33.0); MEAN CORPUSCULAR VOLUME 103.1 fl (80.0-96.0); RED BLOOD COUNT 3.23 10^6/uL (4.00-5.40); WHITE BLOOD COUNT 2.1 10^3/uL (4.0-10.0)
[2019-04-13 10:58] LABS: PLATELET COUNT, AUTOMATED 81 10^3/uL (150-450)
[2019-04-13] MEDS: ACETAMINOPHEN TAB 650MG DOSE (2X325MG) PO PRN ×2 (11:00→15:35)
[2019-04-13 13:03] LABS: AMPHETAMINES LEVEL URINE NEGATIVE (NEGATIVE); BARBITURATES URINE NEGATIVE (NEGATIVE); BENZODIAZEPINES URINE POSITIVE (NEGATIVE); CANNABINOIDS URINE NEGATIVE (NEGATIVE); COCAINE METABOLITE URINE NEGATIVE (NEGATIVE); METHADONE URINE NEGATIVE (NEGATIVE); OPIATES URINE NEGATIVE (NEGATIVE); PHENCYCLIDINE URINE NEGATIVE (NEGATIVE)
[2019-04-13] MEDS ORDERED: MAALOX 30 ML SUSP *UDC PO PRN (15:15)
[2019-04-13] MEDS ORDERED: PROT1TAB2 PO (16:50)
--- NOTE | 2019-04-13 17:08 | DS.PDOC ---
Discharge Summary General Date of Admission Apr 12, 2019 at 19:09 Date of Discharge 04/13/2019 Discharge Summary PROCEDURES PERFORMED DURING STAY: [None]. ADMITTING DIAGNOSES: 1. Upper and lower GI bleeding DISCHARGE DIAGNOSES: 1. Esophageal variceal bleeding COMPLICATIONS/CHIEF COMPLAINT: Ascites,Cirrhosis Of Liver,Hematemesis. HISTORY OF PRESENT ILLNESS: 48-year-old female with a past medical history of liver cirrhosis secondary to chronic alcoholism, hepatitis C, bipolar disorder, chronic active tobacco abuser, who presents to the emergency room for altered mental status by family. Per patient and family, she has had coughed blood at least 2-3 times/day with a large amount of blood in stool for many days. She denies shortness of breath. The patient insists that she is sober from EtOH, but in the ED, EtOH level was found to be high. Per patient, she smokes many cigarretts/day. She denies a fever, chills, nausea, vomiting, or diarrhea. She endorses headache, neck pain. HOSPITAL COURSE: Given a history of liver cirrhosis and advanced liver disease, esophageal bleeding was highly suspected. The patient was taken to the OR, and 1 esophageal varices was cauterized by Dr. Figueroa. PPI BID and octreotide gtt were initiated. She was monitored in the ICU, and later downgraded to the regular medical floor. Diet was escalated. For EtOH abuse, although she denies drinking EtOH, her EtOH was very high. To prevent alcohol withdrawal, ativan 2 mg IV q2h PRN anxiety and librium were ordered. She had to use a few ativan for shakiness. She was put on CIWA protocol. Although she is not medically stable to be discharged, she wants to go home because she feels great. I tried to persuade her, but she adamantly wants to leave. She signed the AMA paper. I explained the risk of bleeding, fall, heart attack, and . She verbally understood. DISCHARGE MEDICATIONS: Please see below. ALLERGIES: Please see below. PHYSICAL EXAMINATION ON DISCHARGE: VITAL SIGNS: Please see below. General Exam: Positive: Other (smells of alcohol and smoking, mildly confused, but answering questions properly) Eye Exam: Positive: PERRLA ENT Exam: Positive: Atraumatic Neck Exam: Positive: Supple Chest Exam: Positive: Clear to auscultation Heart Exam: Positive: Tachycardic Telemetry: Positive: No significant arrhythmia Abdomen Exam: Positive: Normal bowel sounds Extremity Exam: Positive: Other Skin Exam: Positive: Nl turgor and temperature Neuro Exam: Positive: Normal Speech (slurred speech) LABORATORY DATA: Please see below. DISCHARGE PLAN: She will need to be seen by a GI physician or primary care doctor at least, and she understood it. Vital Signs/I&Os Vital Signs Date Time Temp Pulse Resp B/P (MAP) Pulse Ox O2 Delivery O2 Flow Rate FiO2 04/13/19 14:20 84 129/70 04/13/19 14:16 97.1 18 95 04/13/19 12:00 04/12/19 15:03 Room Air I&O- Last 24 Hours up to 6 AM 04/13/19 06:00 Intake Total 1940 ml Output Total 300 ml Balance 1640 ml Laboratory Data Labs 24H Laboratory Tests 2 04/12/19 21:46: Nucleated Red Blood Cells % (auto) 0.0 04/13/19 01:57: Nucleated Red Blood Cells % (auto) 0.0, Immature Platelet Fraction 2.3 04/13/19 04:20: Nucleated Red Blood Cells % (auto) 0.0, Anion Gap 11, Glomerular Filtration Rate > 60.0, Blood Urea Nitrogen 10, Creatinine 0.60, Sodium Level 140, Potassium Level 4.1, Chloride Level 105, Carbon Dioxide Level 24, Calcium Level 8.1L, Aspartate Amino Transf (AST/SGOT) 56H, Alanine Aminotransferase (ALT/SGPT) 17, Alkaline Phosphatase 134H, Total Bilirubin 4.7H, Total Protein 6.5, Albumin 2.9#L, Albumin/Globulin Ratio 0.81L 04/13/19 10:05: Nucleated Red Blood Cells % (auto) 0.0 04/13/19 12:24: Urine Color YELLOW, Urine Appearance CLEAR, Urine pH 6.0, Urine Specific [place] 1.010, Urine Protein NEGATIVE, Urine Glucose (UA) 3+H, Urine Ketones NEGATIVE, Urine Blood NEGATIVE, Urine Nitrite NEGATIVE, Urine Bilirubin NEGATIVE, Urine Urobilinogen 4.0H, Urine Leukocyte Esterase NEGATIVE, Urine WBC (Auto) 2, Urine RBC (Auto) 1, Urine Hyaline Casts (Auto) 0, Urine Bacteria (Auto) NEGATIVE, Urine Squamous Epithelial Cells 2, Urine Sperm (Auto) , Urine Amphetamines Screen NEGATIVE, Urine Benzodiazepines Screen POSITIVEH, Urine Opiates Screen NEGATIVE, Urine Methadone Screen NEGATIVE, Urine Barbiturates Screen NEGATIVE, Urine Phencyclidine Screen NEGATIVE, Urine Cocaine Metabolite Screen NEGATIVE, Urine Cannabinoids Screen NEGATIVE CBC/BMP Laboratory Tests 04/12/19 21:46 Red Blood Count 3.20 L, Mean Corpuscular Volume 102.5 H, Mean Corpuscular Hemoglobin 34.7 H, Mean Corpuscular Hemoglobin Concent 33.8, Red Cell Distribution Width 12.8 04/13/19 01:57 Red Blood Count 3.26 L, Mean Corpuscular Volume 102.5 H, Mean Corpuscular Hemoglobin 35.0 H, Mean Corpuscular Hemoglobin Concent 34.1, Red Cell Distribution Width 12.6 04/13/19 04:20 Red Blood Count 3.22 L, Mean Corpuscular Volume 102.8 H, Mean Corpuscular Hemoglobin 34.5 H, Mean Corpuscular Hemoglobin Concent 33.5, Red Cell Distribution Width 12.7, Calcium Level 8.1 L, Aspartate Amino Transf (AST/SGOT) 56 H, Alanine Aminotransferase (ALT/SGPT) 17, Alkaline Phosphatase 134 H, Total Bilirubin 4.7 H, Total Protein 6.5, Albumin 2.9 #L 04/13/19 10:05 Red Blood Count 3.23 L, Mean Corpuscular Volume 103.1 H, Mean Corpuscular Hemoglobin 34.1 H, Mean Corpuscular Hemoglobin Concent 33.0, Red Cell Distribution Width 12.4 Microbiology Microbiology 04/12/19 Blood Culture, Received Pending 04/12/19 Blood Culture - Preliminary, Resulted No growth after 24 hours . All specim... Discharge Medications Scheduled Folic Acid (Folic Acid) 1 Mg Tablet, 1 MG PO DAILY, (Reported) Furosemide (Furosemide) 40 Mg Tablet, 40 MG PO DAILY, (Reported) Lactulose (Lactulose) 10 Gm/15 Ml Solution, 15 ML PO DAILY, (Reported) Nicotine (Nicotine Patch) 21 Mg Patch.td24, 21 MG TD DAILY, (Reported) Pantoprazole Sodium (Protonix) 40 Mg Tablet.dr, 40 MG PO BID Ropinirole HCl (Ropinirole HCl) 0.5 Mg Tab, 0.5 MG PO TID, (Reported) Spironolactone (Spironolactone) 25 Mg Tablet, 25 MG PO DAILY, (Reported) Thiamine Hcl (Vitamin B-1) 100 Mg Tablet, 100 MG PO DAILY, (Reported) Scheduled PRN Ondansetron HCl (Ondansetron HCl) 4 Mg Tablet, 4 MG PO Q12H PRN for NAUSEA OR VOMITING, (Reported) Miscellaneous Medications [Pharmacy Comment] , (Reported) MED LIST OBTAINED FROM PHARMACY Allergies Coded Allergies: No Known Allergies (Unverified , 07/08/15) NICOLAS GARCIA MD Apr 13, 2019 17:08
--- NOTE | 2019-04-14 08:13 | ECGEPIP ---
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
== END 2019-04-13 17:00 | disposition left against medical advice (07) | DRG 432 ==
LOC: M ED 15:02 → M ED INP 19:09 → M ICU 21:04 → M MSPAV 04-13 14:16
PROVIDERS: ADMIT Internal Medicine; ATTEND Internal Medicine
PROC: 0DBE8ZX Excision of Large Intestine, Via Natural or Artificial Opening Endoscopic, Diagnostic (ICD-10-PCS; 2019-04-12)
PROC: 0W3P8ZZ Control Bleeding in Gastrointestinal Tract, Via Natural or Artificial Opening Endoscopic (ICD-10-PCS; principal; 2019-04-12 17:37)
DX: K70.30 Alcoholic cirrhosis of liver without ascites (principal); I85.11 Secondary esophageal varices with bleeding; F10.20 Alcohol dependence, uncomplicated; F17.210 Nicotine dependence, cigarettes, uncomplicated; K70.10 Alcoholic hepatitis without ascites; F40.00 Agoraphobia, unspecified; F31.9 Bipolar disorder, unspecified; Z79.899 Other long term (current) drug therapy

== ENCOUNTER 2019-04-17 21:33 | Emergency (ER) | payer MEDICARE, MEDICAID ==
[~2019-04-17] VITALS: Ht 165.1 cm; Wt 62.7 kg
[~2019-04-17 21:33] MED LIST changes: +FURO40TA2 PO; +LACT10SO29 PO; +NICO21DI37 TD; +ONDA4TAB5 PO; +PHARMACY COMMENT; +SPIR-10 PO
[2019-04-17 21:34] VITALS: BP 115/60
== END 2019-04-17 21:45 | disposition left against medical advice (07) ==
LOC: M ED 21:33
DX: R06.02 Shortness of breath (principal); Z53.21 Procedure and treatment not carried out due to patient leaving prior to being seen by health care provider

== ENCOUNTER 2019-05-04 01:39 | Emergency (ER) | payer MEDICARE, MEDICAID ==
[~2019-05-04] VITALS: Ht 165.1 cm; Wt 62.7 kg
[~2019-05-04 01:39] MED LIST changes: +ONDA-83 PO; -ONDA4TAB5 PO
[2019-05-04 02:02] LABS: HEMATOCRIT 33.1 % (36.0-47.0); HEMOGLOBIN 11.3 g/dl (12.0-15.5); MEAN CORPUSCULAR HEMOGLOBIN 34.6 pg (27.0-33.0); MEAN CORPUSCULAR HGB CONC 34.1 g/dl (32.0-36.5); MEAN CORPUSCULAR VOLUME 101.2 fl (80.0-96.0); PLATELET COUNT, AUTOMATED 158 10^3/uL (150-450); RED BLOOD COUNT 3.27 10^6/uL (4.00-5.40)
[2019-05-04 02:03] LABS: WHITE BLOOD COUNT 10.6 10^3/uL (4.0-10.0)
[2019-05-04 02:12] LABS: INR 1.55; PROTHROMBIN TIME 18.3 SECONDS (11.8-14.0)
[2019-05-04 02:13] LABS: PARTIAL THROMBOPLASTIN TIME 46.4 SECONDS (25.0-38.4)
[2019-05-04 02:30] LABS: BASOPHILS 1 % (0-4); EOSINOPHILS 1 % (0-5); LYMPHOCYTES 52 % (16-52); MONOCYTES 7 % (0-8); NEUTROPHILS 39 % (35-75); PLATELET ESTIMATE NORMAL (NORMAL)
[2019-05-04 03:06] LABS: ALBUMIN 3.6 GM/DL (3.2-5.2); ALT/SGPT 19 U/L (12-78); AMYLASE 43 U/L (25-115); BILIRUBIN,DIRECT 1.4 MG/DL (0.0-0.2); BILIRUBIN,TOTAL 3.6 MG/DL (0.2-1.0); BLOOD UREA NITROGEN 11 MG/DL (7-18); CALCIUM LEVEL 8.2 MG/DL (8.5-10.1); CARBON DIOXIDE LEVEL 25 MEQ/L (21-32); CHLORIDE LEVEL 106 MEQ/L (98-107); ETHYL ALCOHOL (ETHANOL) 0.385 % (0.000-0.010); GLOMERULAR FILTRATION RATE > 60.0 (>51); GLUCOSE, FASTING 132 MG/DL (70-100); LIPASE 165 U/L (73-393); SODIUM LEVEL 147 MEQ/L (136-145); TOTAL PROTEIN 6.8 GM/DL (6.4-8.2)
[2019-05-04 03:07] LABS: POTASSIUM SERUM 2.9 MEQ/L (3.5-5.1)
[2019-05-04] MEDS ORDERED: KETOROLAC 30 MG/ML VIAL (J1885) IV ONE (04:45)
[2019-05-04] MEDS ORDERED: POTASSIUM CHLORIDE 10 MEQ SR TABLET PO ONE (04:45)
[2019-05-04 05:12] LABS: BASO % 0.5 % (0.0-1.0); EOS # 0.1 10^3/uL (0.0-0.50); EOS % 1.4 % (0.0-3.0); HEMATOCRIT 32.2 % (36.0-47.0); HEMOGLOBIN 11.1 g/dl (12.0-15.5); LYMPH # 4.1 10^3/uL (1.5-4.5); LYMPH % 46.2 % (24.0-44.0); MEAN CORPUSCULAR HGB CONC 34.5 g/dl (32.0-36.5); MEAN CORPUSCULAR VOLUME 101.6 fl (80.0-96.0); MONO # 0.8 10^3/uL (0.0-0.8); MONO % 8.7 % (0.0-5.0); NEUTROPHILS # 3.8 10^3/uL (1.8-7.7); NEUTROPHILS % 42.9 % (36.0-66.0); PLATELET COUNT, AUTOMATED 156 10^3/uL (150-450); RED BLOOD COUNT 3.17 10^6/uL (4.00-5.40); WHITE BLOOD COUNT 8.8 10^3/uL (4.0-10.0)
--- NOTE | 2019-05-04 05:38 | REPVR ---
EXAM: CT Head Without Contrast EXAM DATE/TIME: 05/04/2019 4:10 AM CLINICAL HISTORY: 48 years old, female; Injury or trauma; Fall TECHNIQUE: Imaging protocol: Axial computed tomography images of the head without contrast. Radiation optimization: All CT scans at this facility use at least one of these dose optimization techniques: automated exposure control; mA and/or kV adjustment per patient size (includes targeted exams where dose is matched to clinical indication); or iterative reconstruction. COMPARISON: CT Head without contrast 09/27/2015 7:59 AM FINDINGS: Brain: There is slight prominence of the peripheral sulci. Ventricles: There is slight prominence of the central ventricular system. Bones/joints: Unremarkable. No acute fracture. Sinuses: Visualized sinuses are unremarkable. No fluid levels. Mastoid air cells: Visualized mastoid air cells are well aerated. No mastoid effusion. Soft tissues: Unremarkable. IMPRESSION: 1. Minimal atrophic change for age which is similar to 09/27/2015. 2. Otherwise negative noncontrast head CT. Electronically signed by: Jaspreet Elizondo On 05/04/2019 05:38:09 AM
--- NOTE | 2019-05-04 05:47 | ECGEPIP ---
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
[2019-05-04] MEDS ORDERED: LORazepam 2 MG TAB PO PRN (06:00)
[2019-05-04 07:36] VITALS: BP 126/62
[2019-05-04] MEDS ORDERED: THIAMINE 100 MG TAB PO SCH (09:00)
[2019-05-04] MEDS ORDERED: FOLIC ACID 1 MG TAB PO SCH (09:00)
[2019-05-04] MEDS ORDERED: MULTIVITAMINS/MINERALS THERAP 1 TAB PO SCH (09:00)
[2019-09-17] MEDS ORDERED: ONDA-83 PO (20:47)
[2019-10-08] MEDS ORDERED: FOLI1TAB11 PO (12:13)
[2019-10-08] MEDS ORDERED: LACT10SO3 PO (12:13)
[2019-10-08] MEDS ORDERED: PANT40TA3 PO (12:13)
== END 2019-05-04 08:06 | disposition home or self-care (01) ==
LOC: M ED 01:39
DX: F10.120 Alcohol abuse with intoxication, uncomplicated (principal); K74.60 Unspecified cirrhosis of liver; B19.20 Unspecified viral hepatitis C without hepatic coma; Z85.05 Personal history of malignant neoplasm of liver; Z79.899 Other long term (current) drug therapy
CPT/HCPCS: 51702; 70450; 80048; 80076; 82140; 82150; 83690; 85025; 85610; 85730; 86850; 86900; 86901; 93005; 93041; 96374; 99285; G0480; J1885

== ENCOUNTER 2019-05-06 03:55 | Emergency (ER) | payer MEDICARE, MEDICAID ==
[~2019-05-06] VITALS: Ht 170.2 cm; Wt 79.2 kg
[~2019-05-06 03:55] MED LIST changes: -ONDA-83 PO; +ONDA4TAB5 PO
[2019-05-06] MEDS ORDERED: ONDANSETRON 4 MG ORAL DISINTEGRATING TAB (Q0162 PER 1MG) PO ONE (05:15)
[2019-05-06] MEDS ORDERED: NS 1,000 ML IV ONE (06:15)
[2019-05-06 07:16] LABS: BASO # 0.1 10^3/uL (0.0-0.2); BASO % 0.6 % (0.0-1.0); EOS # 0.1 10^3/uL (0.0-0.50); EOS % 1.2 % (0.0-3.0); HEMATOCRIT 30.7 % (36.0-47.0); HEMOGLOBIN 10.3 g/dl (12.0-15.5); LYMPH # 2.4 10^3/uL (1.5-4.5); LYMPH % 27.7 % (24.0-44.0); MEAN CORPUSCULAR HEMOGLOBIN 32.9 pg (27.0-33.0); MEAN CORPUSCULAR HGB CONC 33.6 g/dl (32.0-36.5); MEAN CORPUSCULAR VOLUME 98.1 fl (80.0-96.0); MONO # 0.7 10^3/uL (0.0-0.8); MONO % 7.7 % (0.0-5.0); NEUTROPHILS # 5.3 10^3/uL (1.8-7.7); NEUTROPHILS % 62.3 % (36.0-66.0); PLATELET COUNT, AUTOMATED 124 10^3/uL (150-450); RED BLOOD COUNT 3.13 10^6/uL (4.00-5.40); WHITE BLOOD COUNT 8.5 10^3/uL (4.0-10.0)
[2019-05-06 07:35] LABS: AMPHETAMINES LEVEL URINE NEGATIVE (NEGATIVE); BARBITURATES URINE NEGATIVE (NEGATIVE); BENZODIAZEPINES URINE POSITIVE (NEGATIVE); CANNABINOIDS URINE NEGATIVE (NEGATIVE); COCAINE METABOLITE URINE NEGATIVE (NEGATIVE); METHADONE URINE NEGATIVE (NEGATIVE); OPIATES URINE NEGATIVE (NEGATIVE); PHENCYCLIDINE URINE NEGATIVE (NEGATIVE)
[2019-05-06 07:37] LABS: ALBUMIN 3.6 GM/DL (3.2-5.2); ALT/SGPT 21 U/L (12-78); BILIRUBIN,DIRECT 1.9 MG/DL (0.0-0.2); BLOOD UREA NITROGEN 13 MG/DL (7-18); CALCIUM LEVEL 8.3 MG/DL (8.5-10.1); CARBON DIOXIDE LEVEL 26 MEQ/L (21-32); CHLORIDE LEVEL 104 MEQ/L (98-107); CREATININE FOR GFR 0.64 MG/DL (0.55-1.30); ETHYL ALCOHOL (ETHANOL) 0.231 % (0.000-0.010); GLOMERULAR FILTRATION RATE > 60.0 (>51); GLUCOSE, FASTING 98 MG/DL (70-100); LIPASE 86 U/L (73-393); POTASSIUM SERUM 3.3 MEQ/L (3.5-5.1); SODIUM LEVEL 144 MEQ/L (136-145); TOTAL PROTEIN 6.8 GM/DL (6.4-8.2)
[2019-05-06 07:52] LABS: INR 1.71; PROTHROMBIN TIME 19.8 SECONDS (11.8-14.0)
[2019-05-06 07:53] LABS: PARTIAL THROMBOPLASTIN TIME 44.9 SECONDS (25.0-38.4)
[2019-05-06 07:55] LABS: D-DIMER QUANT 1809.32 ng/ml (<500)
[2019-05-06 08:06] LABS: CK-MB VALUE MASS < 1.0 NG/ML (<3.6); CPK CREATINE PHOSPHOKINASE 97 U/L (26-192); MB/CK RELATIVE INDEX 1.03 (< OR =4); TROPONIN I < 0.02 NG/ML (< 0.10)
[2019-05-06] MEDS ORDERED: METOCLOPRAMIDE INJ 10MG/2ML VIAL (J2765) IV ONE (08:15)
[2019-05-06 08:31] VITALS: BP 114/68
[2019-05-06] MEDS ORDERED: ISOVUE-370 76% 100ML VIAL (Q9967) As Ordered ONE (08:39)
--- NOTE | 2019-05-06 09:47 | ECGEPIP ---
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
== END 2019-05-06 09:33 | disposition left against medical advice (07) ==
LOC: M ED 03:55
DX: R10.9 Unspecified abdominal pain (principal); R11.10 Vomiting, unspecified; I45.19 Other right bundle-branch block; I10 Essential (primary) hypertension; K21.9 Gastro-esophageal reflux disease without esophagitis; B19.20 Unspecified viral hepatitis C without hepatic coma; K74.60 Unspecified cirrhosis of liver; F33.9 Major depressive disorder, recurrent, unspecified; F41.9 Anxiety disorder, unspecified; D61.818 Other pancytopenia; Z79.899 Other long term (current) drug therapy; F17.210 Nicotine dependence, cigarettes, uncomplicated
CPT/HCPCS: 80048; 80076; 80307; 81001; 82550; 82553; 83690; 84484; 85025; 85379; 85610; 85730; 87086; 93005; 96361; 96374; 99284; G0480; J2765; Q0162

== ENCOUNTER 2019-07-01 11:46 | Emergency (ER) | payer MEDICARE, MEDICAID ==
[~2019-07-01] VITALS: Ht 157.5 cm; Wt 77.0 kg
[2019-07-01 12:31] LABS: HEMATOCRIT 34.9 % (36.0-47.0); HEMOGLOBIN 11.6 g/dl (12.0-15.5); MEAN CORPUSCULAR HEMOGLOBIN 32.8 pg (27.0-33.0); MEAN CORPUSCULAR HGB CONC 33.2 g/dl (32.0-36.5); MEAN CORPUSCULAR VOLUME 98.6 fl (80.0-96.0); PLATELET COUNT, AUTOMATED 129 10^3/uL (150-450); RED BLOOD COUNT 3.54 10^6/uL (4.00-5.40); WHITE BLOOD COUNT 5.6 10^3/uL (4.0-10.0)
[2019-07-01] MEDS: NS 1,000 ML IV SCH ×2 (13:22→20:00)
[2019-07-01 13:48] LABS: ACETAMINOPHEN LEVEL < 2.0 UG/ML (10.0-30.0); ALBUMIN 3.7 GM/DL (3.2-5.2); ALT/SGPT 33 U/L (12-78); BILIRUBIN,DIRECT 1.4 MG/DL (0.0-0.2); BILIRUBIN,TOTAL 3.3 MG/DL (0.2-1.0); BLOOD UREA NITROGEN 9 MG/DL (7-18); CALCIUM LEVEL 8.5 MG/DL (8.5-10.1); CARBON DIOXIDE LEVEL 27 MEQ/L (21-32); CHLORIDE LEVEL 104 MEQ/L (98-107); CREATININE FOR GFR 0.75 MG/DL (0.55-1.30); ETHYL ALCOHOL (ETHANOL) 0.455 % (0.000-0.010); GLOMERULAR FILTRATION RATE > 60.0 (>51); GLUCOSE, FASTING 118 MG/DL (70-100); POTASSIUM SERUM 3.3 MEQ/L (3.5-5.1); SALICYLATE LEVEL < 1.7 MG/DL (5.0-30.0); SODIUM LEVEL 143 MEQ/L (136-145)
[2019-07-01] MEDS ORDERED: POTASSIUM CHLORIDE 10 MEQ SR TABLET PO ONE (14:00)
[2019-07-01 14:41] LABS: AMPHETAMINES LEVEL URINE NEGATIVE (NEGATIVE); BARBITURATES URINE NEGATIVE (NEGATIVE); BENZODIAZEPINES URINE NEGATIVE (NEGATIVE); CANNABINOIDS URINE NEGATIVE (NEGATIVE); COCAINE METABOLITE URINE NEGATIVE (NEGATIVE); METHADONE URINE NEGATIVE (NEGATIVE); OPIATES URINE NEGATIVE (NEGATIVE); PHENCYCLIDINE URINE NEGATIVE (NEGATIVE)
[2019-07-01 18:47] LABS: LIPASE 150 U/L (73-393)
[2019-07-01] MEDS ORDERED: ISOVUE-370 76% 100ML VIAL (Q9967) As Ordered ONE (19:11)
--- NOTE | 2019-07-01 20:39 | REPVR ---
EXAM: CT Abdomen and Pelvis With Contrast EXAM DATE/TIME: 07/01/2019 7:22 PM CLINICAL HISTORY: 48 years old, female; Abdominal pain; Generalized; Additional info: Gen abd pain TECHNIQUE: Imaging protocol: Computed tomography images of the abdomen and pelvis with intravenous contrast. Radiation optimization: All CT scans at this facility use at least one of these dose optimization techniques: automated exposure control; mA and/or kV adjustment per patient size (includes targeted exams where dose is matched to clinical indication); or iterative reconstruction. Contrast material: ISOVUE 370; Contrast volume: 100 ml; Contrast route: IV; COMPARISON: CT ABD PELVIS W/O FOL BY WIT 01/22/2019 8:34 AM FINDINGS: Liver: There are cysts in the liver measuring up to 2.3 cm in the left lobe. No complex features demonstrated. Mottled enhancement of the liver may be related to passive congestion.There is a diffuse decrease in hepatic parenchymal density, consistent with fatty infiltration.Examination of the liver demonstrates enlargement of the left and caudate lobes, findings consistent with cirrhosis. Gallbladder and bile ducts: Hydropic gallbladder with mild gallbladder wall thickening. No calculi demonstrated. Clinical correlation to exclude acalculus cholecystitis suggested. Pancreas: Normal. No ductal dilation. Spleen: Normal. No splenomegaly. Adrenals: Normal. No mass. Kidneys and ureters: Left renal cyst measures 13 mm. Stomach and bowel: Normal. No obstruction. No mucosal thickening. Appendix: Appendicoliths in the appendix which is otherwise unremarkable. Intraperitoneal space: See Soft Tissues Finding. Vasculature: Dilated IVC. The aorta demonstrates mild atherosclerotic calcification. Lymph nodes: Normal. No enlarged lymph nodes. Bladder: Unremarkable as visualized. Reproductive: Unremarkable as visualized. Bones/joints: Old nonunited rib fractures left ninth and 10th ribs. Soft tissues: Recanalized paraumbilical veins. Esophagogastric varices. Perisplenic varices. Right perihepatic and paracolic varices. IMPRESSION: 1. There are cysts in the liver measuring up to 2.3 cm in the left lobe. No complex features demonstrated. 2. Mottled enhancement of the liver may be related to passive congestion.There is a diffuse decrease in hepatic parenchymal density, consistent with fatty infiltration.Examination of the liver demonstrates enlargement of the left and caudate lobes, findings consistent with cirrhosis. 3. Hydropic gallbladder with mild gallbladder wall thickening. No calculi demonstrated. Clinical correlation to exclude acalculus cholecystitis suggested. Electronically signed by: Gibran Rivers On 07/01/2019 20:38:31 PM
[2019-07-01 23:34] VITALS: BP 136/76
--- NOTE | 2019-07-02 06:38 | ED PDOC ---
Post-Departure Follow-Up dr solorio faxed formal report of ct abd/p for fu Edwin Anthony MD Jul 02, 2019 06:38
== END 2019-07-01 23:36 | disposition home or self-care (01) ==
LOC: M ED 11:46 → EDBD 11:46 → M ED 23:36
DX: F10.229 Alcohol dependence with intoxication, unspecified (principal); Y90.2 Blood alcohol level of 40-59 mg/100 ml; I10 Essential (primary) hypertension; F31.9 Bipolar disorder, unspecified; R56.9 Unspecified convulsions; K21.9 Gastro-esophageal reflux disease without esophagitis; B19.20 Unspecified viral hepatitis C without hepatic coma; K74.60 Unspecified cirrhosis of liver; Z79.899 Other long term (current) drug therapy; F17.210 Nicotine dependence, cigarettes, uncomplicated
CPT/HCPCS: 36415; 51701; 74177; 80048; 80076; 80307; 83690; 84443; 85027; 96360; 96361; 99285; G0480; Q9967

== ENCOUNTER 2019-07-19 11:56 | Emergency (ER) | payer MEDICARE, MEDICAID ==
[2019-07-19 12:29] LABS: BASO # 0.1 10^3/uL (0.0-0.2); BASO % 1.4 % (0.0-1.0); EOS # 0.3 10^3/uL (0.0-0.5); EOS % 3.7 % (0.0-3.0); HEMATOCRIT 37.3 % (36.0-47.0); HEMOGLOBIN 12.7 g/dl (12.0-15.5); LYMPH # 4.4 10^3/uL (1.5-5.0); LYMPH % 63.1 % (24.0-44.0); MEAN CORPUSCULAR HEMOGLOBIN 33.8 pg (27.0-33.0); MEAN CORPUSCULAR VOLUME 99.2 fl (80.0-96.0); MONO # 0.6 10^3/uL (0.0-0.8); MONO % 8.7 % (0.0-5.0); NEUTROPHILS # 1.6 10^3/uL (1.5-8.5); NEUTROPHILS % 22.8 % (36.0-66.0); PLATELET COUNT, AUTOMATED 138 10^3/uL (150-450); RED BLOOD COUNT 3.76 10^6/uL (4.00-5.40)
--- NOTE | 2019-07-19 12:45 | REP ---
Portable chest x-ray: Single view. History: Dyspnea and cough. Comparison chest x-ray: April 12, 2019. Findings: Oxygen delivery tubing and EKG electrodes are seen. The lungs are symmetrically aerated and free of infiltrate. Pleural angles are sharp. Heart is not felt to be enlarged. Today's view is exposed at a slightly lesser level of inspiration. Impression: No active disease. Electronically Signed by Neil Hahn MD 07/19/2019 12:37 P
[2019-07-19 12:59] LABS: ALBUMIN 4.1 GM/DL (3.2-5.2); ALT/SGPT 37 U/L (12-78); BILIRUBIN,DIRECT 1.8 MG/DL (0.0-0.2); BLOOD UREA NITROGEN 8 MG/DL (7-18); CALCIUM LEVEL 9.1 MG/DL (8.5-10.1); CARBON DIOXIDE LEVEL 24 MEQ/L (21-32); CHLORIDE LEVEL 107 MEQ/L (98-107); CK-MB VALUE MASS 1.3 NG/ML (<3.6); CPK CREATINE PHOSPHOKINASE 224 U/L (26-192); CREATININE FOR GFR 0.73 MG/DL (0.55-1.30); ETHYL ALCOHOL (ETHANOL) 0.409 % (0.000-0.010); GLOMERULAR FILTRATION RATE > 60.0 (>51); GLUCOSE, FASTING 107 MG/DL (70-100); MB/CK RELATIVE INDEX 0.58 (< OR =4); SODIUM LEVEL 145 MEQ/L (136-145); TOTAL PROTEIN 7.3 GM/DL (6.4-8.2); TROPONIN I < 0.02 NG/ML (< 0.10)
[2019-07-19 13:27] LABS: ABG BASE EXCESS 0.4 (-2.0-2.0); ABG HCO3 23.7 MEQ/L (22.0-26.0); ABG O2 SATURATION 97.5 % (95.0-99.0); ABG PARTIAL PRESSURE CO2 33.9 mmHg (35.0-45.0); ABG PARTIAL PRESSURE O2 107.3 mmHg (75.0-100.0); ABG STANDARD HCO3 24.9 MEQ/L (22.0-26.0); ABG TOTAL CO2 24.8 MEQ/L (22.0-29.0); ABG pH (ARTERIAL) 7.463 UNITS (7.350-7.450)
[2019-07-19 15:23] VITALS: BP 140/75
--- NOTE | 2019-07-19 20:35 | ECGEPIP ---
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
== END 2019-07-19 15:22 | disposition home or self-care (01) ==
LOC: M ED 11:56
DX: F10.120 Alcohol abuse with intoxication, uncomplicated (principal); K75.9 Inflammatory liver disease, unspecified; K74.60 Unspecified cirrhosis of liver; K21.9 Gastro-esophageal reflux disease without esophagitis; Z79.899 Other long term (current) drug therapy
CPT/HCPCS: 36415; 36600; 71045; 80048; 80076; 82550; 82553; 82803; 84484; 85025; 93005; 93041; 99284; G0480

== ENCOUNTER 2019-09-17 12:50 | Inpatient (IN) | payer MEDICARE, MEDICAID ==
[~2019-09-17] VITALS: Ht 165.1 cm; Wt 77.5 kg
[2019-09-17] MEDS ORDERED: PANTOPRAZOLE 40MG INJ (PROTONIX) (C9113) IV ONE (13:00)
[2019-09-17] MEDS ORDERED: ONDANSETRON 4MG/2ML VIAL (J2405) IV ONE (13:00)
[2019-09-17] MEDS ORDERED: NS 1,000 ML IV ONE (13:00)
[2019-09-17 13:29] LABS: BASO % 0.6 % (0.0-1.0); EOS # 0.1 10^3/uL (0.0-0.5); EOS % 2.2 % (0.0-3.0); HEMATOCRIT 37.1 % (36.0-47.0); HEMOGLOBIN 12.1 g/dl (12.0-15.5); LYMPH # 2.3 10^3/uL (1.5-5.0); MEAN CORPUSCULAR HGB CONC 32.6 g/dl (32.0-36.5); MEAN CORPUSCULAR VOLUME 101.1 fl (80.0-96.0); MONO # 0.4 10^3/uL (0.0-0.8); MONO % 7.1 % (0.0-5.0); NEUTROPHILS # 2.1 10^3/uL (1.5-8.5); NEUTROPHILS % 42.5 % (36.0-66.0); RED BLOOD COUNT 3.67 10^6/uL (4.00-5.40); WHITE BLOOD COUNT 4.9 10^3/uL (4.0-10.0)
[2019-09-17 13:37] LABS: INR 1.56; PROTHROMBIN TIME 18.4 SECONDS (11.8-14.0)
[2019-09-17 14:14] LABS: ALT/SGPT 24 U/L (12-78); BILIRUBIN,DIRECT 1.9 MG/DL (0.0-0.2); BILIRUBIN,TOTAL 5.3 MG/DL (0.2-1.0); BLOOD UREA NITROGEN 7 MG/DL (7-18); CARBON DIOXIDE LEVEL 26 MEQ/L (21-32); CHLORIDE LEVEL 107 MEQ/L (98-107); CREATININE FOR GFR 0.74 MG/DL (0.55-1.30); ETHYL ALCOHOL (ETHANOL) 0.351 % (0.000-0.010); GLOMERULAR FILTRATION RATE > 60.0 (>51); GLUCOSE, FASTING 97 MG/DL (70-100); LIPASE 97 U/L (73-393); POTASSIUM SERUM 3.1 MEQ/L (3.5-5.1); SODIUM LEVEL 146 MEQ/L (136-145); TOTAL PROTEIN 7.6 GM/DL (6.4-8.2)
[2019-09-17 14:19] LABS: PLATELET COUNT, AUTOMATED 84 10^3/uL (150-450)
[2019-09-17] MEDS ORDERED: LORazepam 2 MG/ML VIAL (J2060) IV STA (14:21)
[2019-09-17] MEDS: KCL 10MEQ/100ML SWI (KRUN) 10 MEQ in IV 1 EA IV SCH ×3 (15:00→17:00)
--- NOTE | 2019-09-17 15:58 | HPEPDOC ---
General Date of Admission 09/17/19 Date of Service: Sep 17, 2019 Chief Complaint The patient is a 49-year-old female admitted with a reason for visit of Hemoptysis. Source: Patient, Family Exam Limitations: No limitations Timing/Duration: Other Severity: Moderate (1 month) Associated Symptoms: Other (, hematemesis) History of Present Illness 49 years old white female with past medical history of liver cirrhosis secondary to hepatitis C and alcoholism, chronic anemia, agoraphobia, bipolar disorder presented with chief complaints of vomiting blood since last 1 month. Is actively drinking and as per patient, she drinks a lot. Her last drink was 3 hours prior to coming to emergency room. Patient denies any chest pain, shortness of breath, nausea, vomiting or abdominal pain. Note: patient was admitted April of this year with a variceal bleed. Subsequently, she had one varices cauterized by Dr. Toth and she was discharged next day but patient never followed up with her PCP or GI as per instructions. Home Medications No Active Prescriptions or Reported Meds Allergies Coded Allergies: No Known Allergies (Unverified , 07/01/19) Past Medical History Medical History Alcohol cirrhosis, chronic anemia, agoraphobia, bipolar disorder, hepatitis C Surgical History Tubal ligation, carpal tunnel syndrome repair in right and Family History Significant Family History: No pertinent family hx Social History * Smoker: current smoker Alcohol: heavy Drugs: denies A-FIB/CHADSVASC A-FIB History Current/History of A-Fib/PAF?: No Review of Systems Constitutional: Denies: Chills, Fever, Malaise, Night Sweats, Weakness, Fatigue, Weight Loss, Lethargy, Other Eyes: Denies: Pain, Vision change, Conjunctivae inflammation, Eyelid inflammation, Redness, Other ENT: Denies: Head Aches, Ear Pain, Dysphagia, Sinus Congestion, Post Nasal Drip, Sore Throat, Epistaxis, Other Symptoms Skin: Denies: Rash, Lesions, Jaundice, Bruising, Itching, Dry, Breakdown, Nail Changes, Other Pulmonary: Denies: Dyspnea, Cough, Pleuritic Chest Pain, Other Symptoms Cardiovascular: Denies: Chest Pain, Palpitations, Orthopnea, Paroxysmal Noc. Dyspnea, Edema, Lt Headedness, Other Symptoms Gastrointestinal: Reports: Other Symptoms (. Hematemesis) Genitourinary: Denies: Dysuria, Frequency, Incontinence, Hematuria, Retention, Other Symptoms Hematologic: Denies: Bruising, Bleeding Excessively, Petecchia, Purpura, Enlarged Lymph Nodes, Other Hematologic Endocrine: Denies: Polydipsia, Polyphagia, Polyuria, Heat Intolerance, Cold Intolerance, Other Endocrine Sx Musculoskeletal: Denies: Neck Pain, Back Pain, Shoulder Pain, Arm Pain, Hand Pain, Leg Pain, Foot Pain, Joint Pain, Muscle Pain, Spasms, Other Symptoms Neurological: Denies: Weakness, Numbness, Incoordination, Change in speech, Confusion, Seizures, Other Symptoms Psych: Denies: Mood Normal, Anxiety, Depression, Memory Issues, Thoughts of Self Harm, Anger, Thoughts of Harming Other, Other Psych Physical Examination General Exam: Positive: Alert, Cooperative Eye Exam: Positive: PERRLA, Conjunctiva & lids normal ENT Exam: Positive: Atraumatic, Mucous membr. moist/pink Neck Exam: Positive: Supple Chest Exam: Positive: Clear to auscultation, Normal air movement Heart Exam: Positive: Rate Normal, Normal S1 Abdomen Exam: Positive: Normal bowel sounds, Soft, Tenderness, Other (. NG tube in place which has been draining blood and gastric contents) Extremity Exam: Positive: Normal pulses Skin Exam: Positive: Nl turgor and temperature Neuro Exam: Positive: Strength at 5/5 X4 ext, Sensation Intact Psych Exam: Positive: Anxiety, Oriented x 3 Vital Signs Vital Signs Date Time Temp Pulse Resp B/P (MAP) Pulse Ox O2 Delivery O2 Flow Rate FiO2 09/17/19 13:50 97 09/17/19 13:31 116/98 (104) 09/17/19 13:20 97 09/17/19 13:03 97.3 18 Room Air Laboratory Data Labs 24H Laboratory Tests 2 09/17/19 13:09: Immature Granulocyte % (Auto) 1.6, Neutrophils (%) (Auto) 42.5, Lymphocytes (%) (Auto) 46.0H, Monocytes (%) (Auto) 7.1H, Eosinophils (%) (Auto) 2.2, Basophils (%) (Auto) 0.6, Neutrophils # (Auto) 2.1, Lymphocytes # (Auto) 2.3, Monocytes # (Auto) 0.4, Eosinophils # (Auto) 0.1, Basophils # (Auto) 0.0, Nucleated Red Blood Cells % (auto) 0.0, Immature Platelet Fraction 2.3, Prothrombin Time 18.4H, Prothromb Time International Ratio 1.56, Anion Gap 13, Glomerular Filtration Rate > 60.0, Calcium Level 9.0, Total Bilirubin 5.3H, Direct Bilirubin 1.9H, Aspartate Amino Transf (AST/SGOT) 76H, Alanine Aminotransferase (ALT/SGPT) 24, Alkaline Phosphatase 158H, Total Protein 7.6, Albumin 4.0, Albumin/Globulin Ratio 1.11, Lipase 97, Ethyl Alcohol Level 0.351H CBC/BMP Laboratory Tests 09/17/19 13:09 Microbiology Microbiology 09/17/19 Occult Blood - Final, Complete Problems (1) Hematemesis Problem Text: 49 years old white female with past medical history of alcohol abuse, alcohol liver disease, hepatitis C in April she had a very subtle bleed cauterized at this hospital, but she never followed up with her primary care or GI and again she is been complaining of vomiting blood since last 1 month and today she decided to come in with above complaint. Patient was admitted with upper GI bleed. She denies any other complaints at the present time. Admit patient to PCU Telemetry monitoring Monitor H&H Orthotics 40 mg IV every 12 hours Octreotide drip drip as per orders Type and screen Transfuse blood if H&H drops under 7 GI consult was called from ED DVT prophylaxis with bilateral SCDs Nothing by mouth except ice chips Continue NG suctioning (2) Alcoholic liver failure Status: Acute Problem Text: We'll closely monitor patient's LFTs and ammonia level. If there is any change in mental medical status (3) Cirrhosis of liver Status: Acute (4) History of hepatitis C Status: Acute (5) Alcohol abuse Status: Acute Problem Text: CIWA protocol has been initiated due to the patient's last drink was 3 hours Plan / VTE VTE Prophylaxis Ordered?: Yes VINNY FIGUEROA MD Sep 17, 2019 15:58
[2019-09-17] MEDS ORDERED: LORazepam 2 MG TAB PO PRN (16:00)
[2019-09-17] MEDS: NS 1,000 ML IV SCH (16:03)
[2019-09-17 20:00] VITALS: BP 124/60
[2019-09-17] MEDS ORDERED: ROPI0.5T PO (20:47)
[2019-09-17] MEDS ORDERED: ONDA4TAB5 PO (20:47)
[2019-09-17] MEDS ORDERED: COMMENTS (20:47)
[2019-09-17] MEDS: PANTOPRAZOLE 40MG INJ (PROTONIX) (C9113) IV SCH (21:21)
[2019-09-17] MEDS: NICOTINE 21MG/24HR 1 EA TRANSDERMAL TD SCH (21:21)
[2019-09-17] MEDS: OCTREOTIDE ACETATE 1,200 MCG in NS 238.8 ML IV SCH (21:22)
[2019-09-17] MEDS ORDERED: KETOROLAC 30 MG/ML VIAL (J1885) IV ONE (22:00)
[2019-09-18] VITALS (11 sets, daily range): BP systolic 114–135; BP diastolic 58–74
[2019-09-18] MEDS: NS 1,000 ML IV SCH ×3 (03:12→21:21)
[2019-09-18] MEDS: CHLORASEPTIC SPRAY MT PRN ×3 (03:14→08:23)
[2019-09-18 05:59] LABS: HEMATOCRIT 29.8 % (36.0-47.0); MEAN CORPUSCULAR HGB CONC 31.9 g/dl (32.0-36.5); MEAN CORPUSCULAR VOLUME 103.5 fl (80.0-96.0); RED BLOOD COUNT 2.88 10^6/uL (4.00-5.40); WHITE BLOOD COUNT 3.2 10^3/uL (4.0-10.0)
[2019-09-18 06:20] LABS: HEMOGLOBIN 9.5 g/dl (12.0-15.5)
[2019-09-18 06:21] LABS: PLATELET COUNT, AUTOMATED 45 10^3/uL (150-450)
[2019-09-18 06:25] LABS: ALBUMIN 3.1 GM/DL (3.2-5.2); ALT/SGPT 20 U/L (12-78); BILIRUBIN,TOTAL 5.8 MG/DL (0.2-1.0); BLOOD UREA NITROGEN 7 MG/DL (7-18); CARBON DIOXIDE LEVEL 24 MEQ/L (21-32); CHLORIDE LEVEL 107 MEQ/L (98-107); CREATININE FOR GFR 0.62 MG/DL (0.55-1.30); GLOMERULAR FILTRATION RATE > 60.0 (>51); GLUCOSE, FASTING 67 MG/DL (70-100); MAGNESIUM LEVEL 1.4 MG/DL (1.8-2.4); POTASSIUM SERUM 3.6 MEQ/L (3.5-5.1); SODIUM LEVEL 142 MEQ/L (136-145); TOTAL PROTEIN 6.3 GM/DL (6.4-8.2)
[2019-09-18] MEDS: PANTOPRAZOLE 40MG INJ (PROTONIX) (C9113) IV SCH ×2 (08:23→20:07)
[2019-09-18] MEDS: NICOTINE 21MG/24HR 1 EA TRANSDERMAL TD SCH (08:24)
[2019-09-18] MEDS: LORazepam 2 MG/ML VIAL (J2060) IV PRN ×2 (09:46→23:20)
--- NOTE | 2019-09-18 12:58 | IPNPDOC ---
Subjective Date Seen The patient was seen on 09/18/19. Subjective Chief Complaint/HPI Patient is very small amount of blood being drained from NG tube now offers no other complaints. Has been started on CIWA protocol General: Denies: ROS Unobtainable, Chills, Night Sweats, Fatigue, Malaise, Normal Appetite, Other Symptoms Constitutional: Denies: Chills, Fever, Malaise, Night Sweats, Weakness, Fatigue, Weight Loss, Lethargy, Other Eyes: Denies: Pain, Vision change, Conjunctivae inflammation, Eyelid inflammation, Redness, Other Skin: Denies: Rash, Lesions, Jaundice, Bruising, Itching, Dry, Breakdown, Nail Changes, Other Pulmonary: Denies: Dyspnea, Cough, Pleuritic Chest Pain, Other Symptoms Gastrointestinal: Denies: Nausea, Vomiting, Abdominal Pain, Diarrhea, Constipation, Melena, Hematochezia, Other Symptoms Genitourinary: Denies: Dysuria, Frequency, Incontinence, Hematuria, Retention, Other Symptoms Musculoskeletal: Denies: Neck Pain, Back Pain, Shoulder Pain, Arm Pain, Hand Pain, Leg Pain, Foot Pain, Joint Pain, Muscle Pain, Spasms, Other Symptoms Neurological: Denies: Weakness, Numbness, Incoordination, Change in speech, Confusion, Seizures, Other Symptoms Objective Physical Examination ENT Exam: Positive: Atraumatic, Mucous membr. moist/pink Neck Exam: Positive: Supple Chest Exam: Positive: Clear to auscultation, Normal air movement Heart Exam: Positive: Rate Normal, Normal S1 Abdomen Exam: Positive: Normal bowel sounds, Soft, Tenderness, Other (. NG tube in place which has been draining blood and gastric contents) Extremity Exam: Positive: Normal pulses Skin Exam: Positive: Nl turgor and temperature Neuro Exam: Positive: Strength at 5/5 X4 ext, Sensation Intact Assessment /Plan Problems (1) Hematemesis Status: Acute Problem Text: Hematemesis, most likely secondary to upper GI bleed secondary to variceal bleed. Patient is active and heavy drinker recently had the one variceal bleed cauterized about 2 [address] with [address] Parks Keep patient nothing by mouth today EGD in a.m. Her INR is relatively high. We'll try to give vitamin K, but most likely reason for her INR is liver failure. I doubt the vitamin K will help with any decrease in the INR Patient is presently not bleeding. There are clear gastric secretions in the NG tube Continue Protonix Continue NG suction Continue present meds (2) Cirrhosis of liver Status: Acute Problem Text: Cirrhosis of liver secondary to heavy drinking Continue present care (3) History of hepatitis C Status: Acute (4) Alcohol abuse Status: Acute Problem Text: IV fluids Benzodiazepines as per [facility] protocol Plan/VTE VTE Prophylaxis Ordered?: Yes VS, I&O, 24H, Fishbone Vital Signs/I&O Vital Signs Date Time Temp Pulse Resp B/P (MAP) Pulse Ox O2 Delivery O2 Flow Rate FiO2 09/18/19 12:00 98.7 101 18 125/68 (87) 97 09/18/19 07:52 Room Air I&O- Last 24 Hours up to 6 AM 09/18/19 06:00 Intake Total 2400 ml Output Total 650 ml Balance 1750 ml Laboratory Data 24H LABS Laboratory Tests 2 09/17/19 13:09: Immature Granulocyte % (Auto) 1.6, Neutrophils (%) (Auto) 42.5, Lymphocytes (%) (Auto) 46.0H, Monocytes (%) (Auto) 7.1H, Eosinophils (%) (Auto) 2.2, Basophils (%) (Auto) 0.6, Neutrophils # (Auto) 2.1, Lymphocytes # (Auto) 2.3, Monocytes # (Auto) 0.4, Eosinophils # (Auto) 0.1, Basophils # (Auto) 0.0, Nucleated Red Blood Cells % (auto) 0.0, Immature Platelet Fraction 2.3, Prothrombin Time 18.4H, Prothromb Time International Ratio 1.56, Anion Gap 13, Glomerular Filtration Rate > 60.0, Calcium Level 9.0, Total Bilirubin 5.3H, Direct Bilirubin 1.9H, Aspartate Amino Transf (AST/SGOT) 76H, Alanine Aminotransferase (ALT/SGPT) 24, Alkaline Phosphatase 158H, Total Protein 7.6, Albumin 4.0, Albumin/Globulin Ratio 1.11, Lipase 97, Ethyl Alcohol Level 0.351H 09/18/19 05:36: Nucleated Red Blood Cells % (auto) 0.0, Anion Gap 11, Glomerular Filtration Rate > 60.0, Calcium Level 8.0L, Total Bilirubin 5.8H, Aspartate Amino Transf (AST/SGOT) 70H, Alanine Aminotransferase (ALT/SGPT) 20, Alkaline Phosphatase 124H, Total Protein 6.3L, Albumin 3.1#L, Albumin/Globulin Ratio 0.97L, Magnesium Level 1.4L CBC/BMP Laboratory Tests 09/17/19 13:09 09/18/19 05:36 Microbiology Microbiology 09/17/19 Occult Blood - Final, Complete VINNY FIGUEROA MD Sep 18, 2019 12:58
[2019-09-18] MEDS ORDERED: PHYTONADIONE INJection 10 MG in NS 50 ML IV ONE ×3 (13:00→15:00)
[2019-09-18] MEDS: OCTREOTIDE ACETATE 1,200 MCG in NS 238.8 ML IV SCH (20:07)
[2019-09-18] MEDS ORDERED: CEPACOL LOZENGE PO PRN (20:30)
[2019-09-19] VITALS (14 sets, daily range): BP systolic 120–148; BP diastolic 66–75; O2SAT 91–96
[2019-09-19 06:20] LABS: BASO % 0.9 % (0.0-1.0); EOS # 0.1 10^3/uL (0.0-0.5); EOS % 3.1 % (0.0-3.0); HEMATOCRIT 28.3 % (36.0-47.0); HEMOGLOBIN 9.2 g/dl (12.0-15.5); LYMPH # 0.8 10^3/uL (1.5-5.0); LYMPH % 34.8 % (24.0-44.0); MEAN CORPUSCULAR HEMOGLOBIN 33.2 pg (27.0-33.0); MEAN CORPUSCULAR HGB CONC 32.5 g/dl (32.0-36.5); MEAN CORPUSCULAR VOLUME 102.2 fl (80.0-96.0); MONO # 0.2 10^3/uL (0.0-0.8); MONO % 7.1 % (0.0-5.0); NEUTROPHILS # 1.2 10^3/uL (1.5-8.5); NEUTROPHILS % 53.2 % (36.0-66.0); RED BLOOD COUNT 2.77 10^6/uL (4.00-5.40); WHITE BLOOD COUNT 2.2 10^3/uL (4.0-10.0)
[2019-09-19 06:25] LABS: INR 1.75; PROTHROMBIN TIME 20.1 SECONDS (11.8-14.0)
[2019-09-19 06:40] LABS: ALBUMIN 2.9 GM/DL (3.2-5.2); ALT/SGPT 19 U/L (12-78); BILIRUBIN,TOTAL 7.4 MG/DL (0.2-1.0); BLOOD UREA NITROGEN 9 MG/DL (7-18); CALCIUM LEVEL 7.5 MG/DL (8.5-10.1); CARBON DIOXIDE LEVEL 26 MEQ/L (21-32); CHLORIDE LEVEL 103 MEQ/L (98-107); CREATININE FOR GFR 0.66 MG/DL (0.55-1.30); GLOMERULAR FILTRATION RATE > 60.0 (>51); GLUCOSE, FASTING 78 MG/DL (70-100); POTASSIUM SERUM 3.6 MEQ/L (3.5-5.1); SODIUM LEVEL 137 MEQ/L (136-145); TOTAL PROTEIN 5.9 GM/DL (6.4-8.2)
[2019-09-19 06:54] LABS: PLATELET COUNT, AUTOMATED 29 10^3/uL (150-450)
[2019-09-19] MEDS: NS 1,000 ML IV SCH (07:05)
[2019-09-19] MEDS: NICOTINE 21MG/24HR 1 EA TRANSDERMAL TD SCH (09:35)
[2019-09-19] MEDS: PANTOPRAZOLE 40MG INJ (PROTONIX) (C9113) IV SCH (09:35)
--- NOTE | 2019-09-19 11:28 | IPNPDOC ---
Subjective Date Seen The patient was seen on 09/19/19. Subjective Chief Complaint/HPI Patient has no more bleeding per NG tube and she is scheduled for EGD today General: Denies: ROS Unobtainable, Chills, Night Sweats, Fatigue, Malaise, Normal Appetite, Other Symptoms Constitutional: Denies: Chills, Fever, Malaise, Night Sweats, Weakness, Fatigue, Weight Loss, Lethargy, Other Pulmonary: Denies: Dyspnea, Cough, Pleuritic Chest Pain, Other Symptoms Cardiovascular: Denies: Chest Pain, Palpitations, Orthopnea, Paroxysmal Noc. Dyspnea, Edema, Lt Headedness, Other Symptoms Gastrointestinal: Reports: Other Symptoms (. No more vomiting or bleeding per GI) Musculoskeletal: Denies: Neck Pain, Back Pain, Shoulder Pain, Arm Pain, Hand Pain, Leg Pain, Foot Pain, Joint Pain, Muscle Pain, Spasms, Other Symptoms Neurological: Denies: Weakness, Numbness, Incoordination, Change in speech, Confusion, Seizures, Other Symptoms Objective Physical Examination ENT Exam: Positive: Atraumatic, Mucous membr. moist/pink Neck Exam: Positive: Supple Chest Exam: Positive: Clear to auscultation, Normal air movement Heart Exam: Positive: Rate Normal, Normal S1 Abdomen Exam: Positive: Normal bowel sounds, Soft Extremity Exam: Positive: Normal pulses Skin Exam: Positive: Nl turgor and temperature Neuro Exam: Positive: Strength at 5/5 X4 ext, Sensation Intact Assessment /Plan Problems (1) Hematemesis Status: Acute Problem Text: Hematemesis, most likely secondary to upper GI bleed secondary to variceal bleed. Patient is active and heavy drinker recently had the one variceal bleed cauterized about 2 months ago. NG tube does not show any more active bleeding. We will possibly DC'd after EGD Patient is scheduled for EGD today Continue PPIs Monitor H&H Further, as per GIs recommendations (2) Cirrhosis of liver Status: Acute Problem Text: Cirrhosis of liver secondary to heavy drinking Continue present care (3) Alcohol abuse Status: Acute Problem Text: Will DC IV fluid when she is by mouth fluids and food Benzodiazepines as per CIWA protocol (4) History of hepatitis C Status: Acute (5) Thrombocytopenia Status: Chronic Problem Text: Thrombocytopenia, most likely secondary to alcoholism pt's platelet count is 29,000 today , We will transfuse 1 unit of platelets today before the EGD cbc in am Plan/VTE VTE Prophylaxis Ordered?: Yes VS, I&O, 24H, Fishbone Vital Signs/I&O Vital Signs Date Time Temp Pulse Resp B/P (MAP) Pulse Ox O2 Delivery O2 Flow Rate FiO2 09/19/19 11:17 98.7 78 18 130/66 97 Room Air I&O- Last 24 Hours up to 6 AM 09/19/19 05:59 Intake Total 2471 ml Output Total 460 ml Balance 2011 ml Laboratory Data 24H LABS Laboratory Tests 2 09/19/19 05:47: Immature Granulocyte % (Auto) 0.9, Neutrophils (%) (Auto) 53.2, Lymphocytes (%) (Auto) 34.8, Monocytes (%) (Auto) 7.1H, Eosinophils (%) (Auto) 3.1H, Basophils (%) (Auto) 0.9, Neutrophils # (Auto) 1.2L, Lymphocytes # (Auto) 0.8L, Monocytes # (Auto) 0.2, Eosinophils # (Auto) 0.1, Basophils # (Auto) 0.0, Nucleated Red Blood Cells % (auto) 0.0, Immature Platelet Fraction 4.1, Prothrombin Time 20.1H, Prothromb Time International Ratio 1.75, Anion Gap 8, Glomerular Filtration Rate > 60.0, Calcium Level 7.5L, Total Bilirubin 7.4H, Aspartate Amino Transf (AST/SGOT) 67H, Alanine Aminotransferase (ALT/SGPT) 19, Alkaline Phosphatase 101, Total Protein 5.9L, Albumin 2.9L, Albumin/Globulin Ratio 0.97L CBC/BMP Laboratory Tests 09/19/19 05:47 Microbiology Microbiology 09/17/19 Occult Blood - Final, Complete VINNY FIGUEROA MD Sep 19, 2019 11:28
--- NOTE | 2019-09-19 15:03 | DS.PDOC ---
Discharge Summary General Date of Admission Sep 17, 2019 at 15:40 Date of Discharge 09/19/19 Discharge Summary PROCEDURES PERFORMED DURING STAY: None. ADMITTING DIAGNOSES: 1. Upper GI bleed. DISCHARGE DIAGNOSES: 1. Upper GI bleed, liver cirrhosis, hepatitis C, alcohol exam, chronic anemia, gargle phobia, bipolar disorder. COMPLICATIONS/CHIEF COMPLAINT: Upper Gi Bleed. HISTORY OF PRESENT ILLNESS: 49 years old white female with past medical history of liver cirrhosis secondary to hepatitis C and alcoholism, chronic anemia, agoraphobia, bipolar disorder presented with chief complaints of vomiting blood since last 1 month. Is actively drinking and as per patient, she drinks a lot. Her last drink was 3 hours prior to coming to emergency room. Patient denies any chest pain, shortness of breath, nausea, vomiting or abdominal pain. Note: patient was admitted April of this year with a variceal bleed. Subsequently, she had one varices cauterized by Dr. Toth and she was discharged next day but patient never followed up with her PCP or GI as per instructions.. HOSPITAL COURSE: Patient was admitted with upper GI bleed, most likely variceal bleed secondary to alcoholism. Patient had a 1 variceal bleed, rise about 2 months ago but has been continuously drinking alcohol. Zainab, hematemesis. Patient was kept NG tube nothing by mouth IV fluids were started. Also NG tube was placed in. Patient was seen by Dr. Parks and was scheduled for EGD today. She decided to sign out AMA and leave AGAINST MEDICAL ADVICE. Patient is aware about all the risks of not getting proper care, including massive hemorrhage and .. DISCHARGE MEDICATIONS: Please see below. ALLERGIES: Please see below. PHYSICAL EXAMINATION ON DISCHARGE: VITAL SIGNS: Please see below. GENERAL: Patient sign out AMA HEENT: NECK: CARDIOVASCULAR EXAMINATION: RESPIRATORY EXAMINATION: ABDOMINAL EXAMINATION: EXTREMITIES: SKIN: NEUROLOGICAL EXAMINATION: PSYCHIATRIC EXAMINATION: LABORATORY DATA: Please see below. IMAGING: Not applicable PROGNOSIS: [Not applicable ACTIVITY: As tolerated. DIET: Signed out AMA DISCHARGE PLAN: Signed out AMA DISPOSITION: 07 Against Medical Advice. DISCHARGE INSTRUCTIONS: 1. Signed out out AMA. ITEMS TO FOLLOWUP ON ON OUTPATIENT: 1. Signed out AMA. DISCHARGE CONDITION: AGAINST MEDICAL ADVICE. TIME SPENT ON DISCHARGE: 15 minutes Vital Signs/I&Os Vital Signs Date Time Temp Pulse Resp B/P (MAP) Pulse Ox O2 Delivery O2 Flow Rate FiO2 09/19/19 12:34 99.0 83 18 142/70 97 Room Air I&O- Last 24 Hours up to 6 AM 09/19/19 06:00 Intake Total 2691 ml Output Total 510 ml Balance 2181 ml Laboratory Data Labs 24H Laboratory Tests 2 09/19/19 05:47: Immature Granulocyte % (Auto) 0.9, Neutrophils (%) (Auto) 53.2, Lymphocytes (%) (Auto) 34.8, Monocytes (%) (Auto) 7.1H, Eosinophils (%) (Auto) 3.1H, Basophils (%) (Auto) 0.9, Neutrophils # (Auto) 1.2L, Lymphocytes # (Auto) 0.8L, Monocytes # (Auto) 0.2, Eosinophils # (Auto) 0.1, Basophils # (Auto) 0.0, Nucleated Red Blood Cells % (auto) 0.0, Immature Platelet Fraction 4.1, Prothrombin Time 20.1H, Prothromb Time International Ratio 1.75, Anion Gap 8, Glomerular Filtrati on Rate > 60.0, Calcium Level 7.5L, Total Bilirubin 7.4H, Aspartate Amino Transf (AST/SGOT) 67H, Alanine Aminotransferase (ALT/SGPT) 19, Alkaline Phosphatase 101, Total Protein 5.9L, Albumin 2.9L, Albumin/Globulin Ratio 0.97L CBC/BMP Laboratory Tests 09/19/19 05:47 Microbiology Microbiology 09/17/19 Occult Blood - Final, Complete Discharge Medications Scheduled PRN Ondansetron HCl (Ondansetron HCl) 4 Mg Tablet, 4 MG PO Q6H PRN for NAUSEA OR VOMITING, (Reported) Ropinirole HCl (Ropinirole HCl) 0.5 Mg Tablet, 0.5 MG PO QHS PRN for LEG CRAMPS, (Reported) Miscellaneous Medications [Comments] , (Reported) PT IS VERY CONFUSED ABOUT MEDICATIONS. SHE STATES SHE IS ON 6 DIFFERENT ONES BUT CAN ONLY REMEMBER 2. I USED HER EXTERNAL MED HISTORY WELL HER COMMENTS. Allergies Coded Allergies: No Known Allergies (Unverified , 07/01/19) VINNY FIGUEROA MD Sep 19, 2019 15:03
== END 2019-09-19 14:00 | disposition left against medical advice (07) | DRG 432 ==
LOC: EDBD 12:50 → M ED 12:50 → M ED INP 15:40 → M PCU 19:56
PROVIDERS: ADMIT Internal Medicine; ATTEND Internal Medicine
DX: K70.40 Alcoholic hepatic failure without coma (principal); I85.11 Secondary esophageal varices with bleeding; K70.30 Alcoholic cirrhosis of liver without ascites; K70.10 Alcoholic hepatitis without ascites; D64.9 Anemia, unspecified; F40.00 Agoraphobia, unspecified; F31.9 Bipolar disorder, unspecified; F17.210 Nicotine dependence, cigarettes, uncomplicated; F10.20 Alcohol dependence, uncomplicated; B19.20 Unspecified viral hepatitis C without hepatic coma

== ENCOUNTER 2019-09-28 21:22 | Emergency (ER) | payer MEDICARE, MEDICAID ==
[~2019-09-28] VITALS: Ht 165.1 cm; Wt 63.6 kg
[~2019-09-28 21:22] MED LIST changes: +COMMENTS
[2019-09-28] MEDS ORDERED: chlorproMAZINE INJ 50MG/2ML AMP (J3230) IM STA (21:32)
[2019-09-28] MEDS ORDERED: diphenhydrAMINE INJ 50MG/ML VIAL (J1200) IM ONE (21:45)
[2019-09-28 22:10] LABS: HEMATOCRIT 36.7 % (36.0-47.0); HEMOGLOBIN 11.8 g/dl (12.0-15.5); MEAN CORPUSCULAR HEMOGLOBIN 32.9 pg (27.0-33.0); MEAN CORPUSCULAR HGB CONC 32.2 g/dl (32.0-36.5); MEAN CORPUSCULAR VOLUME 102.2 fl (80.0-96.0); PLATELET COUNT, AUTOMATED 140 10^3/uL (150-450); RED BLOOD COUNT 3.59 10^6/uL (4.00-5.40); WHITE BLOOD COUNT 6.4 10^3/uL (4.0-10.0)
[2019-09-28 22:42] LABS: ACETAMINOPHEN LEVEL < 2.0 UG/ML (10.0-30.0); ALBUMIN 3.7 GM/DL (3.2-5.2); ALT/SGPT 38 U/L (12-78); BILIRUBIN,TOTAL 4.3 MG/DL (0.2-1.0); BLOOD UREA NITROGEN 6 MG/DL (7-18); CALCIUM LEVEL 8.3 MG/DL (8.5-10.1); CARBON DIOXIDE LEVEL 26 MEQ/L (21-32); CHLORIDE LEVEL 111 MEQ/L (98-107); CREATININE FOR GFR 0.73 MG/DL (0.55-1.30); ETHYL ALCOHOL (ETHANOL) 0.428 % (0.000-0.010); GLOMERULAR FILTRATION RATE > 60.0 (>51); GLUCOSE, FASTING 114 MG/DL (70-100); POTASSIUM SERUM 3.2 MEQ/L (3.5-5.1); SALICYLATE LEVEL < 1.7 MG/DL (5.0-30.0); SODIUM LEVEL 149 MEQ/L (136-145); TOTAL PROTEIN 7.4 GM/DL (6.4-8.2)
[2019-09-28] MEDS ORDERED: NS 500 ML IV ONE (22:45)
[2019-09-29] MEDS ORDERED: OLANZapine INTRAMUSCULAR 10 MG VIAL (S0166) IM ONE
[2019-09-29 00:10] LABS: AMPHETAMINES LEVEL URINE NEGATIVE (NEGATIVE); BARBITURATES URINE NEGATIVE (NEGATIVE); BENZODIAZEPINES URINE NEGATIVE (NEGATIVE); CANNABINOIDS URINE NEGATIVE (NEGATIVE); COCAINE METABOLITE URINE NEGATIVE (NEGATIVE); METHADONE URINE NEGATIVE (NEGATIVE); OPIATES URINE NEGATIVE (NEGATIVE); PHENCYCLIDINE URINE NEGATIVE (NEGATIVE)
[2019-09-29] MEDS ORDERED: HALOPERIDOL 5 MG/ML VIAL (J1630) IM STA (01:32)
[2019-09-29] MEDS ORDERED: NS 1,000 ML IV ONE (07:15)
[2019-09-29 08:30] VITALS: BP 113/56; O2SAT 98
[2019-10-08] MEDS ORDERED: PANT40TA3 PO (12:13)
[2019-10-08] MEDS ORDERED: LACT10SO3 PO (12:13)
[2019-10-08] MEDS ORDERED: FOLI1TAB11 PO (12:13)
== END 2019-09-29 08:58 | disposition home or self-care (01) ==
LOC: M ED 21:22
DX: F10.220 Alcohol dependence with intoxication, uncomplicated (principal); K70.30 Alcoholic cirrhosis of liver without ascites; Z79.899 Other long term (current) drug therapy
CPT/HCPCS: 80048; 80076; 80307; 84443; 85027; 96360; 96372; 99285; G0480; J1200; J1630; J3230

== ENCOUNTER → 2019-10-09 | Day surgery (SDC) | payer MEDICARE, MEDICAID ==
[~2019-10-09] VITALS: Ht 165.1 cm; Wt 72.6 kg
[~2019-10-09] MED LIST changes: +LIDOCAINE 2% INJ 100 MG/5 ML SDV (FOR ANES.) As Ordered ONE; +NS 1,000 ML IV ONE; +NS 1,000 ML IV SCH; +PANT40TA3 PO; +PROPOFOL 200 MG/20 ML VIAL As Ordered ONE
== END | disposition home or self-care (01) ==
LOC: M OPP 09:27
PROVIDERS: ATTEND Internal Medicine Gastroenterology
DX: K62.5 Hemorrhage of anus and rectum (principal); Z53.09 Procedure and treatment not carried out because of other contraindication

== ENCOUNTER → 2019-10-24 | Outpatient (CLI) | payer MEDICARE, MEDICAID ==
[~2019-10-24] MED LIST changes: -LIDOCAINE 2% INJ 100 MG/5 ML SDV (FOR ANES.) As Ordered ONE; -NS 1,000 ML IV ONE; -NS 1,000 ML IV SCH; -PROPOFOL 200 MG/20 ML VIAL As Ordered ONE
[2019-10-24 13:51] LABS: HEMATOCRIT 34.4 % (36.0-47.0); HEMOGLOBIN 10.8 g/dl (12.0-15.5); MEAN CORPUSCULAR HEMOGLOBIN 33.2 pg (27.0-33.0); MEAN CORPUSCULAR HGB CONC 31.4 g/dl (32.0-36.5); MEAN CORPUSCULAR VOLUME 105.8 fl (80.0-96.0); RED BLOOD COUNT 3.25 10^6/uL (4.00-5.40)
[2019-10-24 13:56] LABS: PLATELET COUNT, AUTOMATED 66 10^3/uL (150-450)
[2019-10-24 14:22] LABS: ALBUMIN 3.3 GM/DL (3.2-5.2); ALT/SGPT 17 U/L (12-78); BILIRUBIN,TOTAL 4.3 MG/DL (0.2-1.0); BLOOD UREA NITROGEN 8 MG/DL (7-18); CALCIUM LEVEL 8.6 MG/DL (8.5-10.1); CARBON DIOXIDE LEVEL 25 MEQ/L (21-32); CHLORIDE LEVEL 105 MEQ/L (98-107); CREATININE FOR GFR 0.69 MG/DL (0.55-1.30); GLOMERULAR FILTRATION RATE > 60.0 (>51); GLUCOSE, FASTING 94 MG/DL (70-100); POTASSIUM SERUM 3.5 MEQ/L (3.5-5.1); SODIUM LEVEL 139 MEQ/L (136-145); TOTAL PROTEIN 6.5 GM/DL (6.4-8.2)
== END ==
LOC: M LAB 13:10
PROVIDERS: ATTEND Family Medicine
DX: K70.30 Alcoholic cirrhosis of liver without ascites (principal)

== ENCOUNTER 2019-10-31 19:26 | Emergency (ER) | payer MEDICARE, MEDICAID ==
[~2019-10-31] VITALS: Ht 165.1 cm; Wt 72.7 kg
[2019-10-31 20:16] LABS: HEMATOCRIT 37.5 % (36.0-47.0); HEMOGLOBIN 11.9 g/dl (12.0-15.5); MEAN CORPUSCULAR HEMOGLOBIN 32.4 pg (27.0-33.0); MEAN CORPUSCULAR HGB CONC 31.7 g/dl (32.0-36.5); MEAN CORPUSCULAR VOLUME 102.2 fl (80.0-96.0); PLATELET COUNT, AUTOMATED 126 10^3/uL (150-450); RED BLOOD COUNT 3.67 10^6/uL (4.00-5.40); WHITE BLOOD COUNT 7.5 10^3/uL (4.0-10.0)
[2019-10-31 21:00] LABS: ACETAMINOPHEN LEVEL < 2.0 UG/ML (10.0-30.0); ALBUMIN 3.7 GM/DL (3.2-5.2); ALT/SGPT 23 U/L (12-78); BILIRUBIN,DIRECT 1.6 MG/DL (0.0-0.2); BLOOD UREA NITROGEN 9 MG/DL (7-18); CALCIUM LEVEL 8.5 MG/DL (8.5-10.1); CARBON DIOXIDE LEVEL 25 MEQ/L (21-32); CHLORIDE LEVEL 110 MEQ/L (98-107); CREATININE FOR GFR 0.74 MG/DL (0.55-1.30); GLOMERULAR FILTRATION RATE > 60.0 (>51); GLUCOSE, FASTING 97 MG/DL (70-100); POTASSIUM SERUM 3.3 MEQ/L (3.5-5.1); SALICYLATE LEVEL < 1.7 MG/DL (5.0-30.0); SODIUM LEVEL 148 MEQ/L (136-145); TOTAL PROTEIN 7.4 GM/DL (6.4-8.2)
[2019-10-31] MEDS ORDERED: THIAMINE 100 MG TAB PO ONE (21:30)
[2019-10-31] MEDS ORDERED: IPRATROPIUM 0.5MG/ALBUTEROL 2.5MG INH SOL UD 3ML (DUONEB)(J7620) NEB ONE (21:30)
[2019-11-01 05:20] LABS: AMPHETAMINES LEVEL URINE NEGATIVE (NEGATIVE); BARBITURATES URINE NEGATIVE (NEGATIVE); BENZODIAZEPINES URINE NEGATIVE (NEGATIVE); CANNABINOIDS URINE NEGATIVE (NEGATIVE); COCAINE METABOLITE URINE NEGATIVE (NEGATIVE); METHADONE URINE NEGATIVE (NEGATIVE); OPIATES URINE NEGATIVE (NEGATIVE); PHENCYCLIDINE URINE NEGATIVE (NEGATIVE)
[2019-11-01] MEDS ORDERED: LORazepam 2 MG TAB PO PRN (09:15)
[2019-11-01] MEDS ORDERED: GI COCKTAIL 50ML BTL(HYOSCYAMINE/MAALOX/LIDOCAINE VISCOUS)(1:3:1) PO ONE (11:15)
[2019-11-01 13:35] VITALS: BP 142/67
[2019-11-01] MEDS ORDERED: THIAMINE 100 MG TAB PO SCH (21:00)
[2019-11-02] MEDS ORDERED: MULTIVITAMINS/MINERALS THERAP 1 TAB PO SCH (09:00)
[2019-11-02] MEDS ORDERED: FOLIC ACID 1 MG TAB PO SCH (09:00)
== END 2019-11-01 13:54 | disposition home or self-care (01) ==
LOC: M ED 19:26
DX: F10.120 Alcohol abuse with intoxication, uncomplicated (principal); B19.20 Unspecified viral hepatitis C without hepatic coma; K74.60 Unspecified cirrhosis of liver; D61.818 Other pancytopenia; M54.9 Dorsalgia, unspecified; F17.210 Nicotine dependence, cigarettes, uncomplicated; Z79.899 Other long term (current) drug therapy
CPT/HCPCS: 36415; 80048; 80076; 80307; 84443; 85027; 99284; G0480

== ENCOUNTER → 2019-11-15 | Outpatient (CLI) | payer MEDICARE, MEDICAID ==
--- NOTE | 2019-11-15 12:09 | REP ---
RIGHT UPPER QUADRANT ULTRASOUND: Real-time sonographic evaluation of the right upper quadrant performed. Gallbladder demonstrates no evidence of gallstones. There is gallbladder wall thickening up to 5 mm. No free fluid is seen. There is no intrahepatic or extrahepatic biliary dilatation, common bile duct measuring 5 mm. The liver demonstrates heterogeneous increased echotexture compatible with fibrofatty infiltration. There is a patent recanalized umbilical vein consistent with portal hypertension and cirrhosis. Multiple liver cysts are seen, the largest two are in the midline 1.6 x 1.0 x 1.7 cm and in the right lobe 1.6 x 1.5 x 2.0 cm. Visualized pancreas is grossly unremarkable. Right kidney demonstrates no hydronephrosis with normal size 10 cm in length. IMPRESSION: Gallbladder wall thickening without evidence of gallstones, free fluid or biliary dilatation. Fibrofatty infiltration of the liver with recanalized umbilical vein compatible with portal hypertension and cirrhosis. Multiple liver cysts. Electronically Signed by Shivam Moon MD 11/15/2019 05:41 P
== END ==
LOC: M RAD 08:07
PROVIDERS: ATTEND Family Medicine
DX: K70.30 Alcoholic cirrhosis of liver without ascites (principal)

== ENCOUNTER 2020-01-09 22:35 | Emergency (ER) | payer MEDICARE, MEDICAID ==
[~2020-01-09] VITALS: Ht 165.1 cm; Wt 68.2 kg
[~2020-01-09 22:35] MED LIST changes: +ONDA-83 PO; -ONDA4TAB5 PO; -ROPI0.5T PO; +ROPI0.5T3 PO
[2020-01-09 23:01] LABS: BASO # 0.1 10^3/uL (0.0-0.2); BASO % 0.8 % (0.0-1.0); EOS # 0.2 10^3/uL (0.0-0.5); EOS % 3.1 % (0.0-3.0); HEMATOCRIT 35.9 % (36.0-47.0); LYMPH # 3.6 10^3/uL (1.5-5.0); LYMPH % 55.9 % (24.0-44.0); MEAN CORPUSCULAR HEMOGLOBIN 32.5 pg (27.0-33.0); MEAN CORPUSCULAR HGB CONC 33.4 g/dl (32.0-36.5); MEAN CORPUSCULAR VOLUME 97.3 fl (80.0-96.0); MONO # 0.6 10^3/uL (0.0-0.8); MONO % 8.9 % (0.0-5.0); NEUTROPHILS % 30.8 % (36.0-66.0); PLATELET COUNT, AUTOMATED 108 10^3/uL (150-450); RED BLOOD COUNT 3.69 10^6/uL (4.00-5.40); WHITE BLOOD COUNT 6.4 10^3/uL (4.0-10.0)
[2020-01-09 23:32] LABS: ALBUMIN 3.7 GM/DL (3.2-5.2); ALT/SGPT 26 U/L (12-78); BILIRUBIN,DIRECT 0.9 MG/DL (0.0-0.2); BILIRUBIN,TOTAL 2.5 MG/DL (0.2-1.0); BLOOD UREA NITROGEN 11 MG/DL (7-18); CALCIUM LEVEL 8.6 MG/DL (8.5-10.1); CARBON DIOXIDE LEVEL 27 MEQ/L (21-32); CHLORIDE LEVEL 110 MEQ/L (98-107); CK-MB VALUE MASS 1.2 NG/ML (<3.6); CPK CREATINE PHOSPHOKINASE 127 U/L (26-192); CREATININE FOR GFR 0.71 MG/DL (0.55-1.30); GLOMERULAR FILTRATION RATE > 60.0 (>51); GLUCOSE, FASTING 118 MG/DL (70-100); MB/CK RELATIVE INDEX 0.94 (< OR =4); NT-PRO BNP 51 PG/ML (<125); POTASSIUM SERUM 3.3 MEQ/L (3.5-5.1); SODIUM LEVEL 145 MEQ/L (136-145); TOTAL PROTEIN 7.2 GM/DL (6.4-8.2); TROPONIN I < 0.02 NG/ML (< 0.10)
[2020-01-09 23:45] VITALS: BP 128/66
--- NOTE | 2020-01-10 07:13 | ECGEPIP ---
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
--- NOTE | 2020-01-10 08:00 | REP ---
Chest x-ray: Two views. History: Dyspnea and cough. Comparison chest x-ray: July 19, 2019. Findings: The lungs are symmetrically aerated and clear. Pleural angles are sharp. Heart size is normal. The patient is rotated somewhat to the left for the current frontal exposure. EKG monitoring electrodes overlie the chest. Pulmonary vasculature is not increased. No significant bony abnormality. Impression: No abnormality noted. Electronically Signed by Neil Hahn MD 01/10/2020 07:52 A
== END 2020-01-10 00:16 | disposition left against medical advice (07) ==
LOC: M ED 22:35 → EDBD 22:35 → M ED 01-10 00:16
DX: R06.02 Shortness of breath (principal); I45.89 Other specified conduction disorders; Z53.21 Procedure and treatment not carried out due to patient leaving prior to being seen by health care provider; R05 Cough; F31.9 Bipolar disorder, unspecified; R56.9 Unspecified convulsions; K21.9 Gastro-esophageal reflux disease without esophagitis; Z86.19 Personal history of other infectious and parasitic diseases; F12.10 Cannabis abuse, uncomplicated; K74.60 Unspecified cirrhosis of liver; Z79.899 Other long term (current) drug therapy

== ENCOUNTER 2020-04-13 20:02 | Emergency (ER) | payer MEDICARE, MEDICAID ==
[~2020-04-13] VITALS: Ht 165.1 cm; Wt 68.2 kg
[~2020-04-13 20:02] MED LIST changes: -LACT10SO29 PO; +LACT20EL PO
[2020-04-13 20:25] LABS: HEMATOCRIT 40.2 % (36.0-47.0); HEMOGLOBIN 13.4 g/dl (12.0-15.5); MEAN CORPUSCULAR HEMOGLOBIN 33.3 pg (27.0-33.0); MEAN CORPUSCULAR HGB CONC 33.3 g/dl (32.0-36.5); RED BLOOD COUNT 4.02 10^6/uL (4.00-5.40); WHITE BLOOD COUNT 5.3 10^3/uL (4.0-10.0)
[2020-04-13 20:28] VITALS: BP 150/70
[2020-04-13 20:28] LABS: PLATELET COUNT, AUTOMATED 84 10^3/uL (150-450)
[2020-04-13 20:57] LABS: AMPHETAMINES LEVEL URINE NEGATIVE (NEGATIVE); BARBITURATES URINE NEGATIVE (NEGATIVE); BENZODIAZEPINES URINE NEGATIVE (NEGATIVE); CANNABINOIDS URINE NEGATIVE (NEGATIVE); COCAINE METABOLITE URINE NEGATIVE (NEGATIVE); METHADONE URINE NEGATIVE (NEGATIVE); OPIATES URINE NEGATIVE (NEGATIVE); PHENCYCLIDINE URINE NEGATIVE (NEGATIVE)
[2020-04-13 21:42] LABS: ACETAMINOPHEN LEVEL < 2.0 UG/ML (10.0-30.0); ALBUMIN 3.6 GM/DL (3.2-5.2); ALT/SGPT 40 U/L (12-78); BILIRUBIN,DIRECT 1.1 MG/DL (0.0-0.2); BLOOD UREA NITROGEN 6 MG/DL (7-18); CALCIUM LEVEL 7.9 MG/DL (8.5-10.1); CARBON DIOXIDE LEVEL 28 MEQ/L (21-32); CHLORIDE LEVEL 111 MEQ/L (98-107); CREATININE FOR GFR 0.54 MG/DL (0.55-1.30); ETHYL ALCOHOL (ETHANOL) 0.392 % (0.000-0.010); GLOMERULAR FILTRATION RATE > 60.0 (>51); GLUCOSE, FASTING 110 MG/DL (70-100); POTASSIUM SERUM 3.2 MEQ/L (3.5-5.1); SALICYLATE LEVEL < 1.7 MG/DL (5.0-30.0); SODIUM LEVEL 148 MEQ/L (136-145); TOTAL PROTEIN 6.8 GM/DL (6.4-8.2)
== END 2020-04-14 01:21 | disposition home or self-care (01) ==
LOC: M ED 20:02
DX: F10.221 Alcohol dependence with intoxication delirium (principal)
CPT/HCPCS: 80048; 80076; 80307; 84443; 85027; 85049; 85055; 99284; G0480

== ENCOUNTER 2020-04-15 23:53 | Emergency (ER) | payer MEDICARE, MEDICAID ==
[~2020-04-15 23:53] MED LIST changes: +PANT40TA29 PO; -PANT40TA3 PO
[2020-04-16 00:22] LABS: ABG BASE EXCESS 3.9 (-2.0-2.0); ABG HCO3 26.9 MEQ/L (22.0-26.0); ABG O2 SATURATION 96.7 % (95.0-99.0); ABG PARTIAL PRESSURE CO2 35.4 mmHg (35.0-45.0); ABG PARTIAL PRESSURE O2 91.3 mmHg (75.0-100.0); ABG STANDARD HCO3 27.9 MEQ/L (22.0-26.0); ABG pH (ARTERIAL) 7.499 UNITS (7.350-7.450)
[2020-04-16 00:48] LABS: BASO # 0.1 10^3/uL (0.0-0.2); EOS # 0.1 10^3/uL (0.0-0.5); EOS % 2.5 % (0.0-3.0); HEMATOCRIT 37.3 % (36.0-47.0); HEMOGLOBIN 12.6 g/dl (12.0-15.5); LYMPH # 2.7 10^3/uL (1.5-5.0); LYMPH % 52.7 % (24.0-44.0); MEAN CORPUSCULAR HEMOGLOBIN 32.8 pg (27.0-33.0); MEAN CORPUSCULAR HGB CONC 33.8 g/dl (32.0-36.5); MEAN CORPUSCULAR VOLUME 97.1 fl (80.0-96.0); MONO # 0.6 10^3/uL (0.0-0.8); MONO % 10.9 % (0.0-5.0); NEUTROPHILS # 1.7 10^3/uL (1.5-8.5); NEUTROPHILS % 32.5 % (36.0-66.0); RED BLOOD COUNT 3.84 10^6/uL (4.00-5.40); WHITE BLOOD COUNT 5.1 10^3/uL (4.0-10.0)
[2020-04-16 01:08] LABS: PLATELET COUNT, AUTOMATED 83 10^3/uL (150-450)
[2020-04-16 01:28] LABS: ALBUMIN 3.9 GM/DL (3.2-5.2); ALT/SGPT 33 U/L (12-78); BILIRUBIN,DIRECT 1.4 MG/DL (0.0-0.2); BILIRUBIN,TOTAL 4.5 MG/DL (0.2-1.0); BLOOD UREA NITROGEN 4 MG/DL (7-18); CALCIUM LEVEL 8.8 MG/DL (8.5-10.1); CARBON DIOXIDE LEVEL 28 MEQ/L (21-32); CHLORIDE LEVEL 106 MEQ/L (98-107); CK-MB VALUE MASS 1.8 NG/ML (<3.6); CPK CREATINE PHOSPHOKINASE 259 U/L (26-192); CREATININE FOR GFR 0.56 MG/DL (0.55-1.30); ETHYL ALCOHOL (ETHANOL) 0.375 % (0.000-0.010); FREE T4 1.06 NG/DL (0.76-1.46); GLOMERULAR FILTRATION RATE > 60.0 (>51); GLUCOSE, FASTING 108 MG/DL (70-100); LIPASE 87 U/L (73-393); MB/CK RELATIVE INDEX 0.69 (< OR =4); NT-PRO BNP 34 PG/ML (<125); POTASSIUM SERUM 3.1 MEQ/L (3.5-5.1); SODIUM LEVEL 144 MEQ/L (136-145); THYROID STIMULATING HORMONE 0.959 uIU/ML (0.358-3.740); TOTAL PROTEIN 6.9 GM/DL (6.4-8.2); TROPONIN I < 0.02 NG/ML (< 0.10)
[2020-04-16 01:46] LABS: INR 1.53; PROTHROMBIN TIME 18.1 SECONDS (11.8-14.0)
[2020-04-16 01:47] LABS: PARTIAL THROMBOPLASTIN TIME 41.2 SECONDS (25.0-38.4)
[2020-04-16] MEDS ORDERED: POTASSIUM CHLORIDE 10 MEQ SR TABLET PO ONE (03:00)
[2020-04-16 08:15] VITALS: BP 116/64
--- NOTE | 2020-04-16 09:49 | REP ---
CHEST, SINGLE VIEW: There is no evidence of acute infiltrate. No pleural effusion is seen. The heart is normal in size. The mediastinal silhouette is unremarkable. The visualized osseous structures are intact. IMPRESSION: No acute pulmonary disease. Electronically Signed by Shivam Moon MD 04/17/2020 10:27 A
--- NOTE | 2020-04-17 21:16 | ECGEPIP ---
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
== END 2020-04-16 09:00 | disposition home or self-care (01) ==
LOC: EDBD 23:53 → M ED 23:53
DX: F10.120 Alcohol abuse with intoxication, uncomplicated (principal); K74.60 Unspecified cirrhosis of liver; B19.20 Unspecified viral hepatitis C without hepatic coma; Z79.899 Other long term (current) drug therapy
CPT/HCPCS: 36600; 71045; 80048; 80076; 82550; 82553; 82803; 83690; 83880; 84439; 84443; 84484; 85025; 85049; 85055; 85610; 85730; 87486; 87581; 87633; 87798; 93005; 93041; 99285; G0480

== ENCOUNTER 2020-06-15 03:16 | Emergency (ER) | payer MEDICARE, MEDICAID | END 2020-06-15 03:35 | disposition home or self-care (01) | LOC: M ED 03:16 | DX: F10.229 Alcohol dependence with intoxication, unspecified (principal) ==

== ENCOUNTER 2021-02-05 13:03 | Emergency (ER) | payer MEDICARE, MEDICAID ==
[~2021-02-05] VITALS: Ht 167.6 cm; Wt 77.3 kg
[2021-02-05] MEDS ORDERED: LORazepam 2 MG TAB PO PRN (13:25)
[2021-02-05] MEDS ORDERED: MULTIVITAMIN -ADULT INJECTION 10 ML, THIAMINE INJection 100 MG, FOLIC ACID 1 MG in NS 1... IV ONE (13:25)
[2021-02-05] MEDS ORDERED: ONDANSETRON 4MG/2ML VIAL IV ONE (13:25)
[2021-02-05] MEDS ORDERED: MORPHINE 4 MG/ML 1ML VIAL/SYRINGE (J2270) IV ONE ×2 (13:25→13:55)
[2021-02-05] MEDS ORDERED: NS 1,000 ML IV ONE (13:25)
[2021-02-05] MEDS ORDERED: PANTOPRAZOLE 40MG VIAL (C9113 PER 1) IV ONE (13:25)
[2021-02-05 13:51] LABS: BASO # 0.1 10^3/uL (0.0-0.2); BASO % 1.1 % (0.0-1.0); EOS # 0.2 10^3/uL (0.0-0.5); EOS % 4.9 % (0.0-3.0); HEMATOCRIT 42.8 % (36.0-47.0); HEMOGLOBIN 14.5 g/dl (12.0-15.5); LYMPH # 2.9 10^3/uL (1.5-5.0); LYMPH % 61.7 % (24.0-44.0); MEAN CORPUSCULAR HEMOGLOBIN 33.8 pg (27.0-33.0); MEAN CORPUSCULAR HGB CONC 33.9 g/dl (32.0-36.5); MEAN CORPUSCULAR VOLUME 99.8 fl (80.0-96.0); MONO # 0.5 10^3/uL (0.0-0.8); NEUTROPHILS % 22.1 % (36.0-66.0); PLATELET COUNT, AUTOMATED 106 10^3/uL (150-450); RED BLOOD COUNT 4.29 10^6/uL (4.00-5.40); WHITE BLOOD COUNT 4.7 10^3/uL (4.0-10.0)
[2021-02-05 13:59] LABS: INR 1.21; PROTHROMBIN TIME 15.6 SECONDS (12.5-14.3)
[2021-02-05 14:00] LABS: PARTIAL THROMBOPLASTIN TIME 35.5 SECONDS (24.2-38.5)
[2021-02-05] MEDS ORDERED: ISOVUE-370 76% 100ML VIAL As Ordered ONE (14:13)
[2021-02-05 14:26] LABS: ALBUMIN 3.9 GM/DL (3.2-5.2); ALT/SGPT 24 U/L (12-78); AMYLASE 43 U/L (25-115); BILIRUBIN,DIRECT 0.8 MG/DL (0.0-0.2); BILIRUBIN,TOTAL 2.6 MG/DL (0.2-1.0); CK-MB VALUE MASS 1.3 NG/ML (<3.6); CPK CREATINE PHOSPHOKINASE 160 U/L (26-192); LIPASE 89 U/L (73-393); MB/CK RELATIVE INDEX 0.81 (< OR =4); TROPONIN I < 0.02 NG/ML (< 0.10)
--- NOTE | 2021-02-05 15:05 | REP ---
INDICATION: severe LUQ pain COMPARISON: 07/01/2019. TECHNIQUE: CT Scan of the abdomen and pelvis was performed with intravenous administration of 100 cc of Isovue 370, without oral contrast. Sagittal and coronal reconstruction images are performed. FINDINGS: Lung bases: Unremarkable. Liver: There are several cysts in the liver, the largest is in the right lobe and measures 2.7 cm in maximum diameter. The liver is mildly enlarged, the length is about 19 cm. There is recanalization of the umbilical vein. Multiple collateral vessels extend inferiorly from the perihepatic region throughout the right paracolic gutter. There are multiple varicosities surrounding the spleen. Gallbladder: A subcentimeter gallstone is seen in the gallbladder.. Spleen: Spleen is upper limits of normal in size does slightly enlarged with a length of 12.6 cm.. Adrenals: Normal. Pancreas: Normal. Kidneys: There is no hydronephrosis bilaterally. There is a probable subcentimeter cyst in the lower pole left kidney medially. Small and large bowel: Unremarkable. Free fluid: None. Abdominal aorta: No aneurysm or dissection. Adenopathy: There is a mildly enlarged portal lymph node which measures 2.7 x 1.5 cm. Appendix: Not inflamed. Osseous structures: There is an old stable compression deformity of T12. Pelvis: No mass. IMPRESSION: No acute findings identified. Mild hepatomegaly with several cysts again noted in the liver. Multiple perihepatic collateral vessels extend inferiorly throughout the right paracolic gutter. There is a recanalized umbilical vein. There are multiple varices surrounding the spleen. The spleen is slightly enlarged. Findings may represent cirrhosis and portal hypertension. The no intrinsic abnormality of the spleen. No free fluid. Subcentimeter gallstone in the gallbladder with no evidence for gallbladder wall edema with an no evidence for biliary dilatation. There is mild portal adenopathy. No hydronephrosis. <Electronically signed by Shivam Moon > 02/05/21 [id number]
[2021-02-05] MEDS ORDERED: GI COCKTAIL 50ML BTL(HYOSCYAMINE/MAALOX/LIDOCAINE VISCOUS)(1:3:1) PO ONE (15:25)
[2021-02-05 16:00] VITALS: BP 102/58
[2021-02-05 16:54] LABS: AMPHETAMINES LEVEL URINE NEGATIVE (NEGATIVE); BARBITURATES URINE NEGATIVE (NEGATIVE); BENZODIAZEPINES URINE NEGATIVE (NEGATIVE); CANNABINOIDS URINE NEGATIVE (NEGATIVE); COCAINE METABOLITE URINE NEGATIVE (NEGATIVE); METHADONE URINE NEGATIVE (NEGATIVE); OPIATES URINE POSITIVE (NEGATIVE); PHENCYCLIDINE URINE NEGATIVE (NEGATIVE)
--- NOTE | 2021-02-06 06:34 | ECGEPIP ---
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
== END 2021-02-05 18:41 | disposition home or self-care (01) ==
LOC: M ED 13:03
DX: K29.20 Alcoholic gastritis without bleeding (principal); F10.229 Alcohol dependence with intoxication, unspecified; K70.30 Alcoholic cirrhosis of liver without ascites; I45.10 Unspecified right bundle-branch block; I10 Essential (primary) hypertension; E78.5 Hyperlipidemia, unspecified; K21.9 Gastro-esophageal reflux disease without esophagitis; Z87.19 Personal history of other diseases of the digestive system; B19.20 Unspecified viral hepatitis C without hepatic coma; Z79.899 Other long term (current) drug therapy
CPT/HCPCS: 74177; 80047; 80076; 80307; 82077; 82150; 82550; 82553; 83605; 83690; 84484; 85025; 85610; 85730; 93005; 93041; 96361; 96374; 96375; 96376; 99285; C9113; J2270; J2405; J3411; Q9967

== ENCOUNTER 2021-02-07 07:11 | Emergency (ER) | payer MEDICARE, MEDICAID ==
[~2021-02-07] VITALS: Ht 157.5 cm; Wt 81.8 kg
[2021-02-07] MEDS ORDERED: methylPREDNISolone 125MG 2ML VIAL IV ONE (07:35)
[2021-02-07] MEDS: COMBIVENT RESPIMAT 100-20MCG INHALER 4GM INH SCH ×3 (07:43→08:28)
--- NOTE | 2021-02-07 07:54 | REP ---
INDICATION: sob. COMPARISON: Portable chest dated 04/16/2020. TECHNIQUE: Portable AP chest with the patient upright. FINDINGS: The lung gotti are clear. Cardiac size is normal. The kervin, mediastinum and skeletal structures are unremarkable. IMPRESSION: Essentially negative portable chest <Electronically signed by Shivam Serrano > 02/07/21 [id number]
[2021-02-07 08:03] LABS: BASO % 0.8 % (0.0-1.0); EOS # 0.2 10^3/uL (0.0-0.5); EOS % 5.2 % (0.0-3.0); HEMATOCRIT 36.9 % (36.0-47.0); HEMOGLOBIN 12.6 g/dl (12.0-15.5); LYMPH # 2.1 10^3/uL (1.5-5.0); LYMPH % 54.3 % (24.0-44.0); MEAN CORPUSCULAR HEMOGLOBIN 34.2 pg (27.0-33.0); MEAN CORPUSCULAR HGB CONC 34.1 g/dl (32.0-36.5); MEAN CORPUSCULAR VOLUME 100.3 fl (80.0-96.0); MONO # 0.4 10^3/uL (0.0-0.8); MONO % 9.1 % (2.0-8.0); NEUTROPHILS # 1.2 10^3/uL (1.5-8.5); NEUTROPHILS % 30.3 % (36.0-66.0); RED BLOOD COUNT 3.68 10^6/uL (4.00-5.40); WHITE BLOOD COUNT 3.9 10^3/uL (4.0-10.0)
[2021-02-07 08:37] LABS: PLATELET COUNT, AUTOMATED 78 10^3/uL (150-450)
[2021-02-07 08:43] LABS: AMPHETAMINES LEVEL URINE NEGATIVE (NEGATIVE); BARBITURATES URINE NEGATIVE (NEGATIVE); BENZODIAZEPINES URINE NEGATIVE (NEGATIVE); CANNABINOIDS URINE NEGATIVE (NEGATIVE); COCAINE METABOLITE URINE NEGATIVE (NEGATIVE); METHADONE URINE NEGATIVE (NEGATIVE); OPIATES URINE POSITIVE (NEGATIVE); PHENCYCLIDINE URINE NEGATIVE (NEGATIVE)
[2021-02-07 08:45] LABS: ACETAMINOPHEN LEVEL < 2.0 UG/ML (10.0-30.0); ALBUMIN 3.8 GM/DL (3.2-5.2); ALT/SGPT 24 U/L (12-78); BILIRUBIN,DIRECT 0.9 MG/DL (0.0-0.2); BILIRUBIN,TOTAL 2.5 MG/DL (0.2-1.0); BLOOD UREA NITROGEN 6 MG/DL (7-18); CALCIUM LEVEL 7.8 MG/DL (8.5-10.1); CARBON DIOXIDE LEVEL 30 MEQ/L (21-32); CHLORIDE LEVEL 111 MEQ/L (98-107); CK-MB VALUE MASS 1.7 NG/ML (<3.6); CPK CREATINE PHOSPHOKINASE 197 U/L (26-192); ETHYL ALCOHOL (ETHANOL) 0.337 % (0.000-0.010); GLOMERULAR FILTRATION RATE > 60.0 (>51); GLUCOSE, FASTING 93 MG/DL (70-100); LIPASE 105 U/L (73-393); MB/CK RELATIVE INDEX 0.86 (< OR =4); NT-PRO BNP 181 PG/ML (<125); POTASSIUM SERUM 3.5 MEQ/L (3.5-5.1); SALICYLATE LEVEL < 1.7 MG/DL (5.0-30.0); SODIUM LEVEL 149 MEQ/L (136-145); TOTAL PROTEIN 6.4 GM/DL (6.4-8.2); TROPONIN I < 0.02 NG/ML (< 0.10)
[2021-02-07] MEDS ORDERED: NS 500 ML IV ONE (09:10)
[2021-02-07] MEDS ORDERED: ISOVUE-370 76% 100ML VIAL As Ordered ONE (10:09)
--- NOTE | 2021-02-07 11:33 | REP ---
INDICATION: sob. COMPARISON: Chest CT with IV contrast dated 12/16/2015. TECHNIQUE: Chest CT with IV contrast, CT angiography. FINDINGS: There are no emboli in the pulmonary trunk or central pulmonary arteries. There are no emboli in the pulmonary artery lobar segment branches. There are bilateral lower lobe infiltrates. No pleural effusions. No lung masses or nodules are identified. There is no mediastinal or hilar lymph node enlargement. No axillary lymphadenopathy. The thoracic aorta is unremarkable. Cardiac size is normal. No pericardial effusion. The visualized upper abdomen is unremarkable except for hepatic hypodensities, not significantly changed, hemangiomas versus cysts. The adrenals are unremarkable. IMPRESSION: There are no pulmonary emboli. There are bilateral lower lobe infiltrates. No pleural effusions. Chronic stable hepatic hypodensities, cysts versus hemangiomas. <Electronically signed by Shivam Serrano > 02/07/21 [id number]
[2021-02-07] MEDS ORDERED: DOXY100C37 PO (13:39)
[2021-02-07] MEDS ORDERED: ATRO0.063 INH (13:39)
[2021-02-07] MEDS ORDERED: DOXYCYCLINE HYCLATE 100MG TABLET PO ONE (13:40)
[2021-02-07] MEDS ORDERED: PRED20TA PO (13:40)
[2021-02-07 13:45] VITALS: BP 130/67
--- NOTE | 2021-02-07 19:08 | ECGEPIP ---
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
== END 2021-02-07 13:55 | disposition home or self-care (01) ==
LOC: EDBD 07:11 → M ED 07:11
DX: F10.120 Alcohol abuse with intoxication, uncomplicated (principal); J18.9 Pneumonia, unspecified organism; J44.1 Chronic obstructive pulmonary disease with (acute) exacerbation; B19.20 Unspecified viral hepatitis C without hepatic coma; K76.9 Liver disease, unspecified; I10 Essential (primary) hypertension; D64.9 Anemia, unspecified; F31.9 Bipolar disorder, unspecified; F17.200 Nicotine dependence, unspecified, uncomplicated; Z79.899 Other long term (current) drug therapy
CPT/HCPCS: 36600; 71045; 71275; 80053; 80143; 80307; 82077; 82248; 82550; 82553; 82803; 83605; 83690; 83880; 84443; 84484; 85025; 85049; 85055; 87040; 87798; 93005; 96361; 96374; 99285; J2930; Q9967

== ENCOUNTER 2021-02-25 14:16 | Emergency (ER) | payer MEDICARE, MEDICAID ==
[~2021-02-25 14:16] MED LIST changes: +ATRO0.063 INH; +DOXY100C37 PO
[2021-02-25 14:51] LABS: BASO # 0.1 10^3/uL (0.0-0.2); BASO % 1.2 % (0.0-1.0); EOS # 0.1 10^3/uL (0.0-0.5); EOS % 2.1 % (0.0-3.0); HEMATOCRIT 42.1 % (36.0-47.0); HEMOGLOBIN 14.2 g/dl (12.0-15.5); LYMPH # 2.8 10^3/uL (1.5-5.0); LYMPH % 48.2 % (24.0-44.0); MEAN CORPUSCULAR HEMOGLOBIN 33.9 pg (27.0-33.0); MEAN CORPUSCULAR HGB CONC 33.7 g/dl (32.0-36.5); MEAN CORPUSCULAR VOLUME 100.5 fl (80.0-96.0); MONO # 0.5 10^3/uL (0.0-0.8); NEUTROPHILS # 2.3 10^3/uL (1.5-8.5); NEUTROPHILS % 39.3 % (36.0-66.0); PLATELET COUNT, AUTOMATED 163 10^3/uL (150-450); RED BLOOD COUNT 4.19 10^6/uL (4.00-5.40); WHITE BLOOD COUNT 5.8 10^3/uL (4.0-10.0)
[2021-02-25] MEDS ORDERED: THIAMINE 200MG/2ML VIAL (J3411 PER 100MG) IM ONE (14:55)
[2021-02-25] MEDS ORDERED: NS 1,000 ML IV SCH (15:00)
[2021-02-25 15:47] LABS: ACETAMINOPHEN LEVEL < 2.0 UG/ML (10.0-30.0); ALBUMIN 3.9 GM/DL (3.2-5.2); ALT/SGPT 58 U/L (12-78); BILIRUBIN,DIRECT 0.7 MG/DL (0.0-0.2); BILIRUBIN,TOTAL 1.9 MG/DL (0.2-1.0); BLOOD UREA NITROGEN 11 MG/DL (7-18); CALCIUM LEVEL 8.4 MG/DL (8.5-10.1); CARBON DIOXIDE LEVEL 26 MEQ/L (21-32); CHLORIDE LEVEL 112 MEQ/L (98-107); CREATININE FOR GFR 0.57 MG/DL (0.55-1.30); ETHYL ALCOHOL (ETHANOL) 0.437 % (0.000-0.010); GLOMERULAR FILTRATION RATE > 60.0 (>51); GLUCOSE, FASTING 91 MG/DL (70-100); POTASSIUM SERUM 3.8 MEQ/L (3.5-5.1); SALICYLATE LEVEL < 1.7 MG/DL (5.0-30.0); SODIUM LEVEL 149 MEQ/L (136-145); TOTAL PROTEIN 6.9 GM/DL (6.4-8.2)
--- NOTE | 2021-02-25 16:45 | REP ---
INDICATION: a;tered. COMPARISON: None. TECHNIQUE: Axial CT images with multiplanar reformations. FINDINGS: No acute bleed or acute large vessel territorial infarct. Ventricles, cisterns and sulci are within normal limits. No mass effect or midline shift. No abnormal fluid collections. Paranasal sinuses and mastoid air cells are clear. IMPRESSION: No acute findings. <Electronically signed by Jeff Palomares > 02/25/21 [id number]
[2021-02-25 19:15] VITALS: BP 129/56
== END 2021-02-25 19:40 | disposition home or self-care (01) ==
LOC: M ED 14:16
DX: F10.129 Alcohol abuse with intoxication, unspecified (principal); K74.69 Other cirrhosis of liver; B19.20 Unspecified viral hepatitis C without hepatic coma; F31.9 Bipolar disorder, unspecified; F40.00 Agoraphobia, unspecified; D64.9 Anemia, unspecified; Z79.899 Other long term (current) drug therapy; F17.210 Nicotine dependence, cigarettes, uncomplicated
CPT/HCPCS: 36415; 70450; 80048; 80076; 80143; 82077; 85025; 96360; 96361; 96372; 99284; J3411

== ENCOUNTER 2021-02-26 04:02 | Emergency (ER) | payer MEDICARE, MEDICAID ==
--- NOTE | 2021-02-26 04:30 | REPVR ---
PROCEDURE INFORMATION: Exam: XR Chest Exam date and time: 02/26/2021 4:06 AM Age: 50 years old Clinical indication: Other: Chest pain TECHNIQUE: Imaging protocol: XR of the chest. Views: 1 view. COMPARISON: 1. DE Chest, 1 view 02/07/2021 7:[address] ANGIO CHEST 02/07/2021 10:53:13 AM FINDINGS: Lungs: Lung volumes are more shallow than on the prior exam. There is crowding of markings in the lung bases and a suggestion of worsening poorly defined, patchy opacities in the bilateral lung bases and left perihilar region. Pleural spaces: No pleural effusions or pneumothorax identified. Heart/Mediastinum: The heart is enlarged. Bones/joints: Unremarkable. IMPRESSION: Lower lung volumes than previously. Apparent worsening of patchy opacities in the bilateral lung bases and left perihilar region, although some of this may be accentuated by lower lung volumes. Electronically signed by: Lyn Sandra On 02/26/2021 04:29:58 AM
[2021-02-26] MEDS ORDERED: SUCRALFATE SUSP 1GM/10ML UD PO ONE (05:20)
[2021-02-26 05:45] LABS: BASO # 0.1 10^3/uL (0.0-0.2); BASO % 1.2 % (0.0-1.0); EOS # 0.1 10^3/uL (0.0-0.5); EOS % 2.4 % (0.0-3.0); HEMATOCRIT 40.1 % (36.0-47.0); HEMOGLOBIN 13.8 g/dl (12.0-15.5); LYMPH # 2.8 10^3/uL (1.5-5.0); LYMPH % 56.9 % (24.0-44.0); MEAN CORPUSCULAR HEMOGLOBIN 34.4 pg (27.0-33.0); MEAN CORPUSCULAR HGB CONC 34.4 g/dl (32.0-36.5); MONO # 0.3 10^3/uL (0.0-0.8); MONO % 6.7 % (2.0-8.0); NEUTROPHILS # 1.6 10^3/uL (1.5-8.5); NEUTROPHILS % 32.6 % (36.0-66.0); PLATELET COUNT, AUTOMATED 152 10^3/uL (150-450); RED BLOOD COUNT 4.01 10^6/uL (4.00-5.40)
[2021-02-26 06:08] LABS: INR 1.21; PROTHROMBIN TIME 15.6 SECONDS (12.5-14.3)
[2021-02-26] MEDS ORDERED: GI COCKTAIL 50ML BTL(HYOSCYAMINE/MAALOX/LIDOCAINE VISCOUS)(1:3:1) PO ONE (06:10)
--- NOTE | 2021-02-26 06:11 | REPVR ---
PROCEDURE INFORMATION: Exam: CT Cervical Spine Without Contrast Exam date and time: 02/26/2021 5:17 AM Age: 50 years old Clinical indication: Neck pain; Additional info: Fall TECHNIQUE: Imaging protocol: Computed tomography images of the cervical spine without contrast. Radiation optimization: All CT scans at this facility use at least one of these dose optimization techniques: automated exposure control; mA and/or kV adjustment per patient size (includes targeted exams where dose is matched to clinical indication); or iterative reconstruction. COMPARISON: No relevant prior studies available. FINDINGS: Limitations: The initial series included only through the C6 vertebrae. Additional axial images were obtained through the lower cervical spine, but are not included on the coronal or sagittal reconstruction images. Bones/joints: There is straightening of the cervical lordosis through C6 without subluxations. There is no evidence of acute fracture. There is uncovertebral ridging on the right side at C5-C6 and C3-C4. Discs/Spinal canal/Neural foramina: No significant spinal canal stenosis is seen. Disc spaces are maintained. There is right-sided neural foraminal narrowing at C5-C6. No significant spinal canal stenosis is seen. Prevertebral Space: The prevertebral soft tissues appear normal. Lungs: The visualized lungs are grossly clear. Soft tissues: Unremarkable. IMPRESSION: 1. Straightening of the cervical lordosis without subluxations through C6. 2. No fractures identified. Electronically signed by: Lyn Sandra On 02/26/2021 06:10:40 AM
--- NOTE | 2021-02-26 06:24 | REPVR ---
PROCEDURE INFORMATION: Exam: CT Head Without Contrast Exam date and time: 02/26/2021 5:17 AM Age: 50 years old Clinical indication: Injury or trauma; Fall; Concussion/head injury TECHNIQUE: Imaging protocol: Computed tomography of the head without contrast. Radiation optimization: All CT scans at this facility use at least one of these dose optimization techniques: automated exposure control; mA and/or kV adjustment per patient size (includes targeted exams where dose is matched to clinical indication); or iterative reconstruction. COMPARISON: CT Head without contrast 02/25/2021 4:30 PM FINDINGS: Limitations: Images were repeated for motion. There is a small amount of persistent motion artifact on the repeated images. Brain: The cortical/white matter interfaces are preserved throughout the brain. There is no evidence of intracranial hemorrhage. Cerebral ventricles: The ventricular system is normal in size and configuration. Bones/joints: No acute fractures of the skull are identified. Paranasal sinuses: The visualized paranasal sinuses are clear. Mastoid air cells: The mastoid air cells are clear. Soft tissues: The soft tissues appear unremarkable. IMPRESSION: Exam slightly limited by persistent motion artifact. No evidence of acute intracranial injury. Electronically signed by: Lyn Sandra On 02/26/2021 06:24:18 AM
[2021-02-26] MEDS ORDERED: ISOVUE-370 76% 100ML VIAL As Ordered ONE (06:57)
[2021-02-26 07:00] VITALS: BP 127/64
[2021-02-26 07:07] LABS: ALBUMIN 3.7 GM/DL (3.2-5.2); ALT/SGPT 53 U/L (12-78); BILIRUBIN,DIRECT 0.6 MG/DL (0.0-0.2); BLOOD UREA NITROGEN 9 MG/DL (7-18); CARBON DIOXIDE LEVEL 27 MEQ/L (21-32); CHLORIDE LEVEL 113 MEQ/L (98-107); CK-MB VALUE MASS 1.3 NG/ML (<3.6); CPK CREATINE PHOSPHOKINASE 1186 U/L (26-192); CREATININE FOR GFR 0.49 MG/DL (0.55-1.30); GLOMERULAR FILTRATION RATE > 60.0 (>51); GLUCOSE, FASTING 89 MG/DL (70-100); LIPASE 87 U/L (73-393); MB/CK RELATIVE INDEX 0.11 (< OR =4); SODIUM LEVEL 147 MEQ/L (136-145); TOTAL PROTEIN 6.8 GM/DL (6.4-8.2); TROPONIN I < 0.02 NG/ML (< 0.10)
--- NOTE | 2021-02-26 09:21 | REP ---
INDICATION: epigastric pain/chest pain COMPARISON: None. TECHNIQUE: Axial contrast enhanced images from the thoracic inlet to the upper abdomen using pulmonary embolus technique with multiplanar re-formations. 75 ml Isovue 370 intravenous contrast material administered without complication. This CT examination was performed using the following dose reduction techniques: Automated exposure control, adjustment of mA and/or kv according to the patient's size, and use of iterative reconstruction technique. FINDINGS: Satisfactory enhancement of the pulmonary vasculature is achieved and no filling defects are identified to suggest pulmonary embolus. Further evaluation of the mediastinum demonstrates normal thoracic aorta, heart and pericardium. The bilateral lung gotti are well aerated and clear without consolidation, pleural effusion or pneumothorax. Previously noted bibasilar infiltrates/atelectasis have resolved. Tracheobronchial tree is patent. No nodule or mass lesion is identified. No adenopathy noted. Surrounding musculoskeletal structures intact IMPRESSION: No evidence for pulmonary embolus. No acute mediastinal or pleural parenchymal process. Previous lower lobe opacities have resolved. <Electronically signed by Binu Man > 02/26/21 0900
--- NOTE | 2021-02-26 09:25 | REP ---
INDICATION: epigastric pain/chest pain. COMPARISON: 02/05/2021, 07/01/2019 TECHNIQUE: Axial contrast-enhanced images from the lung bases to the pubic symphysis using 100 cc Isovue 370 intravenous contrast material. Coronal and sagittal reformations obtained. This CT examination was performed using the following dose reduction techniques: Automated exposure control, adjustment of mA and/or kv according to the patient's size, and the use of iterative reconstruction technique. FINDINGS: Liver demonstrates a coarsened parenchymal appearance and there is evidence for patent umbilical vein and multiple portosystemic collateral vessels in the upper abdomen consistent with cirrhosis. Few scattered hypodensities measuring up to 2.7 cm remains stable and consistent with benign cysts. The spleen, pancreas, bilateral adrenal glands and kidneys are normal. Cholelithiasis noted without acute cholecystitis. The enteric system including stomach, small, and large bowel appears normal. No evidence for obstruction or acute inflammatory process. Few scattered colonic and sigmoid diverticula noted without acute diverticulitis. Pelvis demonstrates normal bladder and age-appropriate uterus/adnexa. No ascites. No free air. No intraperitoneal or retroperitoneal adenopathy. Abdominal aorta and vasculature appear normal. Musculoskeletal structures are intact and without acute osseous abnormality. IMPRESSION: 1. Cirrhosis. 2. Cholelithiasis without acute cholecystitis. 3. No acute abdominopelvic pathology appreciated. No ascites. No free air. No adenopathy. <Electronically signed by Binu Man > 02/26/21 0922
--- NOTE | 2021-02-26 18:14 | ECGEPIP ---
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
--- NOTE | 2021-02-28 10:05 | ED PDOC ---
Post-Departure Follow-Up radiology report faxed to Myla Hart MD Feb 28, 2021 10:05
== END 2021-02-26 09:10 | disposition left against medical advice (07) ==
LOC: M ED 04:02
DX: F10.10 Alcohol abuse, uncomplicated (principal); I10 Essential (primary) hypertension; E78.5 Hyperlipidemia, unspecified; B19.20 Unspecified viral hepatitis C without hepatic coma; K21.9 Gastro-esophageal reflux disease without esophagitis; Z79.899 Other long term (current) drug therapy
CPT/HCPCS: 36415; 70450; 71045; 71275; 72125; 74177; 80048; 80076; 82077; 82550; 82553; 83690; 84484; 85025; 85610; 93005; 93041; 94760; 99285; Q9967

== ENCOUNTER 2021-04-16 06:19 | Emergency (ER) | payer OTHER, MEDICAID ==
[~2021-04-16] VITALS: Ht 165.1 cm; Wt 68.2 kg
[2021-04-16] MEDS ORDERED: ACETAMINOPHEN TAB 650MG DOSE (2X325MG) PO ONE (06:35)
[2021-04-16 06:56] LABS: BASO % 0.6 % (0.0-1.0); EOS # 0.2 10^3/uL (0.0-0.5); EOS % 3.6 % (0.0-3.0); HEMATOCRIT 42.1 % (36.0-47.0); HEMOGLOBIN 14.4 g/dl (12.0-15.5); LYMPH # 2.5 10^3/uL (1.5-5.0); LYMPH % 40.2 % (24.0-44.0); MEAN CORPUSCULAR HEMOGLOBIN 33.6 pg (27.0-33.0); MEAN CORPUSCULAR HGB CONC 34.2 g/dl (32.0-36.5); MEAN CORPUSCULAR VOLUME 98.4 fl (80.0-96.0); MONO # 0.4 10^3/uL (0.0-0.8); RED BLOOD COUNT 4.28 10^6/uL (4.00-5.40); WHITE BLOOD COUNT 6.2 10^3/uL (4.0-10.0)
[2021-04-16 07:17] LABS: PLATELET COUNT, AUTOMATED 93 10^3/uL (150-450)
[2021-04-16 07:28] LABS: ALBUMIN 4.1 GM/DL (3.2-5.2); BILIRUBIN,DIRECT 1.1 MG/DL (0.0-0.2); BILIRUBIN,TOTAL 3.3 MG/DL (0.2-1.0); ETHYL ALCOHOL (ETHANOL) 0.463 % (0.000-0.010); TOTAL PROTEIN 6.9 GM/DL (6.4-8.2)
[2021-04-16] MEDS ORDERED: FOLIC ACID 1 MG TAB PO SCH (09:00)
[2021-04-16] MEDS ORDERED: MULTIVITAMINS/MINERALS THERAP 1 TAB PO SCH (09:00)
[2021-04-16] MEDS ORDERED: THIAMINE 100 MG TAB PO SCH (09:00)
[2021-04-16] MEDS ORDERED: LORazepam 2 MG TAB PO PRN (10:30)
[2021-04-16 13:30] VITALS: BP 117/62
== END 2021-04-16 14:07 | disposition home or self-care (01) ==
LOC: M ED 06:19
DX: F10.120 Alcohol abuse with intoxication, uncomplicated (principal); K74.60 Unspecified cirrhosis of liver; B19.10 Unspecified viral hepatitis B without hepatic coma; F31.9 Bipolar disorder, unspecified; M54.9 Dorsalgia, unspecified; G89.29 Other chronic pain; D64.9 Anemia, unspecified; F17.200 Nicotine dependence, unspecified, uncomplicated

== ENCOUNTER 2021-05-17 13:35 | Emergency (ER) | payer OTHER, MEDICAID ==
[~2021-05-17] VITALS: Ht 167.6 cm; Wt 81.1 kg
[~2021-05-17 13:35] MED LIST changes: +DOXY-443 PO; -DOXY100C37 PO
[2021-05-17 13:48] VITALS: BP 136/80
[2021-05-17] MEDS ORDERED: PANTOPRAZOLE 40MG VIAL (C9113 PER 1) IV ONE (14:00)
[2021-05-17 14:20] LABS: BASO % 0.7 % (0.0-1.0); EOS # 0.4 10^3/uL (0.0-0.5); HEMATOCRIT 40.5 % (36.0-47.0); LYMPH # 3.2 10^3/uL (1.5-5.0); LYMPH % 53.1 % (24.0-44.0); MEAN CORPUSCULAR HEMOGLOBIN 33.7 pg (27.0-33.0); MEAN CORPUSCULAR HGB CONC 34.6 g/dl (32.0-36.5); MEAN CORPUSCULAR VOLUME 97.6 fl (80.0-96.0); MONO # 0.4 10^3/uL (0.0-0.8); MONO % 6.8 % (2.0-8.0); NEUTROPHILS % 33.1 % (36.0-66.0); PLATELET COUNT, AUTOMATED 103 10^3/uL (150-450); RED BLOOD COUNT 4.15 10^6/uL (4.00-5.40)
[2021-05-17] MEDS ORDERED: ISOVUE-370 76% 100ML VIAL As Ordered ONE (14:34)
[2021-05-17 15:05] LABS: ACETAMINOPHEN LEVEL < 2.0 UG/ML (10.0-30.0); ALBUMIN 3.8 GM/DL (3.2-5.2); ALT/SGPT 34 U/L (12-78); BILIRUBIN,DIRECT 0.8 MG/DL (0.0-0.2); BILIRUBIN,TOTAL 2.7 MG/DL (0.2-1.0); CK-MB VALUE MASS < 1.0 NG/ML (<3.6); CPK CREATINE PHOSPHOKINASE 135 U/L (26-192); ETHYL ALCOHOL (ETHANOL) 0.425 % (0.000-0.010); LIPASE 166 U/L (73-393); MB/CK RELATIVE INDEX 0.74 (< OR =4); SALICYLATE LEVEL < 1.7 MG/DL (5.0-30.0); TOTAL PROTEIN 6.8 GM/DL (6.4-8.2); TROPONIN I < 0.02 NG/ML (< 0.10)
== END 2021-05-17 19:06 | disposition home or self-care (01) ==
LOC: EDBD 13:35 → M ED 13:35
DX: F10.129 Alcohol abuse with intoxication, unspecified (principal); Y90.2 Blood alcohol level of 40-59 mg/100 ml; I10 Essential (primary) hypertension; B19.20 Unspecified viral hepatitis C without hepatic coma; F31.9 Bipolar disorder, unspecified; F43.10 Post-traumatic stress disorder, unspecified; K21.9 Gastro-esophageal reflux disease without esophagitis; K74.69 Other cirrhosis of liver; Z79.899 Other long term (current) drug therapy
CPT/HCPCS: 36415; 74177; 80047; 80076; 80143; 82077; 82550; 82553; 83690; 84484; 85025; 93005; 93041; 96374; 99284; C9113; Q9967

== ENCOUNTER 2021-06-29 06:31 | Emergency (ER) | payer OTHER, MEDICAID ==
[~2021-06-29 06:31] MED LIST changes: -DOXY-443 PO; +DOXY1CAP62 PO
[2021-06-29 06:41] VITALS: BP 115/61
== END 2021-06-29 07:15 | disposition left against medical advice (07) ==
LOC: M ED 06:31
DX: Z53.21 Procedure and treatment not carried out due to patient leaving prior to being seen by health care provider (principal)

== ENCOUNTER 2021-08-23 02:12 | Emergency (ER) | payer OTHER, MEDICAID ==
[~2021-08-23] VITALS: Ht 157.5 cm; Wt 86.1 kg
[2021-08-23 02:17] VITALS: BP 123/73
--- OUTSIDE RECORDS SUMMARY | 2021-08-23 02:24 | CCD ---
Author Author [facility] Address Unknown Phone Unavailable Care Team Providers Care Maintenance Services Dispatcher Name Role Phone Jyothi Tillman MD Unavailable Unavailable Jyothi Tillman MD Unavailable Unavailable Jyothi Tillman MD Unavailable Unavailable Jyothi Tillman MD Unavailable Unavailable Jyothi Tillman MD Unavailable Unavailable Jyothi Tillman MD Unavailable Unavailable Jyothi Tillman MD Unavailable Unavailable Jyothi Tillman MD Unavailable Unavailable Jyothi Tillman MD Unavailable Unavailable Jyothi Tillman MD Unavailable Unavailable Jyothi Tillman MD Unavailable Unavailable Jyothi Tillman MD Unavailable Unavailable Jyothi Tillman MD Unavailable Unavailable Jyothi Tillman MD Unavailable Unavailable Jyothi Tillman MD Unavailable Unavailable Jyothi Tillman MD Unavailable Unavailable Jyothi Tillman MD Unavailable Unavailable Jyothi Tillman MD Unavailable Unavailable Jyothi Tillman MD Unavailable Unavailable Jyothi Tillman MD Unavailable Unavailable Jyothi Tillman MD Unavailable Unavailable Jyothi Tillman MD Unavailable Unavailable Jyothi Tillman MD Unavailable Unavailable Jyothi Tillman MD Unavailable Unavailable Jyothi Tillman MD Unavailable Unavailable Jyothi Tillman MD Unavailable Unavailable Jyothi Tillman MD Unavailable Unavailable Jyothi Tillman MD Unavailable Unavailable Jyothi Tillman MD Unavailable Unavailable Jyothi Tillman MD Unavailable Unavailable Jyothi Tillman MD Unavailable Unavailable Jyothi Tillman MD Unavailable Unavailable Jyothi Tillman MD Unavailable Unavailable Jyothi Tillman MD Unavailable Unavailable Jyothi Tillman MD Unavailable Unavailable Jyothi Tillman MD Unavailable Unavailable Jyothi Tillman MD Unavailable Unavailable Jyothi Tillman MD Unavailable Unavailable Jyothi Tillman MD Unavailable Unavailable Jyothi Tillman MD Unavailable Unavailable Jyothi Tillman MD Unavailable Unavailable Jyothi Tillman MD Unavailable Unavailable Jyothi Tillman MD Unavailable Unavailable Jyothi Tillman MD Unavailable Unavailable Jyothi Tillman MD Unavailable Unavailable Jyothi Tillman MD Unavailable Unavailable Jyothi Tillman MD Unavailable Unavailable Jyothi Tillman MD Unavailable Unavailable Jyothi Tillman MD Unavailable Unavailable Jyothi Tillman MD Unavailable Unavailable Jyothi Tillman MD Unavailable Unavailable Jyothi Tillman MD Unavailable Unavailable Jyothi Tillman MD Unavailable Unavailable Jyothi Tillman MD Unavailable Unavailable Jyothi Tillman MD Unavailable Unavailable Jyothi Tillman MD Unavailable Unavailable Jyothi Tillman MD Unavailable Unavailable Jyothi Tillman MD Unavailable Unavailable Jyothi Tillman MD Unavailable Unavailable Jyothi Tillman MD Unavailable Unavailable Jyothi Tillman MD Unavailable Unavailable Jyothi Tillman MD Unavailable Unavailable Jyothi Tillman MD Unavailable Unavailable Jyothi Tillman MD Unavailable Unavailable Jyothi Tillman MD Unavailable Unavailable Jyothi Tillman MD Unavailable Unavailable Jyothi Tillman MD Unavailable Unavailable Jyothi Tillman MD Unavailable Unavailable Jyothi Tillman MD Unavailable Unavailable Jyothi Tillman MD Unavailable Unavailable Jyothi Tillman MD Unavailable Unavailable Jyothi Tillman MD Unavailable Unavailable Jyothi Tillman MD Unavailable Unavailable Jyothi Tillman MD Unavailable Unavailable Jyothi Tillman MD Unavailable Unavailable Jyothi Tillman MD Unavailable Unavailable Jyothi Tillman MD Unavailable Unavailable Jyothi Tillman MD Unavailable Unavailable Jyothi Tillman MD Unavailable Unavailable Jyothi Tillman MD Unavailable Unavailable Jyothi Tillman MD Unavailable Unavailable Jyothi Tillman MD Unavailable Unavailable Jyothi Tillman MD Unavailable Unavailable Jyothi Tillman MD Unavailable Unavailable Jyothi Tillman MD Unavailable Unavailable Jyothi Tillman MD Unavailable Unavailable Jyothi Tillman MD Unavailable Unavailable Jyothi Tillman MD Unavailable Unavailable Jyothi Tillman MD Unavailable Unavailable Jyothi Tillman MD Unavailable Unavailable Jyothi Tillman MD Unavailable Unavailable Jyothi Tillman MD Unavailable Unavailable Jyothi Tillman MD Unavailable Unavailable Velasquez, [place]vel[place] Heydi Unavailable Unavailable Velasquez, [place] Heydi Unavailable Unavailable Velasquez, [place] Heydi Unavailable Unavailable Velasquez, [place] Heydi Unavailable Unavailable Velasquez, [place] Heydi Unavailable Unavailable Velasquez, [place] Heydi Unavailable Unavailable Velasquez, [place] Heydi Unavailable Unavailable Velasquez, [place] Heydi Unavailable Unavailable Velasquez, [place] Heydi Unavailable Unavailable Velasquez, [place] Heydi Unavailable Unavailable Velasquez, [place] Heydi Unavailable Unavailable Velasquez, [place] Heydi Unavailable Unavailable Velasquez, [place] Heydi Unavailable Unavailable Re-disclosure Warning The records that you are about to access may contain information from federally-assisted alcohol or drug abuse programs. If such information is present, then the following federally mandated warning applies: This information has been disclosed to you from records protected by federal confidentiality rules (42 CFR part 2). The federal rules prohibit you from making any further disclosure of this information unless further disclosure is expressly permitted by the written consent of the person to whom it pertains or as otherwise permitted by 42 CFR part 2. A general authorization for the release of medical or other information is NOT sufficient for this purpose. The Federal rules restrict any use of the information to criminally investigate or prosecute any alcohol or drug abuse patient.The records that you are about to access may contain highly sensitive health information, the redisclosure of which is protected by Article 27-F of the [facility] Public Health law. If you continue you may have access to information: Regarding HIV / AIDS; Provided by facilities licensed or operated by the [facility] Office of Mental Health; or Provided by the [facility] Office for People With Developmental Disabilities. If such information is present, then the following [facility] mandated warning applies: This information has been disclosed to you from confidential records which are protected by state law. State law prohibits you from making any further disclosure of this information without the specific written consent of the person to whom it pertains, or as otherwise permitted by law. Any unauthorized further disclosure in violation of state law may result in a fine or shelter sentence or both. A general authorization for the release of medical or other information is NOT sufficient authorization for further disc losure. Allergies and Adverse Reactions Type Description Substance Reaction Status Data Source(s ) Allergy to substance Allergy to substance Allergy to substance DONNA ([facility]) Allergy to substance Allergy to substance Allergy to substance DONNA ([facility]) Family History Family Member Name Family Member Gender Family Member Status Date o f Status Description Data Source(s) Unknown Unknown Problem MEDENT ([facility], ) BROTHER Encounters Encounter Providers Location Date Indications Data Source(s ) Unknown [address] [facility] [address] 03/03/2021 12:00:00 AM EDT eCW1 ([facility]) Outpatient [address] [facility] [place] [address] 02/17/2021 12:00:00 AM EDT eCW1 ([facility]) Unknown [address] [facility] [place] [address] 02/09/2021 12:00:00 AM EDT eCW1 ([facility]) Eliezer Tillman MD: [address] [place] [address], Ph. Attender: Eliezer Tillman MD [facility] 02/02/2021 12:00:00 AM EDT DONNA ([facility]) NAVEEN HutchinsC: [address] [place] [address], Ph. Attender: Heydi Velasquez [facility] 01/07/2021 12:00:00 AM EST DONNA ([facility]) NAVEEN HutchinsC: [address] [place] [address], Ph. Attender: Heydi Velasquez [facility] 01/07/2021 12:00:00 AM EST DONNA ([facility]) Unknown [address] [facility] [address] 01/02/2021 12:00:00 AM EST eCW1 ([facility]) Unknown [address] [facility] [address] 12/15/2020 12:00:00 AM EST eCW1 ([facility]) Immunizations Vaccine Date Status Description Data Source(s) COVID-19, mRNA, LNP-S, PF, 100 mcg/0.5 mL dose 02/02/2021 05 :06:15 PM EDT completed .5 mL DONNA ([facility]) COVID-19 VACCINE Moderna 02/02/2021 12:00:00 AM EDT completed [facility] Vaccine Series Complete: YESThis Data wa s Submitted to [facility] Via [employer]. COVID-19, mRNA, LNP-S, PF, 100 mcg/0.5 mL dose 01/07/2021 10 :11:19 AM EST completed .5 mL DONNA ([facility]) COVID-19, mRNA, LNP-S, PF, 100 mcg/0.5 mL dose 01/07/2021 10 :11:19 AM EST completed .5 mL DONNA ([facility]) COVID-19 VACCINE Moderna 01/07/2021 12:00:00 AM EST completed [facility] Vaccine Series Complete: NOThis Data was Submitted to [facility] Via [employer]. Medications Medication Brand Name Start Date Product Form Dose Route Admi nistrative Instructions Pharmacy Instructions Status Indications Reaction Description Data Source(s) 20 mg 02/18/2021 12:00:00 AM EDT tablet 30 TAKE ONE TABLET BY MOUTH EVERY DAY TAKE ONE TABLET BY MOUTH EVERY DAY SOLD: 02/19/2021 [facility] 1 mg 02/18/2021 12:00:00 AM EDT tablet 30 TAKE ONE TABLET BY MOUTH EVERY DAY TAKE ONE TABLET BY MOUTH EVERY DAY SOLD: 02/19/2021 [facility] pantoprazole 40 MG Delayed Release Oral Tablet PANTOPRAZOLE SODIUM 02/18/2021 12:00:00 AM EDT tablet,delayed release (DR/EC) 60 T MAXIMINO ONE TABLET BY MOUTH TWICE A DAY TAKE ONE TABLET BY MOUTH TWICE A DAY SOLD: 02/19/2021 [facility] 25 mg 02/18/2021 12:00:00 AM EDT tablet 30 TAKE ONE TABLET BY MOUTH EVERY DAY TAKE ONE TABLET BY MOUTH EVERY DAY SOLD: 02/19/2021 [facility] Furosemide 20 MG Oral Tablet Furosemide 20 MG 02/17/2021 12:00:00 A M EDT 1.0 {tablet} active Furosemide 20 MG eCW1 ( [facility]) Furosemide 20 MG Oral Tablet Furosemide 20 MG 02/17/2021 12:00:00 A M EDT 1.0 {tablet} active Furosemide 20 MG eCW1 ( [facility]) 20 mg 02/07/2021 12:00:00 AM EDT tablet 20 TAKE THREE TABLETS BY MOUTH EVERY DAY FOR 3 DAYS THEN 2 TABLETS DAILY FOR 4 DAYS THEN 1 TAB. DAILY FOR 3 DAYS TAKE THREE TABLETS BY MOUTH EVERY DAY FOR 3 DAYS THEN 2 TABLETS DAILY FOR 4 DAYS THEN 1 TAB. DAILY FOR 3 DAYS SOLD: 02/07/2021 [facility] 17 mcg/actuation 02/07/2021 12:00:00 AM EDT HFA aerosol inha ler 12 USE 2 PUFFS FOUR TIMES A DAY USE 2 PUFFS FOUR TIMES A DAY SOLD: 02/07/2021 [facility] 100 mg 02/07/2021 12:00:00 AM EDT capsule 20 TAKE ONE CAPSULE BY MOUTH EVERY 12 HOURS TAKE ONE CAPSULE BY MOUTH EVERY 12 HOURS SOLD: 02/07/2021 [facility] Insurance Providers Payer name Policy type / Coverage type Policy ID Covered libertarian ID Covered libertarian's relationship to melendez Policy Melendez Plan Information [facility] [id number] SP [id number] [facility] PLAN [id number] [facility] I [id number] Self [id number] [facility] COMMUNITY PLAN [facility] [id number] SP [id number] MEDICARE [id number] SP [id number] A MEDICARE C [id number] S [id number] MEDICAID M [id number] S [id number] MEDICAID [id number] SP [id number] Hmo Blue Option/Medicaid Health Maintenance Organization (HMO) V [id number] Self [id number] Medicaid [place] Medigap Part B [id number] Self [id number] Medicare [facility] Medicare Primary [id number] Self [id number] ANSI-Medicare Part B [id number] ANSI-Medicaid [id number] ANSI-Medicaid [id number] ANSI-Medicare Part B [id number] ANSI-Medicaid [id number] ANSI-Medicaid [id number] ANSI-Medicare Part B [id number] ANSI-Medicaid [id number] ANSI-Medicaid [id number] ANSI-Medicare Part B [id number] ANSI-Medicaid [id number] ANSI-Medicaid [id number] ANSI-Medicaid [id number] ANSI-Medicare Part B [id number] ANSI-Medicaid [id number] Hmo Blue Option/Medicaid Health Maintenance Organization (HMO) V [id number] Self [id number] Medicaid [place] Medigap Part B [id number] ...[id number] Self [id number] Medicare [facility] Medicare Primary [id number] ...[id number] Self [id number] ANSI-Medicaid [id number] ANSI-Medicaid [id number] ANSI-Medicare Part B [id number] ANSI-Medicare Part B [id number] ANSI-Medicaid [id number] ANSI-Medicaid [id number] ANSI-Medicare Part B [id number] ANSI-Medicaid [id number] ANSI-Medicaid [id number] ANSI-Medicaid [id number] ANSI-Medicaid [id number] ANSI-Medicare Part B [id number] ANSI-Medicaid [id number] ANSI-Medicaid [id number] ANSI-Medicare Part B [id number] Hmo Blue Option/Medicaid Health Maintenance Organization (HMO) V [id number] Self [id number] Medicaid [place] [id number] Self [id number] Medicare [facility] Medicare Primary [id number] Self [id number] ANSI-Medicaid [id number] ANSI-Medicaid [id number] ANSI-Medicare Part B [id number] ANSI-Medicare Part B [id number] ANSI-Medicaid [id number] ANSI-Medicaid [id number] MEDICARE [id number] SP [id number] ANSI-Medicaid [id number] ANSI-Medicaid [id number] ANSI-Medicare Part B [id number] Hmo Blue Option/Medicaid Health Maintenance Organization (HMO) V [id number] Self [id number] Medicaid [place] [id number] Self [id number] [place] Medicare Primary [id number] Self [id number] MEDICARE C [id number] S [id number] A MEDICAID UNAVAILABLE [facility] O [id number] S [id number] Hmo Blue Option/Medicaid Health Maintenance Organization (HMO) [id number] Self [facility] Health Maintenance Organization (HMO) [id number] Self [facility] [id number] SELF PAY [id number] SP [id number] BLUE CROSS RAMIREZ PLAN [id number] SP [id number] [employer] P [id number] S [id number] [employer] GOLD [id number] SP [id number] [place] [id number] SP [id number] [employer] GOLD [id number] SP [id number] MEDICARE [id number] SP [id number] EMEDNY [id number] SP [id number] Problems, Conditions, and Diagnoses No Information Surgeries/Procedures No Information Results ID Date Data Source [id number] 02/07/2021 07:44:00 AM EDT [facility] Name Value Range Interpretation Code Description Data Randi rce(s) Supporting Document(s) SARS-CoV-2 (COVID 19) NEGATIVE - SARS-CoV-2 (COVID19) [facility] This lab was ordered by [facility] a nd reported by [facility]. Procedure Social History Code Duration Value Status Description Data Source(s ) Smoking 03/02/2021 12:00:00 AM EDT Current Smoker completed Curre nt Smoker eCW1 ([facility]) Smoking 02/16/2021 12:00:00 AM EDT Current Smoker completed Curre nt Smoker eCW1 ([facility]) Vital Signs ID Date Data Source UNK Name Value Range Interpretation Code Description Data Source(s) Body height 65 [in_i] 65 [in_i] eCW1 ([facility]) Heart rate 104 /min 104 /min eCW1 ([facility]) Body mass index (BMI) [Ratio] 31.12 kg/m2 31.12 kg/m2 eCW1 ([facility]) Body weight 187 [lb_av] 187 [lb_av] eCW1 ([facility]) Respiratory rate 21 /min 21 /min eCW1 ([facility]) Body temperature 96.7 [degF] 96.7 [degF] eCW1 ( [facility]) Systolic blood pressure 132 mm[Hg] 132 mm[Hg] e CW1 ([facility]) Diastolic blood pressure 74 mm[Hg] 74 mm[Hg] eCW1 ([facility]) Patient Treatment Plan of Care Planned Activity Planned Date Details Description Data Source (s) Furosemide 20 MG Oral Tablet 02/17/2021 12:00:00 AM EDT eCW1 ([facility])
--- OUTSIDE RECORDS SUMMARY | 2021-08-23 02:40 | CCD ---
Author Author [facility] Address Unknown Phone Unavailable Care Team Providers Care Cofounder Name Role Phone Jyothi Tillman MD Unavailable [...] Unavailable Jyothi Tillman MD Unavailable Unavailable Velasquez, Voss Heydi Unavailable Unavailable Velasquez, Voss Heydi Unavailable Unavailable Velasquez, Voss Heydi Unavailable Unavailable Velasquez, Voss Heydi Unavailable Unavailable Velasquez, Voss Heydi Unavailable Unavailable Velasquez, Voss Heydi Unavailable Unavailable Velasquez, Voss Heydi Unavailable Unavailable Velasquez, Voss Heydi Unavailable Unavailable Velasquez, Voss Heydi Unavailable Unavailable Velasquez, Voss Heydi Unavailable Unavailable Velasquez, Voss Heydi Unavailable Unavailable Velasquez, Voss Heydi Unavailable Unavailable Velasquez, Voss Heydi Unavailable Unavailable Re-disclosure Warning The records [...] is protected by Article 27-F of the [facility] Public Health law. If you continue you may have access to information: Regarding HIV / AIDS; Provided by facilities licensed or operated by the [facility] Office of Mental Health; or Provided by the [facility] Office for People With Developmental Disabilities. If such information is present, then the following [facility] mandated warning applies: This information has [...] law may result in a fine or snf sentence or both. A general authorization for the release of medical or other information is NOT sufficient authorization for further disc losure. Allergies and Adverse Reactions Type Description Substance Reaction Status Data Source(s ) Allergy to substance Allergy to substance Allergy to substance DONNA ([facility]) Allergy to substance Allergy to substance Allergy to substance DONNA ([facility]) Family History Family Member Name Family Member Gender Family Member Status Date o f Status Description Data Source(s) Unknown Unknown Problem MEDENT ([facility], ) BROTHER Encounters Encounter Providers Location Date Indications Data Source(s ) [place] [address] [facility] [address] 03/03/2021 12:00:00 AM EDT eCW1 ([facility]) Outpatient [address] [facility] [place] [address] 02/17/2021 12:00:00 AM EDT eCW1 ([facility]) Unknown [address] [facility] [place] [address] 02/09/2021 12:00:00 AM EDT eCW1 ([facility]) Eliezer Tillman MD: [address] [place] [address], Ph. Attender: Eliezer Tillman MD [facility] Medical 02/02/2021 12:00:00 AM EDT DONNA ([facility]) NAVEEN HutchinsC: [address] [place] [address], Ph. Attender: Heydi Velasquez [facility] 01/07/2021 12:00:00 AM EST DONNA ([facility]) NAVEEN HutchinsC: [address] [place] [address], Ph. Attender: Heydi Velasquez [facility] Medical 01/07/2021 12:00:00 AM EST DONNA ([facility]) Unknown [address] [facility] [address] 01/02/2021 12:00:00 AM EST eCW1 ([facility]) [place] [address] [facility] [address] 12/15/2020 12:00:00 AM EST eCW1 ([facility]) Immunizations Vaccine Date Status Description Data Source(s) COVID-19, mRNA, LNP-S, PF, 100 mcg/0.5 mL dose 02/02/2021 05 :06:15 PM EDT completed .5 mL DONNA ([facility]) COVID-19 VACCINE Moderna 02/02/2021 12:00:00 AM EDT completed [place] Vaccine Series Complete: YESThis Data wa s Submitted to [facility] Via [employer]. COVID-19, mRNA, LNP-S, PF, 100 mcg/0.5 mL dose 01/07/2021 10 :11:19 AM EST completed .5 mL DONNA ([facility]) COVID-19, mRNA, LNP-S, PF, 100 mcg/0.5 mL dose 01/07/2021 10 :11:19 AM EST completed .5 mL DONNA ([facility]) COVID-19 VACCINE Moderna 01/07/2021 12:00:00 AM EST completed [facility] Vaccine Series Complete: NOThis Data was Submitted to [facility] [employer]. Medications Medication Brand Name Start Date Product [...] {tablet} active Furosemide 20 MG eCW1 ( [facility]) Furosemide 20 MG Oral Tablet Furosemide 20 MG 02/17/2021 12:00:00 A M EDT 1.0 {tablet} active Furosemide 20 MG eCW1 ( [facility]) 20 mg 02/07/2021 12:00:00 AM EDT tablet [...] type / Coverage type Policy ID Covered republican ID Covered republican's relationship to melendez Policy Melendez Plan Information [facility] BLUE [id number] SP [id number] PL[facility] [id number] [facility] I [id number] Self [id number] [facility] COMMUNITY PLAN [facility] [id number] SP [id number] MEDICARE [id number] SP [id number] A MEDICARE C [id number] S [id number] MEDICAID M [id number] S [id number] MEDICAID [id number] SP [id number] Hmo Blue Option/Medicaid Health Maintenance Organization (HMO) V [id number] Self [id number] Medicaid [place] Med[place] Part [place] [id number] Self [id number] Medicare [facility] Medicare Primary [id number] Self [id number] ANSI-Medicare Part B [id number] ANSI-Medicaid [id number] ANSI-Medicaid [id number] ANSI-Medicare Part B [id number] ANSI-Medicaid [id number] ANSI-Medicaid [id number] ANSI-Medicare Part B [id number] ANSI-Medicaid [id number] ANSI-Medicaid [id number] ANSI-Medicare Part B [id number] ANSI-Medicaid [id number] ANSI-Medicaid [id number] ANSI-Medicaid [id number] ANSI-Medicare Part B [id number] ANSI-Medicaid [id number] Hmo Blue Option/Medicaid Health Maintenance Organization (HMO) V [id number] Self [id number] Medicaid [place] [id number] ...[id number] Self [id number] Medicare [facility] Medicare Primary [id number] Self [id number] ANSI-Medicaid [id number] ANSI-Medicaid [id number] ANSI-Medicare Part B [id number] ANSI-Medicare Part B [id number] ANSI-Medicaid [id number] ANSI-Medicaid [id number] ANSI-Medicare Part B [id number] ANSI-Medicaid [id number] ANSI-Medicaid [id number] ANSI-Medicaid [id number] ANSI-Medicaid [id number] ANSI-Medicare Part B [id number] ANSI-Medicaid [id number] ANSI-Medicaid [id number] ANSI-Medicare Part B [id number] Hmo Blue Option/Medicaid Health Maintenance Organization (HMO) V [id number] Self [id number] Medicaid [place] [id number] Self [id number] Medicare [facility] Medicare Primary [id number] Self [id number] ANSI-Medicaid [id number] ANSI-Medicaid [id number] ANSI-Medicare Part B [id number] ANSI-Medicare Part B [id number] ANSI-Medicaid [id number] ANSI-Medicaid [id number] MEDICARE [id number] SP [id number] A ANSI-Medicaid [id number] ANSI-Medicaid [id number] ANSI-Medicare Part B [id number] Hmo Blue Option/Medicaid Health Maintenance Organization (HMO) V [id number] Self [id number] [place] [id number] Self [id number] [place] [facility] Medicare Primary [id number] Self [id number] MEDICARE C [id number] S [id number] A MEDICAID UNAVAILABLE [facility]ILA [facility] O [id number] S [id number] Hmo Blue Option/Medicaid Health Maintenance Organization (HMO) [id number] Self [facility] Health Maintenance Organization (HMO) [id number] Self [facility] [id number] SP [id number] SELF PAY [id number] SP [id number] BLUE CROSS RAMIRE[employer] PLAN [id number] SP [id number] [employer] P [id number] S [id number] [employer] G[employer] [id number] SP [id number] [place] [id number] SP [id number] [employer] GOLD [id number] SP [id number] MEDICARE [id number] SP [id number] EMEDNY [id number] SP [id number] Problems, Conditions, and Diagnoses No Information Surgeries/Procedures No Information Results ID Date Data Source [id number] 02/07/2021 07:44:00 AM EDT [place] Name Value Range Interpretation Code Description Data Randi rce(s) Supporting Document(s) SARS-CoV-2 (COVID 19) NEGATIVE - SARS-CoV-2 (COVID19) [facility] This lab was ordered by [facility] a nd reported by [facility]. Procedure Social History Code Duration Value Status Description Data Source(s ) Smoking 03/02/2021 12:00:00 AM EDT Current Smoker completed Curre nt Smoker eCW1 ([facility]) Smoking 02/16/2021 12:00:00 AM EDT Current Smoker completed Curre nt Smoker eCW1 ([facility]) Vital Signs ID Date Data Source UNK Name Value Range Interpretation Code Description Data Source(s) Body height 65 [in_i] 65 [in_i] eCW1 ([facility]) Heart rate 104 /min 104 /min eCW1 ([facility]) Respiratory rate 21 /min 21 /min eCW1 ([facility]) Body weight 187 [lb_av] 187 [lb_av] eCW1 ([facility]) Body mass index (BMI) [Ratio] 31.12 kg/m2 31.12 kg/m2 eCW1 ([facility]) Body temperature 96.7 [degF] 96.7 [degF] eCW1 ( [facility]) Systolic blood pressure 132 mm[Hg] 132 mm[Hg] e CW1 ([facility]) Diastolic blood pressure 74 mm[Hg] 74 mm[Hg] eCW1 ([facility]) Patient Treatment Plan of Care Planned Activity Planned Date Details Description Data Source (s) Furosemide 20 MG Oral Tablet 02/17/2021 12:00:00 AM EDT eCW1 ([facility])
== END 2021-08-23 02:26 | disposition left against medical advice (07) ==
LOC: M ED 02:12
DX: Z53.29 Procedure and treatment not carried out because of patient's decision for other reasons (principal)

== ENCOUNTER 2021-10-23 04:22 | Emergency (ER) | payer OTHER, MEDICAID ==
[~2021-10-23] VITALS: Ht 165.1 cm; Wt 81.8 kg
[~2021-10-23 04:22] MED LIST changes: +DOXY-443 PO; -DOXY1CAP62 PO
[2021-10-23 04:23] VITALS: BP 134/72
[2021-10-23] MEDS ORDERED: ACET-683 PO (04:28)
[2021-10-23] MEDS ORDERED: PERCOCET 5MG/325MG TAB PO ONE (07:25)
[2021-10-23] MEDS ORDERED: OXYC1TAB23 PO (08:18)
== END 2021-10-23 09:25 | disposition home or self-care (01) ==
LOC: M ED 04:22
DX: S92.325A Nondisplaced fracture of second metatarsal bone, left foot, initial encounter for closed fracture (principal); S92.335A Nondisplaced fracture of third metatarsal bone, left foot, initial encounter for closed fracture; S92.345A Nondisplaced fracture of fourth metatarsal bone, left foot, initial encounter for closed fracture; W00.0XXA Fall on same level due to ice and snow, initial encounter; Y92.018 Other place in single-family (private) house as the place of occurrence of the external cause; I10 Essential (primary) hypertension; R56.9 Unspecified convulsions; B19.20 Unspecified viral hepatitis C without hepatic coma; K74.60 Unspecified cirrhosis of liver; Z78.0 Asymptomatic menopausal state

== ENCOUNTER → 2021-12-01 | Outpatient (CLI) | payer OTHER, MEDICAID ==
[~2021-12-01] MED LIST changes: +ACET-683 PO; +OXYC1TAB23 PO
[2021-12-01 15:47] LABS: HEMATOCRIT 39.4 % (36.0-47.0); HEMOGLOBIN 13.2 g/dl (12.0-15.5); MEAN CORPUSCULAR HEMOGLOBIN 33.8 pg (27.0-33.0); MEAN CORPUSCULAR HGB CONC 33.5 g/dl (32.0-36.5); PLATELET COUNT, AUTOMATED 117 10^3/uL (150-450); WHITE BLOOD COUNT 4.3 10^3/uL (4.0-10.0)
[2021-12-01 16:00] LABS: INR 1.09; PROTHROMBIN TIME 14.5 SECONDS (12.7-14.5)
[2021-12-01 17:10] LABS: ALBUMIN 3.5 GM/DL (3.2-5.2); ALT/SGPT 25 U/L (12-78); BILIRUBIN,TOTAL 1.8 MG/DL (0.2-1.0); BLOOD UREA NITROGEN 10 MG/DL (7-18); CARBON DIOXIDE LEVEL 26 MEQ/L (21-32); CHLORIDE LEVEL 112 MEQ/L (98-107); CREATININE FOR GFR 0.53 MG/DL (0.55-1.30); GLOMERULAR FILTRATION RATE > 60.0 (>51); GLUCOSE, FASTING 102 MG/DL (70-100); POTASSIUM SERUM 4.1 MEQ/L (3.5-5.1); SODIUM LEVEL 142 MEQ/L (136-145); TOTAL PROTEIN 6.8 GM/DL (6.4-8.2); VITAMIN B12 LEVEL 510 PG/ML
== END ==
LOC: M PLALAB 14:21
PROVIDERS: ATTEND Family Medicine
DX: K70.30 Alcoholic cirrhosis of liver without ascites (principal)

== ENCOUNTER → 2021-12-03 | Outpatient (CLI) | payer OTHER, MEDICAID | LOC: M SOG 14:23 | PROVIDERS: ATTEND Orthopaedic Surgery Sports Medicine | DX: S92.325A Nondisplaced fracture of second metatarsal bone, left foot, initial encounter for closed fracture (principal); W18.30XA Fall on same level, unspecified, initial encounter; Y92.009 Unspecified place in unspecified non-institutional (private) residence as the place of occurrence of the external cause ==

== ENCOUNTER → 2021-12-07 | Outpatient (RCR) | payer OTHER, MEDICAID | LOC: M OUTALCOH 11-17 13:51 | PROVIDERS: ATTEND Psychiatry & Neurology Psychiatry | DX: F10.10 Alcohol abuse, uncomplicated (principal); F17.200 Nicotine dependence, unspecified, uncomplicated ==

== ENCOUNTER → 2021-12-24 | Outpatient (CLI) | payer OTHER, MEDICAID | LOC: M RAD 07:27 | PROVIDERS: ATTEND Family Medicine | DX: K70.30 Alcoholic cirrhosis of liver without ascites (principal) ==

== ENCOUNTER 2021-12-31 09:00 | Outpatient (RCR) | payer OTHER, MEDICAID | END 2022-01-04 | LOC: M OUTALCOH 09:00 | PROVIDERS: ATTEND Psychiatry & Neurology Psychiatry | DX: F10.10 Alcohol abuse, uncomplicated (principal); F17.200 Nicotine dependence, unspecified, uncomplicated ==

== ENCOUNTER 2022-01-25 15:00 | Outpatient (RCR) | payer OTHER, MEDICAID | END 2022-02-04 | LOC: M OUTALCOH 15:00 | PROVIDERS: ATTEND Psychiatry & Neurology Psychiatry | DX: F10.10 Alcohol abuse, uncomplicated (principal); F17.200 Nicotine dependence, unspecified, uncomplicated ==

== ENCOUNTER 2022-03-01 14:00 | Outpatient (RCR) | payer OTHER, MEDICAID | END 2022-03-06 | LOC: M OUTALCOH 14:00 | PROVIDERS: ATTEND Psychiatry & Neurology Psychiatry | DX: F10.10 Alcohol abuse, uncomplicated (principal); F17.200 Nicotine dependence, unspecified, uncomplicated ==

== ENCOUNTER → 2022-04-06 | Outpatient (RCR) | payer OTHER, MEDICAID | LOC: M OUTALCOH 03-08 15:49 | PROVIDERS: ATTEND Psychiatry & Neurology Psychiatry | DX: F17.200 Nicotine dependence, unspecified, uncomplicated (principal); F10.10 Alcohol abuse, uncomplicated ==

== ENCOUNTER 2022-04-21 10:44 | Outpatient (RCR) | payer OTHER, MEDICAID | END 2022-05-06 | LOC: M OUTALCOH 10:44 | PROVIDERS: ATTEND Psychiatry & Neurology Psychiatry | DX: F10.10 Alcohol abuse, uncomplicated (principal); F17.200 Nicotine dependence, unspecified, uncomplicated ==

== ENCOUNTER 2022-05-13 15:59 | Outpatient (RCR) | payer OTHER, MEDICAID | END 2022-06-06 | LOC: M OUTALCOH 15:59 | PROVIDERS: ATTEND Psychiatry & Neurology Psychiatry | DX: F17.200 Nicotine dependence, unspecified, uncomplicated (principal); F10.10 Alcohol abuse, uncomplicated ==

== ENCOUNTER 2022-08-21 15:38 | Emergency (ER) | payer OTHER, MEDICAID ==
[2022-08-21] MEDS: NS 1,000 ML IV SCH ×2 (15:58→15:59)
[2022-08-21 16:07] LABS: BASO % 0.8 % (0.0-1.0); EOS # 0.1 10^3/uL (0.0-0.5); EOS % 2.5 % (0.0-3.0); HEMATOCRIT 40.1 % (36.0-47.0); HEMOGLOBIN 14.1 g/dl (12.0-15.5); LYMPH # 2.8 10^3/uL (1.5-5.0); LYMPH % 57.2 % (24.0-44.0); MEAN CORPUSCULAR HEMOGLOBIN 34.3 pg (27.0-33.0); MEAN CORPUSCULAR HGB CONC 35.2 g/dl (32.0-36.5); MEAN CORPUSCULAR VOLUME 97.6 fl (80.0-96.0); MONO # 0.3 10^3/uL (0.0-0.8); MONO % 5.5 % (2.0-8.0); NEUTROPHILS # 1.6 10^3/uL (1.5-8.5); NEUTROPHILS % 33.6 % (36.0-66.0); PLATELET COUNT, AUTOMATED 104 10^3/uL (150-450); RED BLOOD COUNT 4.11 10^6/uL (4.00-5.40); WHITE BLOOD COUNT 4.9 10^3/uL (4.0-10.0)
[2022-08-21 16:21] LABS: INR 1.17; PROTHROMBIN TIME 15.1 SECONDS (12.5-14.5)
[2022-08-21 17:00] LABS: ALBUMIN 4.1 GM/DL (3.2-5.2); ALT/SGPT 52 U/L (12-78); BILIRUBIN,DIRECT 1.2 MG/DL (0.0-0.2); BILIRUBIN,TOTAL 3.3 MG/DL (0.2-1.0); BLOOD UREA NITROGEN 10 MG/DL (7-18); CALCIUM LEVEL 8.4 MG/DL (8.5-10.1); CARBON DIOXIDE LEVEL 24 MEQ/L (21-32); CHLORIDE LEVEL 106 MEQ/L (98-107); CREATININE FOR GFR 0.57 MG/DL (0.55-1.30); ETHYL ALCOHOL (ETHANOL) 0.309 % (0.000-0.010); GLOMERULAR FILTRATION RATE > 60.0 (>51); GLUCOSE, FASTING 92 MG/DL (70-100); LIPASE 83 U/L (73-393); POTASSIUM SERUM 3.2 MEQ/L (3.5-5.1); SODIUM LEVEL 142 MEQ/L (136-145)
[2022-08-21] MEDS ORDERED: POTASSIUM CHLORIDE 10MEQ SR TABLET PO ONE (17:10)
== END 2022-08-21 17:50 | disposition left against medical advice (07) ==
LOC: M ED 15:38 → EDBD 15:38 → M ED 17:50
DX: R10.11 Right upper quadrant pain (principal); F10.129 Alcohol abuse with intoxication, unspecified; D64.9 Anemia, unspecified; Z53.20 Procedure and treatment not carried out because of patient's decision for unspecified reasons; B19.20 Unspecified viral hepatitis C without hepatic coma; F31.9 Bipolar disorder, unspecified; G89.29 Other chronic pain; M54.9 Dorsalgia, unspecified; F17.200 Nicotine dependence, unspecified, uncomplicated

== ENCOUNTER 2022-12-12 10:36 | Emergency (ER) | payer OTHER, MEDICAID ==
[2022-12-12 15:10] VITALS: BP 131/72
== END 2022-12-12 15:19 | disposition home or self-care (01) ==
LOC: M ED 10:36
DX: F10.129 Alcohol abuse with intoxication, unspecified (principal); F17.200 Nicotine dependence, unspecified, uncomplicated; J44.9 Chronic obstructive pulmonary disease, unspecified

== ENCOUNTER → 2022-12-21 | Outpatient (CLI) | payer OTHER, MEDICAID | LOC: M PAIN 08:00 | PROVIDERS: ATTEND Nurse Practitioner Family | DX: M96.1 Postlaminectomy syndrome, not elsewhere classified (principal); F10.20 Alcohol dependence, uncomplicated; K76.0 Fatty (change of) liver, not elsewhere classified; D64.9 Anemia, unspecified; F41.1 Generalized anxiety disorder; F40.00 Agoraphobia, unspecified; B18.2 Chronic viral hepatitis C; M54.50 Low back pain, unspecified; F17.210 Nicotine dependence, cigarettes, uncomplicated; Z79.899 Other long term (current) drug therapy ==

== ENCOUNTER 2023-01-01 22:27 | Emergency (ER) | payer OTHER, MEDICAID ==
[~2023-01-01] VITALS: Ht 165.1 cm; Wt 90.0 kg
[2023-01-01] MEDS ORDERED: NS 1,000 ML IV ONE (22:45)
[2023-01-01] MEDS ORDERED: MIDAZOLAM INJ 2MG/2ML VIAL IV STA (23:32)
[2023-01-02 02:31] VITALS: BP 113/58
== END 2023-01-02 03:40 | disposition left against medical advice (07) ==
LOC: EDBD 22:27 → M ED 22:27
DX: S02.2XXA Fracture of nasal bones, initial encounter for closed fracture (principal); Y04.8XXA Assault by other bodily force, initial encounter; Y92.009 Unspecified place in unspecified non-institutional (private) residence as the place of occurrence of the external cause; Y07.59 Other non-family member, perpetrator of maltreatment and neglect; Z53.20 Procedure and treatment not carried out because of patient's decision for unspecified reasons; F10.229 Alcohol dependence with intoxication, unspecified; F31.9 Bipolar disorder, unspecified; Z98.51 Tubal ligation status
CPT/HCPCS: 70450; 70486; 72125; 82077; 96361; 96374; 99285; J2250

== ENCOUNTER 2023-01-03 19:26 | Emergency (ER) | payer OTHER, MEDICAID ==
[~2023-01-03] VITALS: Ht 165.1 cm; Wt 87.0 kg
[2023-01-03 19:41] VITALS: BP 137/73
== END 2023-01-03 21:10 | disposition left against medical advice (07) ==
LOC: M ED 19:26
DX: Z53.21 Procedure and treatment not carried out due to patient leaving prior to being seen by health care provider (principal)

== ENCOUNTER 2023-03-11 00:01 | Emergency (ER) | payer OTHER, MEDICAID ==
[~2023-03-11] VITALS: Ht 165.1 cm; Wt 93.0 kg
[2023-03-11] MEDS ORDERED: ONDANSETRON 4MG 2ML VIAL IV ONE (00:25)
[2023-03-11] MEDS ORDERED: NS 1,000 ML IV ONE (00:25)
[2023-03-11] MEDS: MORPHINE 4 MG/ML 1ML VIAL IV PRN ×2 (00:30→01:02)
[2023-03-11] MEDS ORDERED: ISOVUE-370 76% 100ML VIAL As Ordered ONE (00:33)
[2023-03-11 00:44] LABS: BASO % 0.7 % (0.0-1.0); EOS # 0.2 10^3/uL (0.0-0.5); HEMATOCRIT 40.6 % (36.0-47.0); HEMOGLOBIN 13.9 g/dl (12.0-15.5); LYMPH # 3.2 10^3/uL (1.5-5.0); LYMPH % 57.8 % (24.0-44.0); MEAN CORPUSCULAR HEMOGLOBIN 35.6 pg (27.0-33.0); MEAN CORPUSCULAR HGB CONC 34.2 g/dl (32.0-36.5); MEAN CORPUSCULAR VOLUME 104.1 fl (80.0-96.0); MONO # 0.4 10^3/uL (0.0-0.8); MONO % 6.6 % (2.0-8.0); NEUTROPHILS # 1.8 10^3/uL (1.5-8.5); NEUTROPHILS % 31.5 % (36.0-66.0); PLATELET COUNT, AUTOMATED 102 10^3/uL (150-450); WHITE BLOOD COUNT 5.6 10^3/uL (4.0-10.0)
[2023-03-11 00:54] LABS: CPK CREATINE PHOSPHOKINASE 102 U/L (34-145)
[2023-03-11 00:55] LABS: ALBUMIN 3.8 G/DL (3.2-5.2); ALKALINE PHOSPHATASE 131 U/L (46-116); ALT/SGPT 41 U/L (7.0-40); AST/SGOT 73 U/L (<34); BILIRUBIN,DIRECT 1.1 MG/DL (<0.4); BILIRUBIN,TOTAL 2.1 MG/DL (0.3-1.2); BLOOD UREA NITROGEN 5 MG/DL (9-23); CALCIUM LEVEL 8.3 MG/DL (8.5-10.1); CARBON DIOXIDE LEVEL 24 MMOL/L (20-31); CHLORIDE LEVEL 114 MMOL/L (98-107); CREATININE FOR GFR 0.55 MG/DL (0.55-1.30); GLOMERULAR FILTRATION RATE > 60.0 (>51); GLUCOSE, FASTING 98 MG/DL (60-100); POTASSIUM SERUM 3.5 MMOL/L (3.5-5.1); SALICYLATE LEVEL < 3.0 MG/DL (<30); SODIUM LEVEL 147 MMOL/L (136-145); TOTAL PROTEIN 6.5 G/DL (5.7-8.2)
[2023-03-11 00:57] LABS: THYROID STIMULATING HORMONE 1.169 uIU/ML (0.55-4.78)
[2023-03-11 01:12] LABS: ACETAMINOPHEN LEVEL < 2.0 UG/ML (10.0-20.0); ETHYL ALCOHOL (ETHANOL) 0.346 % (0.000-0.010)
[2023-03-11 01:34] LABS: CANNABINOIDS URINE NEGATIVE (NEGATIVE); METHADONE URINE NEGATIVE (NEGATIVE); PHENCYCLIDINE URINE NEGATIVE (NEGATIVE)
[2023-03-11 01:35] LABS: AMPHETAMINES LEVEL URINE NEGATIVE (NEGATIVE); BARBITURATES URINE NEGATIVE (NEGATIVE); BENZODIAZEPINES URINE NEGATIVE (NEGATIVE); COCAINE METABOLITE URINE NEGATIVE (NEGATIVE)
[2023-03-11 01:40] LABS: OPIATES URINE POSITIVE (NEGATIVE)
[2023-03-11 09:21] VITALS: BP 145/76
== END 2023-03-11 09:31 | disposition home or self-care (01) ==
LOC: M ED 00:01 → EDBD 00:01 → M ED 09:31
DX: F10.129 Alcohol abuse with intoxication, unspecified (principal); K70.30 Alcoholic cirrhosis of liver without ascites; F17.200 Nicotine dependence, unspecified, uncomplicated
CPT/HCPCS: 70450; 71260; 72125; 74177; 80048; 80076; 80143; 80307; 82077; 82550; 84443; 85025; 87635; 93005; 93041; 94760; 96365; 96375; 99285; J2405; Q9967

== ENCOUNTER 2023-03-14 17:55 | Emergency (ER) | payer OTHER, MEDICAID ==
[~2023-03-14] VITALS: Ht 165.1 cm; Wt 95.5 kg
[2023-03-14 18:12] VITALS: BP 115/61
[2023-03-14] MEDS ORDERED: NS 1,000 ML IV ONE (18:35)
[2023-03-14 19:04] LABS: BLOOD UREA NITROGEN 7 MG/DL (9-23); CALCIUM LEVEL 8.4 MG/DL (8.5-10.1); CARBON DIOXIDE LEVEL 27 MMOL/L (20-31); CHLORIDE LEVEL 106 MMOL/L (98-107); CK-MB VALUE MASS < 1.0 NG/ML (<3.6); CREATININE FOR GFR 0.59 MG/DL (0.55-1.30); GLOMERULAR FILTRATION RATE > 60.0 (>51); GLUCOSE, FASTING 114 MG/DL (60-100); POTASSIUM SERUM 3.3 MMOL/L (3.5-5.1); SODIUM LEVEL 143 MMOL/L (136-145)
[2023-03-14 19:06] LABS: CPK CREATINE PHOSPHOKINASE 156 U/L (34-145); MB/CK RELATIVE INDEX 0.64 (< OR =4)
[2023-03-14 19:53] LABS: CK-MB VALUE MASS < 1.0 NG/ML (<3.6)
[2023-03-14 20:02] LABS: CPK CREATINE PHOSPHOKINASE 150 U/L (34-145); MB/CK RELATIVE INDEX 0.66 (< OR =4)
== END 2023-03-14 20:04 | disposition left against medical advice (07) ==
LOC: M ED 17:55
DX: R07.9 Chest pain, unspecified (principal); F10.120 Alcohol abuse with intoxication, uncomplicated; R94.31 Abnormal electrocardiogram [ECG] [EKG]; Z53.20 Procedure and treatment not carried out because of patient's decision for unspecified reasons; F64.9 Gender identity disorder, unspecified; K76.0 Fatty (change of) liver, not elsewhere classified; F41.9 Anxiety disorder, unspecified; B19.20 Unspecified viral hepatitis C without hepatic coma; F17.200 Nicotine dependence, unspecified, uncomplicated

== ENCOUNTER 2023-04-17 13:13 | Emergency (ER) | payer OTHER, MEDICAID ==
[~2023-04-17] VITALS: Ht 165.1 cm; Wt 68.2 kg
[2023-04-17 13:23] VITALS: TEMP 97
[2023-04-17] MEDS ORDERED: LORazepam 2 MG TAB PO PRN (13:25)
[2023-04-17 14:00] VITALS: BP 145/78; O2SAT 79
[2023-04-17] MEDS ORDERED: THIAMINE 100 MG TAB PO SCH (21:00)
[2023-04-18] MEDS ORDERED: MULTIVITAMINS/MINERALS THERAP 1 TAB PO SCH (09:00)
[2023-04-18] MEDS ORDERED: FOLIC ACID 1MG TAB PO SCH (09:00)
== END 2023-04-17 15:00 | disposition home or self-care (01) ==
LOC: EDBD 13:13 → M ED 13:13
DX: F10.129 Alcohol abuse with intoxication, unspecified (principal); D64.9 Anemia, unspecified; F41.1 Generalized anxiety disorder; B19.20 Unspecified viral hepatitis C without hepatic coma; F17.200 Nicotine dependence, unspecified, uncomplicated; Z85.05 Personal history of malignant neoplasm of liver

== ENCOUNTER 2023-04-18 12:54 | Emergency (ER) | payer OTHER, MEDICAID ==
[~2023-04-18] VITALS: Ht 152.4 cm; Wt 68.2 kg
[2023-04-18 14:54] LABS: HEMATOCRIT 38.7 % (36.0-47.0); HEMOGLOBIN 13.4 g/dl (12.0-15.5); MEAN CORPUSCULAR HEMOGLOBIN 34.3 pg (27.0-33.0); MEAN CORPUSCULAR HGB CONC 34.6 g/dl (32.0-36.5); RED BLOOD COUNT 3.91 10^6/uL (4.00-5.40); WHITE BLOOD COUNT 3.1 10^3/uL (4.0-10.0)
[2023-04-18 15:05] LABS: BENZODIAZEPINES URINE NEGATIVE (NEGATIVE); PHENCYCLIDINE URINE NEGATIVE (NEGATIVE)
[2023-04-18 15:06] LABS: BARBITURATES URINE NEGATIVE (NEGATIVE); CANNABINOIDS URINE NEGATIVE (NEGATIVE); COCAINE METABOLITE URINE NEGATIVE (NEGATIVE); METHADONE URINE NEGATIVE (NEGATIVE); OPIATES URINE NEGATIVE (NEGATIVE)
[2023-04-18 15:10] LABS: ALBUMIN 3.8 G/DL (3.2-5.2); ALKALINE PHOSPHATASE 119 U/L (46-116); ALT/SGPT 50 U/L (7.0-40); AST/SGOT 110 U/L (<34); BILIRUBIN,TOTAL 4.3 MG/DL (0.3-1.2); BLOOD UREA NITROGEN 9 MG/DL (9-23); CALCIUM LEVEL 8.1 MG/DL (8.5-10.1); CARBON DIOXIDE LEVEL 27 MMOL/L (20-31); CHLORIDE LEVEL 108 MMOL/L (98-107); CREATININE FOR GFR 0.54 MG/DL (0.55-1.30); GLOMERULAR FILTRATION RATE > 60.0 (>51); GLUCOSE, FASTING 105 MG/DL (60-100); POTASSIUM SERUM 3.1 MMOL/L (3.5-5.1); SALICYLATE LEVEL < 3.0 MG/DL (<30); SODIUM LEVEL 147 MMOL/L (136-145); TOTAL PROTEIN 6.2 G/DL (5.7-8.2)
[2023-04-18 15:11] LABS: THYROID STIMULATING HORMONE 0.696 uIU/ML (0.55-4.78)
[2023-04-18 15:26] LABS: ACETAMINOPHEN LEVEL < 2.0 UG/ML (10.0-20.0); ETHYL ALCOHOL (ETHANOL) 0.414 % (0.000-0.010)
[2023-04-18 15:42] LABS: PLATELET COUNT, AUTOMATED 72 10^3/uL (150-450)
[2023-04-18] MEDS ORDERED: HOME MED LIST COMPLETE! XX SCH (15:50)
[2023-04-18] MEDS ORDERED: POTASSIUM CHLORIDE 10MEQ SR TABLET PO ONE ×2 (16:20→21:20)
[2023-04-18] MEDS ORDERED: LORazepam 2 MG TAB PO PRN (16:25)
[2023-04-18] MEDS ORDERED: THIAMINE 100 MG TAB PO SCH (16:30)
[2023-04-18] MEDS ORDERED: KCL 10MEQ/100ML SWI (KRUN) 10 MEQ in IV 1 EA IV ONE (17:55)
[2023-04-18 18:07] LABS: AMPHETAMINES LEVEL URINE NEGATIVE (NEGATIVE)
[2023-04-18 18:16] LABS: MAGNESIUM LEVEL 1.9 MG/DL (1.8-2.4)
[2023-04-18 20:37] LABS: BLOOD UREA NITROGEN 8 MG/DL (9-23); CALCIUM LEVEL 7.8 MG/DL (8.5-10.1); CARBON DIOXIDE LEVEL 29 MMOL/L (20-31); CHLORIDE LEVEL 105 MMOL/L (98-107); CREATININE FOR GFR 0.57 MG/DL (0.55-1.30); GLOMERULAR FILTRATION RATE > 60.0 (>51); GLUCOSE, FASTING 104 MG/DL (60-100); POTASSIUM SERUM 3.4 MMOL/L (3.5-5.1); SODIUM LEVEL 143 MMOL/L (136-145)
[2023-04-18] MEDS ORDERED: NICOTINE 21MG/24HR 1 EA TRANSDERMAL TD ONE (21:55)
[2023-04-19] MEDS ORDERED: ONDANSETRON 4MG ORAL DISINTEGRATING TAB SL STA (03:35)
[2023-04-19] MEDS ORDERED: LORazepam 2 MG/ML 1ML VIAL IM STA (03:35)
[2023-04-19] MEDS ORDERED: LORazepam 2 MG/ML 1ML VIAL As Ordered ONE (03:59)
[2023-04-19] MEDS ORDERED: ONDANSETRON 4MG ORAL DISINTEGRATING TAB As Ordered ONE (04:06)
[2023-04-19] MEDS ORDERED: FOLIC ACID 1MG TAB PO SCH (09:00)
[2023-04-19] MEDS ORDERED: MULTIVITAMINS/MINERALS THERAP 1 TAB PO SCH (09:00)
[2023-04-19 09:01] VITALS: BP 110/75; TEMP 98; O2SAT 97
== END 2023-04-19 09:05 | disposition home or self-care (01) ==
LOC: M ED 12:54
DX: F10.130 Alcohol abuse with withdrawal, uncomplicated (principal); B19.20 Unspecified viral hepatitis C without hepatic coma; F32.A Depression, unspecified; F31.9 Bipolar disorder, unspecified; F17.200 Nicotine dependence, unspecified, uncomplicated

== ENCOUNTER 2023-04-29 23:17 | Emergency (ER) | payer OTHER, MEDICAID ==
[~2023-04-29] VITALS: Ht 165.1 cm; Wt 68.2 kg
[2023-04-29 23:28] VITALS: BP 121/84; TEMP 97.7; O2SAT 95
[2023-04-29] MEDS ORDERED: NS 1,000 ML IV ONE (23:35)
== END 2023-04-30 00:04 | disposition left against medical advice (07) ==
LOC: M ED 23:17
DX: Z53.21 Procedure and treatment not carried out due to patient leaving prior to being seen by health care provider (principal)

== ENCOUNTER → 2023-07-01 | Outpatient (CLI) | payer OTHER, MEDICAID ==
[~2023-07-01] MED LIST changes: -ROPI0.5T3 PO; +ROPI0.5T33 PO
== END ==
LOC: M PAIN 15:00
PROVIDERS: ATTEND Nurse Practitioner Family
DX: M96.1 Postlaminectomy syndrome, not elsewhere classified (principal); G89.29 Other chronic pain; F10.21 Alcohol dependence, in remission; K76.0 Fatty (change of) liver, not elsewhere classified; D64.9 Anemia, unspecified; F41.1 Generalized anxiety disorder; F40.00 Agoraphobia, unspecified; F31.9 Bipolar disorder, unspecified; F17.210 Nicotine dependence, cigarettes, uncomplicated; Z79.899 Other long term (current) drug therapy

== ENCOUNTER → 2023-08-11 | Outpatient (CLI) | payer OTHER, MEDICAID ==
[2023-08-11 17:39] LABS: BASO # 0.1 10^3/uL (0.0-0.2); BASO % 1.1 % (0.0-1.0); EOS # 0.2 10^3/uL (0.0-0.5); EOS % 3.4 % (0.0-3.0); HEMATOCRIT 38.7 % (36.0-47.0); HEMOGLOBIN 13.1 g/dl (12.0-15.5); LYMPH # 2.1 10^3/uL (1.5-5.0); LYMPH % 46.1 % (24.0-44.0); MEAN CORPUSCULAR HGB CONC 33.9 g/dl (32.0-36.5); MEAN CORPUSCULAR VOLUME 103.5 fl (80.0-96.0); MONO # 0.4 10^3/uL (0.0-0.8); MONO % 8.8 % (2.0-8.0); NEUTROPHILS # 1.8 10^3/uL (1.5-8.5); NEUTROPHILS % 40.4 % (36.0-66.0); PLATELET COUNT, AUTOMATED 123 10^3/uL (150-450); RED BLOOD COUNT 3.74 10^6/uL (4.00-5.40); WHITE BLOOD COUNT 4.5 10^3/uL (4.0-10.0)
[2023-08-11 17:51] LABS: IRON (FE) 106 UG/DL (50-170); PERCENT SATURATION 27.7 % (13.2-45.0); TOTAL IRON BINDING CAPACITY 383 UG/DL (250-425)
[2023-08-11 17:54] LABS: ALBUMIN 3.3 G/DL (3.2-5.2); ALKALINE PHOSPHATASE 180 U/L (46-116); ALT/SGPT 29 U/L (7.0-40); AST/SGOT 35 U/L (<34); BILIRUBIN,TOTAL 1.9 MG/DL (0.3-1.2); BLOOD UREA NITROGEN 11 MG/DL (9-23); CALCIUM LEVEL 9.1 MG/DL (8.5-10.1); CARBON DIOXIDE LEVEL 26 MMOL/L (20-31); CHLORIDE LEVEL 110 MMOL/L (98-107); CHOLESTEROL LEVEL 132 MG/DL (<200); CHOLESTEROL RISK RATIO 2.37 (<5); CREATININE FOR GFR 0.55 MG/DL (0.55-1.30); FERRITIN 83.7 NG/ML (7.3-270.7); FOLATE 13.83 NG/ML (>5.4); FREE T4 0.73 NG/DL (0.89-1.76); GLOMERULAR FILTRATION RATE > 60.0 (>51); GLUCOSE, FASTING 116 MG/DL (60-100); HDL CHOLESTEROL 55.5 MG/DL (>40); LDL CHOLESTEROL 61.9 MG/DL (<100); NON-HDL-C 76.5 MG/DL; POTASSIUM SERUM 4.2 MMOL/L (3.5-5.1); SODIUM LEVEL 143 MMOL/L (136-145); THYROID STIMULATING HORMONE 2.728 uIU/ML (0.55-4.78); TRIGLYCERIDES LEVEL 73 MG/DL (<150); VITAMIN B12 LEVEL 554 PG/ML (211-911)
[2023-08-11 18:03] LABS: INR 1.19; PROTHROMBIN TIME 14.8 SECONDS (12.5-14.5)
[2023-08-11 18:38] LABS: HEMOGLOBIN A1c 4.5 % (4.0-6.0)
== END ==
LOC: M PLALAB 15:43
PROVIDERS: ATTEND Student in an Organized Health Care Education/Training Program
DX: Z00.00 Encounter for general adult medical examination without abnormal findings (principal)

== ENCOUNTER → 2023-09-28 | Outpatient (CLI) | payer OTHER, MEDICAID | LOC: M RAD 08:19 | PROVIDERS: ATTEND Student in an Organized Health Care Education/Training Program | DX: K70.30 Alcoholic cirrhosis of liver without ascites (principal); K76.89 Other specified diseases of liver; K80.20 Calculus of gallbladder without cholecystitis without obstruction ==

== ENCOUNTER → 2023-10-07 | Outpatient (CLI) | payer OTHER, MEDICAID | LOC: M PAIN 09:15 | PROVIDERS: ATTEND Nurse Practitioner Family | DX: M96.1 Postlaminectomy syndrome, not elsewhere classified (principal); M46.1 Sacroiliitis, not elsewhere classified; G89.29 Other chronic pain; F17.210 Nicotine dependence, cigarettes, uncomplicated ==

== ENCOUNTER → 2023-11-10 | Outpatient (CLI) | payer OTHER, MEDICAID ==
[~2023-11-10] MED LIST changes: +PROHANCE 279.3MG/ML 15ML VIAL ONE; +PROHANCE 279.3MG/ML 5ML VIAL ONE
== END ==
LOC: M PLAIMG 12:18
PROVIDERS: ATTEND Nurse Practitioner Family
DX: M96.1 Postlaminectomy syndrome, not elsewhere classified (principal); M46.1 Sacroiliitis, not elsewhere classified; M51.26 Other intervertebral disc displacement, lumbar region
CPT/HCPCS: 72158; 72195; A9576

== ENCOUNTER → 2023-11-24 | Outpatient (CLI) | payer OTHER, MEDICAID ==
[~2023-11-24] MED LIST changes: -PROHANCE 279.3MG/ML 15ML VIAL ONE; -PROHANCE 279.3MG/ML 5ML VIAL ONE
== END ==
LOC: M PAIN 10:45
PROVIDERS: ATTEND Nurse Practitioner Family
DX: M46.1 Sacroiliitis, not elsewhere classified (principal); G89.29 Other chronic pain; F41.1 Generalized anxiety disorder; D64.9 Anemia, unspecified; F17.210 Nicotine dependence, cigarettes, uncomplicated; Z79.899 Other long term (current) drug therapy

== ENCOUNTER → 2023-12-08 | Outpatient (CLI) | payer OTHER, MEDICAID ==
[2023-12-08 17:35] LABS: HEMOGLOBIN 14.1 g/dl (12.0-15.5); MEAN CORPUSCULAR HEMOGLOBIN 34.1 pg (27.0-33.0); MEAN CORPUSCULAR HGB CONC 33.6 g/dl (32.0-36.5); MEAN CORPUSCULAR VOLUME 101.4 fl (80.0-96.0); PLATELET COUNT, AUTOMATED 106 10^3/uL (150-450); RED BLOOD COUNT 4.14 10^6/uL (4.00-5.40); WHITE BLOOD COUNT 3.8 10^3/uL (4.0-10.0)
[2023-12-08 18:02] LABS: ALBUMIN 3.6 G/DL (3.2-5.2); ALKALINE PHOSPHATASE 157 U/L (46-116); ALT/SGPT 21 U/L (7.0-40); AST/SGOT 24 U/L (<34); BILIRUBIN,TOTAL 3.5 MG/DL (0.3-1.2); BLOOD UREA NITROGEN 11 MG/DL (9-23); CALCIUM LEVEL 9.2 MG/DL (8.5-10.1); CARBON DIOXIDE LEVEL 26 MMOL/L (20-31); CHLORIDE LEVEL 105 MMOL/L (98-107); CREATININE FOR GFR 0.49 MG/DL (0.55-1.30); GLOMERULAR FILTRATION RATE > 60.0 (>51); GLUCOSE, FASTING 100 MG/DL (60-100); POTASSIUM SERUM 4.1 MMOL/L (3.5-5.1); SODIUM LEVEL 140 MMOL/L (136-145); TOTAL PROTEIN 6.9 G/DL (5.7-8.2)
== END ==
LOC: M PLALAB 15:57
PROVIDERS: ATTEND Family Medicine
DX: Z01.818 Encounter for other preprocedural examination (principal); K70.30 Alcoholic cirrhosis of liver without ascites

== ENCOUNTER 2023-12-27 13:12 | Day surgery (SDC) | payer OTHER, MEDICAID ==
[~2023-12-27] VITALS: Ht 165.1 cm; Wt 97.1 kg
[~2023-12-27 13:12] MED LIST changes: +LIDOCAINE 2% 100MG/5ML SDV (FOR ANES.) As Ordered ONE; +propofoL 200 MG/20 ML VIAL As Ordered ONE
[2023-12-27] MEDS ORDERED: fentaNYL 100 MCG/2 ML INJECTION As Ordered ONE (13:33)
[2023-12-27] MEDS: NS 1,000 ML IV ONE (13:33)
[2023-12-27 14:47] VITALS: TEMP 98.4
[2023-12-27 15:05] VITALS: BP 136/76; O2SAT 97
== END 2023-12-27 15:17 | disposition home or self-care (01) ==
LOC: M OPP 13:12
PROVIDERS: ATTEND Internal Medicine Gastroenterology
DX: I85.00 Esophageal varices without bleeding (principal); K74.60 Unspecified cirrhosis of liver; G47.30 Sleep apnea, unspecified; F17.200 Nicotine dependence, unspecified, uncomplicated
CPT/HCPCS: 43235; J3010

== ENCOUNTER 2024-01-11 12:14 | Outpatient (RCR) | payer OTHER, MEDICAID ==
[~2024-01-11 12:14] MED LIST changes: -LIDOCAINE 2% 100MG/5ML SDV (FOR ANES.) As Ordered ONE; -propofoL 200 MG/20 ML VIAL As Ordered ONE
== END 2024-02-05 ==
LOC: M PT 12:14
PROVIDERS: ATTEND Nurse Practitioner Family
DX: M43.06 Spondylolysis, lumbar region (principal); M54.50 Low back pain, unspecified

== ENCOUNTER → 2024-01-16 | Outpatient (CLI) | payer OTHER, MEDICAID | LOC: M PAIN 15:30 | PROVIDERS: ATTEND Nurse Practitioner Family | DX: M46.1 Sacroiliitis, not elsewhere classified (principal); G89.29 Other chronic pain; M54.50 Low back pain, unspecified; K76.0 Fatty (change of) liver, not elsewhere classified; D64.9 Anemia, unspecified; F41.1 Generalized anxiety disorder; F40.00 Agoraphobia, unspecified; F17.210 Nicotine dependence, cigarettes, uncomplicated ==

== ENCOUNTER → 2024-02-21 | Outpatient (REF) | payer OTHER, MEDICAID | LOC: M SFHCPLAZ 15:14 | PROVIDERS: ATTEND Student in an Organized Health Care Education/Training Program | DX: R35.0 Frequency of micturition (principal) ==

== ENCOUNTER → 2024-03-23 | Outpatient (CLI) | payer OTHER, MEDICAID ==
[~2024-03-23] MED LIST changes: +DOXY-323 PO; -DOXY-443 PO
[2024-03-23 18:39] LABS: ALBUMIN 3.4 G/DL (3.2-5.2); ALKALINE PHOSPHATASE 155 U/L (46-116); ALT/SGPT 71 U/L (7.0-40); AST/SGOT 94 U/L (<34); BILIRUBIN,TOTAL 2.4 MG/DL (0.3-1.2); BLOOD UREA NITROGEN 11 MG/DL (9-23); CALCIUM LEVEL 9.3 MG/DL (8.5-10.1); CARBON DIOXIDE LEVEL 26 MMOL/L (20-31); CHLORIDE LEVEL 109 MMOL/L (98-107); GLOMERULAR FILTRATION RATE > 60.0 (>51); GLUCOSE, FASTING 102 MG/DL (60-100); MAGNESIUM LEVEL 1.6 MG/DL (1.8-2.4); SODIUM LEVEL 142 MMOL/L (136-145); TOTAL PROTEIN 6.1 G/DL (5.7-8.2)
== END ==
LOC: M PLALAB 15:26
PROVIDERS: ATTEND Student in an Organized Health Care Education/Training Program
DX: K70.31 Alcoholic cirrhosis of liver with ascites (principal)

== ENCOUNTER → 2024-04-20 | Outpatient (CLI) | payer OTHER, MEDICAID ==
[~2024-04-20] MED LIST changes: +ISOVUE-M 300 61% 15ML VIAL As Ordered ONE; +LIDOCAINE 1% SDV 30ML VIAL As Ordered ONE; +NORCO, ANEXSIA 5/325MG TABLET (HYDROcodone/ACETAMINOPHEN) As Ordered ONE; +TRIAMCINOLONE ACETONIDE SUSP 40MG/ML 1ML VIAL As Ordered ONE; +diazePAM 5MG TABLET As Ordered ONE; +oxyCODONE 5MG TAB As Ordered ONE
== END ==
LOC: M PAIN 10:00
PROVIDERS: ATTEND Anesthesiology
DX: M53.3 Sacrococcygeal disorders, not elsewhere classified (principal); G89.29 Other chronic pain; M54.50 Low back pain, unspecified; F10.21 Alcohol dependence, in remission; F41.1 Generalized anxiety disorder; F31.9 Bipolar disorder, unspecified; B18.2 Chronic viral hepatitis C; F17.210 Nicotine dependence, cigarettes, uncomplicated; Z79.899 Other long term (current) drug therapy
CPT/HCPCS: G0260; J0665; J3301; Q9967

== ENCOUNTER → 2024-05-18 | Outpatient (CLI) | payer OTHER, MEDICAID ==
[~2024-05-18] MED LIST changes: -ISOVUE-M 300 61% 15ML VIAL As Ordered ONE; -LIDOCAINE 1% SDV 30ML VIAL As Ordered ONE; -NORCO, ANEXSIA 5/325MG TABLET (HYDROcodone/ACETAMINOPHEN) As Ordered ONE; -TRIAMCINOLONE ACETONIDE SUSP 40MG/ML 1ML VIAL As Ordered ONE; -diazePAM 5MG TABLET As Ordered ONE; -oxyCODONE 5MG TAB As Ordered ONE
[2024-05-18 16:48] LABS: BASO % 0.6 % (0.0-1.0); EOS # 0.1 10^3/uL (0.0-0.5); HEMATOCRIT 45.5 % (36.0-47.0); HEMOGLOBIN 15.4 g/dl (12.0-15.5); LYMPH # 2.5 10^3/uL (1.5-5.0); LYMPH % 48.3 % (24.0-44.0); MEAN CORPUSCULAR HGB CONC 33.8 g/dl (32.0-36.5); MEAN CORPUSCULAR VOLUME 103.4 fl (80.0-96.0); MONO # 0.8 10^3/uL (0.0-0.8); MONO % 15.9 % (2.0-8.0); NEUTROPHILS # 1.7 10^3/uL (1.5-8.5); PLATELET COUNT, AUTOMATED 139 10^3/uL (150-450); WHITE BLOOD COUNT 5.1 10^3/uL (4.0-10.0)
[2024-05-18 17:06] LABS: INR 1.15; PROTHROMBIN TIME 14.3 SECONDS (12.5-14.5)
[2024-05-18 17:16] LABS: COLLAGEN EPINEPHRINE 129 SECONDS (74-162)
[2024-05-18 17:25] LABS: ALBUMIN 3.8 G/DL (3.2-5.2); ALKALINE PHOSPHATASE 163 U/L (46-116); ALT/SGPT 26 U/L (7.0-40); AST/SGOT 26 U/L (<34); BILIRUBIN,TOTAL 3.4 MG/DL (0.3-1.2); BLOOD UREA NITROGEN 17 MG/DL (9-23); CALCIUM LEVEL 9.3 MG/DL (8.5-10.1); CARBON DIOXIDE LEVEL 25 MMOL/L (20-31); CHLORIDE LEVEL 108 MMOL/L (98-107); CREATININE FOR GFR 0.59 MG/DL (0.55-1.30); GLOMERULAR FILTRATION RATE > 60.0 (>51); GLUCOSE, FASTING 88 MG/DL (60-100); SODIUM LEVEL 139 MMOL/L (136-145); TOTAL PROTEIN 6.8 G/DL (5.7-8.2)
== END ==
LOC: M PLALAB 16:13
PROVIDERS: ATTEND Student in an Organized Health Care Education/Training Program
DX: Z00.00 Encounter for general adult medical examination without abnormal findings (principal); K70.31 Alcoholic cirrhosis of liver with ascites

== ENCOUNTER → 2024-05-21 | Outpatient (CLI) | payer OTHER, MEDICAID | LOC: M PAIN 14:00 | PROVIDERS: ATTEND Nurse Practitioner Family | DX: M79.18 Myalgia, other site (principal); G89.29 Other chronic pain; M54.50 Low back pain, unspecified; F10.21 Alcohol dependence, in remission; D64.9 Anemia, unspecified; F41.1 Generalized anxiety disorder; F31.9 Bipolar disorder, unspecified; F17.210 Nicotine dependence, cigarettes, uncomplicated; Z79.899 Other long term (current) drug therapy ==

== ENCOUNTER → 2024-06-26 | Outpatient (CLI) | payer OTHER, MEDICAID ==
[~2024-06-26] MED LIST changes: +TRIAMCINOLONE ACETONIDE SUSP 40MG/ML 1ML VIAL As Ordered ONE; +diazePAM 5MG TABLET As Ordered ONE; +oxyCODONE 5MG TAB As Ordered ONE
== END ==
LOC: M PAIN 13:00
PROVIDERS: ATTEND Anesthesiology
DX: M79.18 Myalgia, other site (principal); F41.1 Generalized anxiety disorder; F31.9 Bipolar disorder, unspecified; G89.21 Chronic pain due to trauma; M54.50 Low back pain, unspecified; K76.0 Fatty (change of) liver, not elsewhere classified; F17.210 Nicotine dependence, cigarettes, uncomplicated; Z79.899 Other long term (current) drug therapy
CPT/HCPCS: 20552; J0665; J3301

== ENCOUNTER → 2024-07-27 | Outpatient (CLI) | payer OTHER, MEDICAID ==
[~2024-07-27] MED LIST changes: +ACET650T61 PO; +CYCL5TAB; -DOXY-323 PO; +DOXY-441 PO; +FOLI1TAB11; +FURO40TA2; +GABA-1172; +LIDO5DIS41 TD; +MAGN400T2; +MEDR4PAK PO; +METH-1164 PO; +PANT40TA29; +PROP20TA72; +SPIR100T3; -TRIAMCINOLONE ACETONIDE SUSP 40MG/ML 1ML VIAL As Ordered ONE; -diazePAM 5MG TABLET As Ordered ONE; -oxyCODONE 5MG TAB As Ordered ONE
== END ==
LOC: M PAIN 15:00
PROVIDERS: ATTEND Nurse Practitioner Family
DX: G89.29 Other chronic pain (principal); M46.1 Sacroiliitis, not elsewhere classified; M96.1 Postlaminectomy syndrome, not elsewhere classified; M54.50 Low back pain, unspecified; M25.552 Pain in left hip; F10.21 Alcohol dependence, in remission; D64.9 Anemia, unspecified; F17.210 Nicotine dependence, cigarettes, uncomplicated; F40.00 Agoraphobia, unspecified; F31.9 Bipolar disorder, unspecified; Z79.899 Other long term (current) drug therapy

== ENCOUNTER 2024-08-13 06:25 | Emergency (ER) | payer OTHER, MEDICAID ==
[~2024-08-13] VITALS: Ht 165.1 cm; Wt 97.7 kg
[~2024-08-13 06:25] MED LIST changes: -ACET650T61 PO; -CYCL5TAB; -FOLI1TAB11; -FURO40TA2; -GABA-1172; -LIDO5DIS41 TD; -MAGN400T2; -MEDR4PAK PO; -METH-1164 PO; -PANT40TA29; -PROP20TA72; -SPIR100T3
[2024-08-13] MEDS ORDERED: GABA-1172 (07:19)
[2024-08-13] MEDS ORDERED: PROP20TA72 (07:19)
[2024-08-13] MEDS ORDERED: FURO40TA2 (07:19)
[2024-08-13] MEDS ORDERED: PANT40TA29 (07:19)
[2024-08-13] MEDS ORDERED: FOLI1TAB11 (07:19)
[2024-08-13] MEDS ORDERED: CYCL5TAB (07:19)
[2024-08-13] MEDS ORDERED: ACET650T61 PO (07:19)
[2024-08-13] MEDS ORDERED: SPIR100T3 (07:19)
[2024-08-13] MEDS ORDERED: MAGN400T2 (07:19)
[2024-08-13] MEDS: LIDOCAINE 5% (LIDODERM) PATCH TD ONE (08:25)
[2024-08-13] MEDS: ACETAMINOPHEN 325 MG TAB PO ONE (08:25)
[2024-08-13] MEDS: KETOROLAC 30 MG/ML 1ML VIAL IM ONE (08:26)
[2024-08-13 09:20] VITALS: BP 139/88; TEMP 98.1; O2SAT 98
[2024-08-13] MEDS ORDERED: LIDO5DIS41 TD (10:09)
[2024-08-13] MEDS ORDERED: METH-1164 PO (10:13)
[2024-08-13] MEDS ORDERED: MEDR4PAK PO (10:13)
== END 2024-08-13 10:20 | disposition home or self-care (01) ==
LOC: M ED 06:25
DX: M54.32 Sciatica, left side (principal); M54.50 Low back pain, unspecified; K21.9 Gastro-esophageal reflux disease without esophagitis; G40.909 Epilepsy, unspecified, not intractable, without status epilepticus; F17.210 Nicotine dependence, cigarettes, uncomplicated; Z79.1 Long term (current) use of non-steroidal anti-inflammatories (NSAID); Z79.899 Other long term (current) drug therapy
CPT/HCPCS: 96372; 99283; J1885

== ENCOUNTER → 2024-08-23 | Outpatient (CLI) | payer OTHER, MEDICAID ==
[~2024-08-23] MED LIST changes: +ACET650T61 PO; +CYCL5TAB; +FOLI1TAB11; +FURO40TA2; +GABA-1172; +LIDO5DIS41 TD; +MAGN400T2; +MEDR4PAK PO; +METH-1164 PO; +PANT40TA29; +PROP20TA72; +SPIR100T3
== END ==
LOC: M CLY 14:16
PROVIDERS: ATTEND Internal Medicine Hematology
DX: M54.42 Lumbago with sciatica, left side (principal); Z53.9 Procedure and treatment not carried out, unspecified reason

== ENCOUNTER 2024-08-30 10:23 | Emergency (ER) | payer MEDICAID, OTHER ==
[~2024-08-30] VITALS: Ht 165.1 cm; Wt 100.0 kg
[2024-08-30 10:35] VITALS: TEMP 99.2
[2024-08-30] MEDS: LIDOCAINE 5% (LIDODERM) PATCH TD ONE (13:08)
[2024-08-30] MEDS: ACETAMINOPHEN 500 MG TAB PO ONE (13:08)
[2024-08-30] MEDS: KETOROLAC 30 MG/ML 1ML VIAL IM ONE (13:09)
[2024-08-30 15:01] VITALS: BP 137/64; O2SAT 99
== END 2024-08-30 15:03 | disposition home or self-care (01) ==
LOC: M ED 10:23
DX: M54.16 Radiculopathy, lumbar region (principal); M54.41 Lumbago with sciatica, right side; F17.210 Nicotine dependence, cigarettes, uncomplicated; Z79.1 Long term (current) use of non-steroidal anti-inflammatories (NSAID); Z79.899 Other long term (current) drug therapy
CPT/HCPCS: 96372; 99284; J1885

== ENCOUNTER → 2024-09-12 | Outpatient (CLI) | payer OTHER, MEDICAID ==
[~2024-09-12] MED LIST changes: -CYCL5TAB; +CYCL5TAB4; -LACT10SO3 PO; +LACT10SO94 PO
== END ==
LOC: M PAIN 14:00
PROVIDERS: ATTEND Anesthesiology
DX: M96.1 Postlaminectomy syndrome, not elsewhere classified (principal); M54.16 Radiculopathy, lumbar region; G89.11 Acute pain due to trauma; F41.1 Generalized anxiety disorder; F31.9 Bipolar disorder, unspecified; F40.00 Agoraphobia, unspecified; B18.2 Chronic viral hepatitis C; F10.20 Alcohol dependence, uncomplicated; F17.210 Nicotine dependence, cigarettes, uncomplicated; Z79.891 Long term (current) use of opiate analgesic; Z79.899 Other long term (current) drug therapy

== ENCOUNTER → 2024-09-18 | Outpatient (CLI) | payer OTHER, MEDICAID | LOC: M PLAIMG 08:24 | PROVIDERS: ATTEND Student in an Organized Health Care Education/Training Program | DX: M54.42 Lumbago with sciatica, left side (principal) ==

== ENCOUNTER → 2024-11-15 | Outpatient (CLI) | payer OTHER, MEDICAID | LOC: M CARPUL 08:54 | PROVIDERS: ATTEND Student in an Organized Health Care Education/Training Program | DX: R01.1 Cardiac murmur, unspecified (principal) ==

== ENCOUNTER 2025-02-01 14:17 | Outpatient (RCR) | payer OTHER, MEDICAID | END 2025-02-04 | LOC: M PT 14:17 | PROVIDERS: ATTEND Physician Assistant | DX: Z98.890 Other specified postprocedural states (principal) | CPT/HCPCS: 97110; 97163; G0283 ==

== ENCOUNTER → 2025-02-14 | Outpatient (CLI) | payer MEDICARE, MEDICAID | LOC: M RAD 08:45 | PROVIDERS: ATTEND Pain Medicine Pain Medicine | DX: Z98.890 Other specified postprocedural states (principal) ==

== ENCOUNTER 2025-03-04 10:41 | Outpatient (RCR) | payer OTHER, MEDICAID | END 2025-03-06 | LOC: M PT 10:41 | PROVIDERS: ATTEND Physician Assistant | DX: Z51.89 Encounter for other specified aftercare (principal); Z98.890 Other specified postprocedural states ==

== ENCOUNTER → 2025-03-04 | Outpatient (CLI) | payer MEDICARE, MEDICAID ==
[~2025-03-04] MED LIST changes: -AMBI10TA PO; +ZOLP-533 PO
[2025-03-04 14:00] LABS: BASO % 0.5 % (0.0-1.0); EOS # 0.2 10^3/uL (0.0-0.5); EOS % 3.2 % (0.0-3.0); HEMOGLOBIN 14.5 g/dl (12.0-15.5); LYMPH # 1.9 10^3/uL (1.5-5.0); LYMPH % 33.5 % (24.0-44.0); MEAN CORPUSCULAR HEMOGLOBIN 33.8 pg (27.0-33.0); MEAN CORPUSCULAR HGB CONC 34.5 g/dl (32.0-36.5); MEAN CORPUSCULAR VOLUME 97.9 fl (80.0-96.0); MONO # 0.5 10^3/uL (0.0-0.8); MONO % 8.8 % (2.0-8.0); NEUTROPHILS # 3.1 10^3/uL (1.5-8.5); NEUTROPHILS % 53.8 % (36.0-66.0); PLATELET COUNT, AUTOMATED 145 10^3/uL (150-450); RED BLOOD COUNT 4.29 10^6/uL (4.00-5.40); WHITE BLOOD COUNT 5.7 10^3/uL (4.0-10.0)
[2025-03-04 14:15] LABS: HEMOGLOBIN A1c 4.7 % (4.0-6.0)
[2025-03-04 14:23] LABS: FREE T4 0.82 NG/DL (0.89-1.76); THYROID STIMULATING HORMONE 2.067 uIU/ML (0.55-4.78)
[2025-03-04 14:31] LABS: ALBUMIN 3.5 G/DL (3.2-5.2); ALKALINE PHOSPHATASE 125 U/L (35-104); ALT/SGPT 13 U/L (7.0-40); AST/SGOT 18 U/L (<34); BILIRUBIN,TOTAL 2.1 MG/DL (0.3-1.2); BLOOD UREA NITROGEN 17 MG/DL (9-23); CALCIUM LEVEL 9.6 MG/DL (8.5-10.1); CARBON DIOXIDE LEVEL 26 MMOL/L (20-31); CHLORIDE LEVEL 110 MMOL/L (98-107); CHOLESTEROL LEVEL 155 MG/DL (<200); CHOLESTEROL RISK RATIO 2.76 (<5); CREATININE FOR GFR 0.63 MG/DL (0.55-1.30); GLOMERULAR FILTRATION RATE > 90.0 (>51); GLUCOSE, FASTING 96 MG/DL (60-100); LDL CHOLESTEROL 76.2 MG/DL (<100); MAGNESIUM LEVEL 1.6 MG/DL (1.8-2.4); POTASSIUM SERUM 4.3 MMOL/L (3.5-5.1); SODIUM LEVEL 143 MMOL/L (136-145); TOTAL PROTEIN 6.3 G/DL (5.7-8.2); TRIGLYCERIDES LEVEL 114 MG/DL (<150)
== END ==
LOC: M PLALAB 11:48
PROVIDERS: ATTEND Student in an Organized Health Care Education/Training Program
DX: K70.31 Alcoholic cirrhosis of liver with ascites (principal); E78.00 Pure hypercholesterolemia, unspecified

== ENCOUNTER → 2025-05-08 | Outpatient (CLI) | payer MEDICARE, MEDICAID ==
[~2025-05-08] MED LIST changes: +LIDO1ADH93 TD; -LIDO5DIS41 TD
[2025-05-08 17:49] LABS: BASO # 0.0 10^3/uL (0.0-0.2); BASO % 0.5 % (0.0-1.0); EOS # 0.2 10^3/uL (0.0-0.5); EOS % 2.6 % (0.0-3.0); LYMPH # 2.5 10^3/uL (1.5-5.0); LYMPH % 43.8 % (24.0-44.0); MONO # 0.7 10^3/uL (0.0-0.8); MONO % 12.1 % (2.0-8.0); NEUTROPHILS # 2.3 10^3/uL (1.5-8.5); NEUTROPHILS % 40.8 % (36.0-66.0); PLATELET COUNT, AUTOMATED 151 10^3/uL (150-450)
[2025-05-08 18:09] LABS: INR 1.05
[2025-05-08 18:17] LABS: ALT/SGPT 13 U/L (7.0-40); AST/SGOT 29 U/L (<34); CALCIUM LEVEL 8.8 MG/DL (8.5-10.1); CARBON DIOXIDE LEVEL 28 MMOL/L (20-31); CHLORIDE LEVEL 101 MMOL/L (98-107); CREATININE FOR GFR 0.61 MG/DL (0.55-1.30); GLOMERULAR FILTRATION RATE > 90.0 (>51); POTASSIUM SERUM 3.7 MMOL/L (3.5-5.1); SODIUM LEVEL 142 MMOL/L (136-145)
== END ==
LOC: M LAB 17:11
PROVIDERS: ATTEND Internal Medicine Gastroenterology
DX: K70.30 Alcoholic cirrhosis of liver without ascites (principal)

== ENCOUNTER 2025-06-06 12:08 | Day surgery (SDC) | payer MEDICARE, MEDICAID ==
[~2025-06-06] VITALS: Ht 165.1 cm; Wt 102.1 kg
[~2025-06-06 12:08] MED LIST changes: +OXYC-517 PO
[2025-06-06] MEDS ORDERED: GLYCOPYRROLATE INJ 0.2 MG/ML 2 ML VIAL As Ordered ONE (14:47)
[2025-06-06] MEDS ORDERED: LIDOCAINE 2% 100 MG/5 ML SDV (FOR ANES.) As Ordered ONE (14:47)
[2025-06-06 15:41] VITALS: BP 116/65; O2SAT 96
== END 2025-06-06 15:50 | disposition home or self-care (01) ==
LOC: M OPP 12:08
PROVIDERS: ATTEND Internal Medicine Gastroenterology
DX: Z12.11 Encounter for screening for malignant neoplasm of colon (principal); Z80.0 Family history of malignant neoplasm of digestive organs; I85.00 Esophageal varices without bleeding; G47.30 Sleep apnea, unspecified; Z79.891 Long term (current) use of opiate analgesic; Z79.899 Other long term (current) drug therapy; R56.9 Unspecified convulsions; F17.210 Nicotine dependence, cigarettes, uncomplicated
CPT/HCPCS: 43235; G0105; J1596; J3010

== ENCOUNTER → 2025-06-11 | Outpatient (CLI) | payer MEDICARE, MEDICAID | LOC: M RAD 09:26 | PROVIDERS: ATTEND Internal Medicine Gastroenterology | DX: K70.30 Alcoholic cirrhosis of liver without ascites (principal); K80.20 Calculus of gallbladder without cholecystitis without obstruction; K76.0 Fatty (change of) liver, not elsewhere classified ==

== ENCOUNTER → 2025-07-03 | Outpatient (REF) | payer MEDICARE | LOC: M SFHCPLAZ 21:56 | PROVIDERS: ATTEND Family Medicine | DX: Z53.9 Procedure and treatment not carried out, unspecified reason (principal) ==

== ENCOUNTER → 2025-07-16 | Outpatient (CLI) | payer MEDICARE | LOC: M RAD 10:19 | PROVIDERS: ATTEND Physician Assistant | DX: M25.552 Pain in left hip (principal) ==

== ENCOUNTER → 2025-08-22 | Outpatient (CLI) | payer MEDICARE | LOC: M RAD 08:59 | DX: K70.31 Alcoholic cirrhosis of liver with ascites (principal) ==